=== PATIENT | female | born 1955 | race African-American/Black ===

== ENCOUNTER 2016-11-17 00:05 | Emergency (ER) | payer OTHER ==
[~2016-11-17] VITALS: Ht 152.4 cm; Wt 70.8 kg
[~2016-11-17 00:05] MED LIST: ACETAMINOPHEN-1 EAC1 ORAL; AMITRIPTYLINE25 MG PO; ANTIVERT25 MG ORAL; ATIVAN1 MG ORAL; AZITHROMYCIN250 MG ORAL; BACTRIM DS TAB1 EAC1 ORAL; BACTRIM-DS1 EA PO; CIPRO500 MG PO; COLACE100 MG PO; CYCLOBENZAPRINE10 MG ORAL; DIFLUCAN100 MG ORAL; DIFLUCAN150 MG PO; DOXYCYCLINE MO100 MG ORAL; FLAGYL500 MG ORAL; FLAGYL500 MG PO; GLUCOPHAGE500 MG PO; GLYBURIDE MICR1.5 MG PO; GUAIFENESI100 MG/5 M ORAL; HYDROCORTISONE28 G2 TP; IBUPROFEN600 MG ORAL; IBUPROFEN800 MG ORAL; KEFLEX500 MG ORAL; KENALOG 0.1% CR15 GM APPLIC; LIORESAL10 MG PO; LORAZEPAM1 MG ORAL; MECLIZINE HCL25 MG ORAL; METRONIDAZOLE500 MG ORAL; NAPROSYN500 M1 ORAL; NEURONTIN300 MG ORAL; NEURONTIN400 MG PO; NITROFURANTOIN100 M2 ORAL; NITROFURANTOIN100 MG PO; NORCO 10-325 T1 EACH PO; NORCO 10/3251 EA ORAL; ONDANSETRON ODT4 MG PO; PHENAZOPYRIDIN100 MG ORAL; PHENERGAN25 M1 PO; PROMETHAZINE-C118 M1 ORAL; TYLENOL WITH C1 EACH PO; VALIUM5 MG ORAL; VICODIN 5-5001 EACH PO; VICODIN ES 7.51 EACH PO; ZOFRAN ODT4 MG ORAL
[2016-11-17] MEDS ORDERED: Ketorolac 30mg Inj IV ONE (00:30)
[2016-11-17 00:51] LABS: APPEARANCE,URINE CLEAR; KETONES,URINE NEGATIVE (NEGATIVE); LEUKOCYTE ESTERASE ,URINE NEGATIVE (NEGATIVE); PH,URINE 6 (4.5-8.0); PROTEIN,URINE NEGATIVE (NEGATIVE); UROBILINOGEN,URINE NORMAL MG/DL (0.0-1.0)
[2016-11-17 00:53] LABS: NITRITE,URINE NEGATIVE (NEGATIVE)
[2016-11-17 01:10] LABS: BASOPHILS % (AUTO) 1.3 % (0.0-2.0); EOSINOPHILS % (AUTO) 0.8 % (0.0-3.0); MEAN CORPUSCULAR HEMOGLOBIN 29.4 PG (27.0-31.0); MEAN CORPUSCULAR HGB CONC 33.8 G/DL (32.0-36.0); MEAN CORPUSCULAR VOLUME 87 FL (80-99); MEAN PLATELET VOLUME 8.5 FL (6.5-10.1); MONOCYTES % (AUTO) 3.3 % (1.0-10.0); NEUTROPHILS % (AUTO) 56.6 % (45.0-75.0); PLATELET COUNT 237 K/UL (150-450); RED BLOOD COUNT 5.25 M/UL (4.20-5.40); RED CELL DISTRIBUTION WIDTH 11.9 % (11.6-14.8); WHITE BLOOD COUNT 10.5 K/UL (4.8-10.8)
[2016-11-17 01:34] LABS: ALANINE AMINOTRANSFERASE 9 U/L (3-33); ALBUMIN/GLOBULIN RATIO 1.5 (1.0-2.7); ANION GAP 17 (5-15); ASPARTATE AMINO TRANSFERASE 16 U/L (5-40); CALCIUM 9.9 mg/dL (8.6-10.2); CARBON DIOXIDE 25 mEQ/L (20-30); CHLORIDE 99 mEQ/L (98-107); CREATININE 0.9 mg/dL (0.5-0.9); GLOMERULAR FILTRATION RATE > 60 mL/min (>60); HEMOLYSIS 6; POTASSIUM 3.9 mEQ/L (3.4-4.9); SODIUM 141 mEQ/L (135-145)
[2016-11-17 01:36] LABS: TROPONIN I < 0.30 ng/mL (<=0.30)
[2016-11-17] MEDS ORDERED: Oxycodone/Acetaminophen 5-325 ORAL ONE (02:30)
--- NOTE | 2016-11-17 03:15 | Emergency Room Report ---
History of Present Illness General Chief Complaint: Pain Source: Patient Present Illness HPI The patient presents with exacerbation of her chronic body pain. She rates it a 7/10, diffuse, more in back. No fevers, recent trauma, worsened weakness. She also c/o smelly urine. The patient was seen in the chronic pain clinic. She ran out of her [place]. She is unable to fill a prescription for the next week. The patient suffers from spinal stenosis and DJD. No depression. No incontinence, change in bowels. No chest pain, SOB, sore throat. Allergies: Coded Allergies: LATEX (Verified Allergy, Unknown, 11/17/16) Patient History Past Medical History: see triage record Social History: Reports: smoking Social History Narrative at home Reviewed Nursing Documentation: PMH: Agreed, PSxH: Agreed Nursing Documentation-PMH Hx Cardiac Problems: Yes - diverticulitis Hx Hypertension: Yes - cervical lumbar stenosis, degenerative bone disease Hx Asthma: Yes Hx Diabetes: Yes Hx Gastrointestinal Problems: Yes Hx Neurological Problems: Yes - chronic back pain Review of Systems All Other Systems: negative except mentioned in HPI Physical Exam Vital Signs Date Time Temp Pulse Resp B/P Pulse Ox O2 Delivery O2 Flow Rate FiO2 11/17/16 00:06 97.7 71 16 110/72 100 Room Air Sp02 EP Interpretation: reviewed, normal General Appearance: well appearing, no apparent distress, alert, GCS 15, non- toxic, obese Head: normocephalic Eyes: bilateral eye PERRL, bilateral eye normal inspection ENT: moist mucus membranes Neck: supple Respiratory: chest non-tender, lungs clear, normal breath sounds Cardiovascular #1: regular rate, rhythm Cardiovascular #2: 2+ radial (R) Gastrointestinal: normal inspection, normal bowel sounds, non tender, no mass, non-distended, overweight Musculoskeletal: gait/station normal, normal range of motion, tender - lumbar - paraspinous, ambulates and able to sit without difficulty Neurologic: alert, oriented x3, motor strength/tone normal, DTRs symmetric, sensory intact, cerebellar normal, normal gait, speech normal Psychiatric: mood/affect normal Skin: normal inspection, warm/dry Medical Decision Making Diagnostic Impression: Primary Impression: Exacerbation of chronic back pain ER Course Patient with exacerbation of chronic pain after running out of her meds. C/O smelly urine. DDx: pyelo, UTI, exacerbation of chronic pain. Absence of red flag symptoms and signs. Focus on treatment of pain and checking UA. Also as some chest discomfort, EKG and labs ordered. No evidence of UTI. Other labs and EKG unremarkable. Patient improved with treatment. Ambulatory without difficulty. Discussed need to follow up with her chronic pain MD. Patient stable for outpatient observation and treatment. Laboratory Tests Test 11/17/16 00:20 11/17/16 01:00 Urine Color Pale yellow Urine Appearance Clear Urine pH 6 (4.5-8.0) Urine Specific [place] 1.010 (1.005-1.035) Urine Protein Negative (NEGATIVE) Urine Glucose (UA) Negative (NEGATIVE) Urine Ketones Negative (NEGATIVE) Urine Occult Blood Negative (NEGATIVE) Urine Nitrite Negative (NEGATIVE) Urine Bilirubin Negative (NEGATIVE) Urine Urobilinogen Normal MG/DL (0.0-1.0) Urine Leukocyte Esterase Negative (NEGATIVE) Urine Opiates Screen Negative (NEGATIVE) Urine Barbiturates Screen Negative (NEGATIVE) Phencyclidine (PCP) Screen Negative (NEGATIVE) Urine Amphetamines Screen Negative (NEGATIVE) Urine Benzodiazepines Screen Negative (NEGATIVE) Urine Cocaine Screen Negative (NEGATIVE) Urine Marijuana (THC) Screen Positive (NEGATIVE) H White Blood Count 10.5 K/UL (4.8-10.8) Red Blood Count 5.25 M/UL (4.20-5.40) Hemoglobin 15.5 G/DL (12.0-16.0) Hematocrit 45.7 % (37.0-47.0) Mean Corpuscular Volume 87 FL (80-99) Mean Corpuscular Hemoglobin 29.4 PG (27.0-31.0) Mean Corpuscular Hemoglobin Concent 33.8 G/DL (32.0-36.0) Red Cell Distribution Width 11.9 % (11.6-14.8) Platelet Count 237 K/UL (150-450) Mean Platelet Volume 8.5 FL (6.5-10.1) Neutrophils (%) (Auto) 56.6 % (45.0-75.0) Lymphocytes (%) (Auto) 38.0 % (20.0-45.0) Monocytes (%) (Auto) 3.3 % (1.0-10.0) Eosinophils (%) (Auto) 0.8 % (0.0-3.0) Basophils (%) (Auto) 1.3 % (0.0-2.0) Sodium Level 141 mEQ/L (135-145) Potassium Level 3.9 mEQ/L (3.4-4.9) Chloride Level 99 mEQ/L (98-107) Carbon Dioxide Level 25 mEQ/L (20-30) Anion Gap 17 (5-15) H Blood Urea Nitrogen 10 mg/dL (7-23) Creatinine 0.9 mg/dL (0.5-0.9) Estimate Glomerular Filtration Rate > 60 mL/min (>60) Glucose Level 117 mg/dL (74-106) H Calcium Level 9.9 mg/dL (8.6-10.2) Total Bilirubin 0.3 mg/dL (0.0-1.2) Aspartate Amino Transferase (AST) 16 U/L (5-40) Alanine Aminotransferase (ALT) 9 U/L (3-33) Alkaline Phosphatase 70 U/L (35-104) Total Creatine Kinase 74 U/L (26-140) Troponin I < 0.30 ng/mL (<=0.30) Total Protein 7.0 g/dL (6.6-8.7) Albumin 4.3 g/dL (3.5-5.2) Globulin 2.7 g/dL Albumin/Globulin Ratio 1.5 (1.0-2.7) EKG Diagnostic Results Rate: normal Rhythm: NSR ST Segments: no acute changes Rhythm Strip Diag. Results EP Interpretation: yes Rhythm: NSR, no PVC's, no ectopy Last Vital Signs Date Time Temp Pulse Resp B/P Pulse Ox O2 Delivery O2 Flow Rate FiO2 11/17/16 03:40 97.7 67 14 138/74 100 Room Air Status: improved Disposition: HOME, SELF-CARE Condition: Improved Scripts Acetaminophen (Tylenol) 325 Mg Tablet 650 MG ORAL Q6H Y for Prn Pain/Headache/Temp > 101, #30 TAB 0 Refills Prov: Gualberto Clarke M.D. 11/17/16 Ibuprofen* (MOTRIN*) 600 Mg Tablet 600 MG ORAL Q6H Y for For Pain, #20 TAB Prov: Gualberto Clarke M.D. 11/17/16 Referrals: [facility],REFERRING (PCP) Gualberto Clarke M.D. Nov 17, 2016 03:15
[2016-11-17 03:22] VITALS: BP 138/74
[2016-11-17] MEDS ORDERED: TYLENOL325 MG ORAL (03:25)
[2016-11-17] MEDS ORDERED: IBUPROFEN600 MG ORAL (03:25)
[2016-11-17 03:40] VITALS: BP 138/74
--- NOTE | 2016-11-20 11:36 | Cardiology Report ---
APPROVED REPORT EKG Measurement Heart [id number] Normal sinus rhythm with sinus arrhythmia Normal ECG
== END 2016-11-17 03:41 | disposition home or self-care (01) ==
LOC: EMR 00:20
DX: M54.9 Dorsalgia, unspecified (principal); G89.29 Other chronic pain; J45.909 Unspecified asthma, uncomplicated; E11.9 Type 2 diabetes mellitus without complications; M48.06 Spinal stenosis, lumbar region; M89.8X9 Other specified disorders of bone, unspecified site; F17.200 Nicotine dependence, unspecified, uncomplicated; Z91.040 Latex allergy status
CPT/HCPCS: 36415; 80053; 80300; 81003; 82550; 84484; 85025; 93005; 96360; 96361; 96374; 96375; 99284; J1885; J2405

== ENCOUNTER 2017-02-22 12:33 | Emergency (ER) | payer OTHER ==
[~2017-02-22] VITALS: Ht 154.9 cm; Wt 68.0 kg
[~2017-02-22 12:33] MED LIST changes: +TYLENOL325 MG ORAL
[2017-02-22 12:44] VITALS: BP 124/98
[2017-02-22] MEDS ORDERED: Norco 5mg/325mg tab ORAL ONE (13:15)
[2017-02-22 13:41] LABS: APPEARANCE,URINE SLIGHTLY CLOUDY; KETONES,URINE NEGATIVE (NEGATIVE); LEUKOCYTE ESTERASE ,URINE 2+ (NEGATIVE); NITRITE,URINE POSITIVE (NEGATIVE); PH,URINE 6 (4.5-8.0); PROTEIN,URINE NEGATIVE (NEGATIVE); UROBILINOGEN,URINE NORMAL MG/DL (0.0-1.0)
[2017-02-22] MEDS ORDERED: CEPHALEXIN500 MG ORAL (13:45)
[2017-02-22] MEDS ORDERED: DIFLUCAN150 MG PO (13:55)
[2017-02-22] MEDS ORDERED: Ketorolac 30mg Inj IM ONE (14:00)
[2017-02-22 14:03] LABS: BACTERIA,URINE MANY /HPF; RBC,URINE 0-2 /HPF (0 - 2); SQUAMOUS EPITHELIAL CELL,UR FEW /LPF (NONE/OCC); WBC,URINE 20-30 /HPF (0 - 2)
[2017-02-22 14:50] VITALS: BP 133/81
[2017-02-22] MEDS ORDERED: IBUPROFEN600 MG ORAL (14:50)
[2017-02-22] MEDS ORDERED: MONISTAT 324 GM VG (14:50)
--- NOTE | 2017-02-22 22:00 | Emergency Room Report ---
History of Present Illness General Chief Complaint: Lower Back Pain or Injury Source: Patient, Medical Record Present Illness HPI The patient is a 61-year-old female with a history of chronic back pain presenting for back pain and dysuria. The patient states that she has been using her prescribed [place] as directed for pain of the back has been increasing and is now a 9/10 dull ache and does not radiate from the right lower side. Pain worse with movement. Pain radiates down the back of the right leg. Dysuria and a malodorous urine has been present for the past week. She admits to burning with urination. She denies other vaginal discharge or hematuria. She denies other symptoms including N, V, F, chills, SOb, CP Allergies: Coded Allergies: LATEX (Verified Allergy, Unknown, 11/17/16) Patient History Past Medical History: see triage record Pertinent Family History: none Reviewed Nursing Documentation: PMH: Agreed, PSxH: Agreed Nursing Documentation-PMH Past Medical History: No History, Except For Hx Cardiac Problems: Yes - diverticulitis Hx Hypertension: Yes - cervical lumbar stenosis, degenerative bone disease Hx Asthma: Yes Hx Diabetes: Yes Hx Gastrointestinal Problems: Yes Hx Neurological Problems: Yes - chronic back pain Review of Systems All Other Systems: negative except mentioned in HPI Physical Exam Vital Signs Date Time Temp Pulse Resp B/P Pulse Ox O2 Delivery O2 Flow Rate FiO2 02/22/17 12:44 98.1 71 17 124/98 98 Room Air Sp02 EP Interpretation: reviewed, normal General Appearance: no apparent distress, alert, GCS 15, non-toxic Head: normocephalic, atraumatic Eyes: bilateral eye PERRL, bilateral eye normal inspection Neck: full range of motion, supple/symm/no masses Gastrointestinal: normal bowel sounds, non tender, soft, non-distended, no guarding, no rebound Musculoskeletal: normal inspection, normal range of motion, no calf tenderness , tender - TTP over the R lower nick and hamstring Neurologic: alert, oriented x3, responsive, motor strength/tone normal, sensory intact, speech normal Psychiatric: judgement/insight normal, memory normal, mood/affect normal, no suicidal/homicidal ideation Skin: normal color, no rash, warm/dry, well hydrated Lymphatic: no adenopathy Medical Decision Making PA Attestation Dr. Harrison is my supervising physician. Patient management was discussed with my supervising physician Diagnostic Impression: Primary Impression: Chronic pain Qualified Codes: G89.29 - Other chronic pain Additional Impression: Urinary tract infection Qualified Codes: N39.0 - Urinary tract infection, site not specified ER Course The patient is a 61-year-old female with a history of chronic back pain Ddx considered include but not limited to lumbar strain, degenerative disease, chronic pain, narcotic dependency, UTI, pyelonephritis PE: afebrile. NAD Abdomen is soft and nontender. No CVA tenderness There is tenderness to palpation over the right lumbar paraspinal muscles and buttock. Otherwise exam unremarkable Urinalysis is consistent with urinary tract infection The patient was offered norco in the emergency department and refused. CURES report shows that the patient receive more than 100 [place] within the past 2 weeks. She is given Toradol IM and needs to followup with pain management and primary doctor. She'll be treated for UTI with Keflex. She is also given a prescription for Diflucan that she states that she frequently gets yeast infections after antibiotics. ER precautions given Laboratory Tests Test 02/22/17 12:56 Urine Color Pale yellow Urine Appearance Slightly cloudy Urine pH 6 (4.5-8.0) Urine Specific Lane 1.015 (1.005-1.035) Urine Protein Negative (NEGATIVE) Urine Glucose (UA) Negative (NEGATIVE) Urine Ketones Negative (NEGATIVE) Urine Occult Blood Negative (NEGATIVE) Urine Nitrite Positive (NEGATIVE) H Urine Bilirubin Negative (NEGATIVE) Urine Urobilinogen Normal MG/DL (0.0-1.0) Urine Leukocyte Esterase 2+ (NEGATIVE) H Urine RBC 0-2 /HPF (0 - 2) Urine WBC 20-30 /HPF (0 - 2) H Urine Squamous Epithelial Cells Few /LPF (NONE/OCC) Urine Bacteria Many /HPF (NONE) H Lab Results Impression consistent with UTI Last Vital Signs Date Time Temp Pulse Resp B/P Pulse Ox O2 Delivery O2 Flow Rate FiO2 02/22/17 14:50 72 16 133/81 97 Room Air 02/22/17 12:44 98.1 Status: improved Disposition: HOME, SELF-CARE Condition: Improved Scripts Miconazole Nitrate (MONISTAT 3) 24 Gm Cmb.pf.crm 1 APPLIC VG QHS for 7 Days, #24 GM Prov: TERZIANROXANA P.A. 02/22/17 Ibuprofen* (MOTRIN*) 600 Mg Tablet 600 MG ORAL Q8H Y for For Pain, #30 TAB 0 Refills Prov: ROXANA THORNEAAshely 02/22/17 Fluconazole (DIFLUCAN) 150 Mg Tablet 150 MG PO DAILY, #1 TAB Prov: CHANDUANROXANA P.A. 02/22/17 Cephalexin* (KEFLEX*) 500 Mg Capsule 500 MG ORAL EVERY 6 HOURS, #28 CAP Prov: CHANDUANROXANA P.A. 02/22/17 Patient Instructions: Dysuria, Back Pain, Adult Additional Instructions: I discussed my findings with the patient. All questions and concerns have been answered. Treatment and medication compliance have been addressed. I advised the patient that they need to follow up with PMD in 3-5 days. Return to ED if symptoms worsen, new symptoms arise, or if needed for any reason. Patient verbalized understanding of discharge instructions. Please follow up with pain management. ROXANA THORNE Feb 22, 2017 22:00
== END 2017-02-22 14:50 | disposition home or self-care (01) ==
LOC: EMR 13:10
DX: G89.29 Other chronic pain (principal); N39.0 Urinary tract infection, site not specified; I10 Essential (primary) hypertension; E11.9 Type 2 diabetes mellitus without complications; M48.02 Spinal stenosis, cervical region; M48.06 Spinal stenosis, lumbar region; Z91.040 Latex allergy status
CPT/HCPCS: 81003; 87086; 87181; 96372; 99284; J1885

== ENCOUNTER 2017-03-02 23:41 | Emergency (ER) | payer OTHER ==
[~2017-03-02] VITALS: Ht 154.9 cm; Wt 72.1 kg
[~2017-03-02 23:41] MED LIST changes: +CEPHALEXIN500 MG ORAL; +MONISTAT 324 GM VG
[2017-03-03] MEDS ORDERED: HYDROmorphone 1mg/ml Carpuject IM ONE (01:15)
[2017-03-03 01:30] LABS: APPEARANCE,URINE CLEAR; KETONES,URINE NEGATIVE (NEGATIVE); LEUKOCYTE ESTERASE ,URINE NEGATIVE (NEGATIVE); NITRITE,URINE POSITIVE (NEGATIVE); PH,URINE 6 (4.5-8.0); PROTEIN,URINE NEGATIVE (NEGATIVE); UROBILINOGEN,URINE NORMAL MG/DL (0.0-1.0)
[2017-03-03 01:43] LABS: BACTERIA,URINE MANY /HPF; RBC,URINE 0-2 /HPF (0 - 2); SQUAMOUS EPITHELIAL CELL,UR FEW /LPF (NONE/OCC)
[2017-03-03] MEDS ORDERED: Lidocaine 1% MPF 10mg/ml 5ml ONE (01:59)
[2017-03-03] MEDS ORDERED: HYDROCORTISONE30 G2 TP (02:05)
[2017-03-03] MEDS ORDERED: LEVAQUIN500 MG ORAL (02:05)
[2017-03-03] MEDS ORDERED: IBUPROFEN600 MG ORAL (02:05)
--- NOTE | 2017-03-03 02:05 | Emergency Room Report ---
History of Present Illness General Chief Complaint: Pain Source: Patient Present Illness HPI Is a 61-year-old female with history of chronic pain of her neck and back. She' s taking pain medication and seen a pain specialist already. She presents with chief complaint of exacerbation of her neck and back pain. Also with complaint of urinary complaint of dysuria frequency. She was here 8 days ago diagnosed with UTI. She was given Keflex. Urine culture grew out Escherichia coli which is sensitive to Keflex. She said she never got better. No fever or chills. No nausea no vomiting. Still has dysuria and frequency. Allergies: Coded Allergies: LATEX (Verified Allergy, Unknown, 11/17/16) Patient History Past Medical History: see triage record, old chart reviewed Past Surgical History: other Pertinent Family History: none Social History: Denies: smoking Now: No Immunizations: other Reviewed Nursing Documentation: PMH: Agreed, PSxH: Agreed Nursing Documentation-PM Past Medical History: No History, Except For Hx Cardiac Problems: Yes - diverticulitis Hx Hypertension: Yes - cervical lumbar stenosis, degenerative bone disease Hx Asthma: Yes Hx Diabetes: Yes Hx Gastrointestinal Problems: Yes Hx Neurological Problems: Yes - chronic back pain Review of Systems Eye: Denies: blurred vision, eye pain ENT: Denies: ear pain, nose congestion, throat swelling Respiratory: Denies: cough, shortness of breath Cardiovascular: Denies: chest pain, palpitations Gastrointestinal: Denies: abdominal pain, diarrhea, nausea, vomiting Genitourinary: Reports: urgency Musculoskeletal: Reports: back pain, joint pain Skin: Denies: rash Neurological: Denies: headache, numbness Endocrine: Denies: increased thirst, increased urine Hematologic/Lymphatic: Denies: easy bruising All Other Systems: negative except mentioned in HPI Physical Exam Vital Signs Date Time Temp Pulse Resp B/P Pulse Ox O2 Delivery O2 Flow Rate FiO2 03/02/17 23:52 98.2 94 16 136/86 99 Room Air vitals normal Sp02 EP Interpretation: reviewed, normal General Appearance: well appearing, no apparent distress, alert Head: normocephalic, atraumatic Eyes: bilateral eye EOMI, bilateral eye PERRL ENT: hearing grossly normal, normal pharynx Neck: full range of motion, supple, no meningismus Respiratory: chest non-tender, lungs clear, normal breath sounds Cardiovascular #1: regular rate, rhythm, no murmur Gastrointestinal: normal bowel sounds, non tender, no mass, no organomegaly, no bruit, non-distended Musculoskeletal: back normal, gait/station normal, normal range of motion, other - Diffuse pain but patient walking around without difficulty the Neurologic: alert, oriented x3 Psychiatric: mood/affect normal Skin: warm/dry Medical Decision Making Diagnostic Impression: Primary Impression: Chronic pain Qualified Codes: G89.4 - Chronic pain syndrome Additional Impressions: Urinary tract infection Qualified Codes: N30.00 - Acute cystitis without hematuria Opiate dependence Qualified Codes: F11.20 - Opioid dependence, uncomplicated Rash and nonspecific skin eruption ER Course Patient presents with chronic pain and UTI symptoms. We'll switch antibiotics past. No onset of arthritis. No evidence of sepsis. No evidence of cauda equina syndrome, spinal epidural abscess or neoplastic process. Last Vital Signs Date Time Temp Pulse Resp B/P Pulse Ox O2 Delivery O2 Flow Rate FiO2 03/03/17 01:57 98.2 03/02/17 23:52 94 16 136/86 99 Room Air Status: improved Disposition: HOME, SELF-CARE Condition: Stable Scripts Hydrocortisone (Hydrocortisone Cream 2.5%) Y Cream.appl 1 APPLIC TP BID, #15 GM Prov: STANFORD COOPER M.D. 03/03/17 Levofloxacin* (LEVAQUIN*) 500 Mg Tablet 500 MG ORAL DAILY, #7 TAB Prov: STANFORD COOPER M.D. 03/03/17 Ibuprofen* (MOTRIN*) 600 Mg Tablet 600 MG ORAL THREE TIMES A DAY, #30 TAB 0 Refills Prov: STANFORD COOPER M.D. 03/03/17 Referrals: [facility],REFERRING (PCP) Additional Instructions: Followup with your pain management DrAshely for refill your medication. Followup with your Dr. in 7 days. Return if symptom worsen. STANFORD COOPER M.D. Mar 03, 2017 02:05
[2017-03-03 02:07] VITALS: BP 136/86
[2017-03-03 02:09] VITALS: BP 136/86
== END 2017-03-03 02:12 | disposition home or self-care (01) ==
LOC: EMR 23:59
DX: G89.4 Chronic pain syndrome (principal); N30.00 Acute cystitis without hematuria; F11.20 Opioid dependence, uncomplicated; R21 Rash and other nonspecific skin eruption; K57.90 Diverticulosis of intestine, part unspecified, without perforation or abscess without bleeding; I10 Essential (primary) hypertension; M48.02 Spinal stenosis, cervical region; M48.06 Spinal stenosis, lumbar region; E11.9 Type 2 diabetes mellitus without complications; J45.909 Unspecified asthma, uncomplicated; Z91.040 Latex allergy status
CPT/HCPCS: 81003; 87086; 87181; 96372; 99284; J0696; J1170

== ENCOUNTER 2017-06-17 08:43 | Emergency (ER) | payer OTHER ==
[~2017-06-17] VITALS: Ht 149.9 cm; Wt 69.9 kg
[~2017-06-17 08:43] MED LIST changes: +HYDROCORTISONE30 G2 TP; +LEVAQUIN500 MG ORAL
[2017-06-17 09:17] VITALS: BP 104/63
--- NOTE | 2017-06-17 09:20 | Emergency Room Report ---
History of Present Illness General Chief Complaint: Female Urogenital Problems Source: Patient Present Illness HPI 61 yo F p/w dysuria Pt states symptoms began 6 days ago. +dysuria, frequency, urgency. No hematuria. No fever chills abdominal or flank pain. Monogamous with 1 partner, No hx of STDs. Also states that she has white vaginal discharge, with itching Allergies: Coded Allergies: LATEX (Verified Allergy, Unknown, 11/17/16) Patient History Past Medical History: see triage record Past Surgical History: none Pertinent Family History: none Reviewed Nursing Documentation: PMH: Agreed, PSxH: Agreed Nursing Documentation-PMH Hx Hypertension: Yes - cervical lumbar stenosis, degenerative bone disease Hx Asthma: Yes Hx Diabetes: Yes Hx Gastrointestinal Problems: Yes - Diverticulosis Hx Neurological Problems: Yes - chronic back pain Review of Systems All Other Systems: negative except mentioned in HPI Physical Exam Vital Signs Date Time Temp Pulse Resp B/P (MAP) Pulse Ox O2 Delivery O2 Flow Rate FiO2 06/17/17 08:51 98.8 88 16 104/63 96 Room Air Sp02 EP Interpretation: reviewed, normal General Appearance: normal inspection, well appearing, no apparent distress, alert, GCS 15, non-toxic Head: normocephalic, atraumatic Eyes: bilateral eye normal inspection, bilateral eye PERRL, bilateral eye EOMI ENT: normal ENT inspection, normal pharynx, normal voice, moist mucus membranes Neck: normal inspection, full range of motion, supple Respiratory: normal inspection, lungs clear, normal breath sounds, no respiratory distress, no retraction, no wheezing, speaking full sentences, chest symmetrical Cardiovascular #1: normal inspection, regular rate, rhythm, no edema, normal capillary refill Cardiovascular #2: 2+ radial (R), 2+ radial (L) Gastrointestinal: normal inspection, non tender, soft, non-distended, no guarding Musculoskeletal: normal inspection, back normal, normal range of motion, non- tender Neurologic: normal inspection, alert, oriented x3, responsive, motor strength/ tone normal, sensory intact, normal gait, speech normal Psychiatric: normal inspection, judgement/insight normal, memory normal Skin: normal inspection, normal color, no rash, warm/dry, well hydrated, normal turgor Medical Decision Making Diagnostic Impression: Primary Impression: UTI (urinary tract infection) Additional Impression: Yeast infection ER Course 61 yo F with dysuria DDX: UTI / cystitis vs. pyelo vs yeast infection Plan: fluconazole for yeast infection UA ER course: Pt remains stable/nontoxic appearing in ED. UA positive Disposition: Patient will be discharged home with prescription of antibiotics. Strict return precautions to discussed with patient such as high fever, chills, abdominal pain , nausea or vomiting. Patient verbalized understanding. Patient instructed to follow up with primary care doctor within 3 days. Patient agrees with plan. Please note that this Emergency Department Report was dictated using [employer] technology software, occasionally this can lead to erroneous entry secondary to interpretation by the dictation equipment Labs Test 06/17/17 09:10 Urine Color Pale yellow Urine Appearance Clear Urine pH 5 (4.5-8.0) Urine Specific [place] 1.010 (1.005-1.035) Urine Protein Negative (NEGATIVE) Urine Glucose (UA) Negative (NEGATIVE) Urine Ketones Negative (NEGATIVE) Urine Occult Blood 1+ (NEGATIVE) Urine Nitrite Positive (NEGATIVE) Urine Bilirubin Negative (NEGATIVE) Urine Urobilinogen Normal MG/DL (0.0-1.0) Urine Leukocyte Esterase 1+ (NEGATIVE) Urine RBC 2-4 /HPF (0 - 2) Urine WBC 15-20 /HPF (0 - 2) Urine Squamous Epithelial Cells Few /LPF (NONE/OCC) Urine Bacteria Moderate /HPF (NONE) Last Vital Signs Date Time Temp Pulse Resp B/P (MAP) Pulse Ox O2 Delivery O2 Flow Rate FiO2 06/17/17 08:51 98.8 88 16 104/63 96 Room Air Disposition: HOME, SELF-CARE Condition: Improved Scripts Ibuprofen* (MOTRIN*) 600 Mg Tablet 800 MG ORAL Q6H Y for For Pain, #30 TAB 0 Refills Prov: Madi Johnston M.D. 06/17/17 Cephalexin* (KEFLEX*) 500 Mg Capsule 500 MG ORAL Q6H, #28 CAP 0 Refills Prov: Mdai Johnston M.D. 06/17/17 Madi Johnston M.D. Jun 17, 2017 09:20
[2017-06-17 09:30] LABS: APPEARANCE,URINE CLEAR; KETONES,URINE NEGATIVE (NEGATIVE); LEUKOCYTE ESTERASE ,URINE 1+ (NEGATIVE); NITRITE,URINE POSITIVE (NEGATIVE); PH,URINE 5 (4.5-8.0); PROTEIN,URINE NEGATIVE (NEGATIVE); UROBILINOGEN,URINE NORMAL MG/DL (0.0-1.0)
[2017-06-17] MEDS ORDERED: KEFLEX500 MG ORAL (09:40)
[2017-06-17] MEDS ORDERED: Fluconazole 100mg tab ORAL ONE (09:45)
[2017-06-17 09:50] LABS: BACTERIA,URINE MODERATE /HPF; SQUAMOUS EPITHELIAL CELL,UR FEW /LPF (NONE/OCC); WBC,URINE 15-20 /HPF (0 - 2)
[2017-06-17 10:03] VITALS: BP 104/63
[2017-06-17] MEDS ORDERED: IBUPROFEN600 MG ORAL (10:11)
== END 2017-06-17 10:12 | disposition home or self-care (01) ==
LOC: EMR 09:20
DX: N39.0 Urinary tract infection, site not specified (principal); B37.9 Candidiasis, unspecified; Z91.040 Latex allergy status; E11.9 Type 2 diabetes mellitus without complications; K57.90 Diverticulosis of intestine, part unspecified, without perforation or abscess without bleeding; I10 Essential (primary) hypertension; M48.02 Spinal stenosis, cervical region; M48.061 Spinal stenosis, lumbar region without neurogenic claudication
CPT/HCPCS: 81003; 87086; 87181; 99283

== ENCOUNTER 2017-06-24 12:31 | Emergency (ER) | payer OTHER ==
[~2017-06-24] VITALS: Ht 152.4 cm; Wt 77.1 kg
[2017-06-24 12:50] VITALS: BP 146/74
--- NOTE | 2017-06-24 13:01 | Emergency Room Report ---
History of Present Illness General Chief Complaint: Female Urogenital Problems Source: Patient Present Illness [facility] The patient is a 61-year-old female presenting for dysuria, increased urinary frequency, and mid lower abdominal pain. She states her symptoms began 2 weeks prior. She was seen in this emergency department one week ago and treated for yeast infection. She states that symptoms continued and have not improved at all. Pain is described as a 9/10 burning sensation and occurs with urination. She denies any nausea, vomiting, fever, chills, back pain, diarrhea, constipation, chest pain, shortness of breath Allergies: Coded Allergies: LATEX (Verified Allergy, Unknown, 11/17/16) Patient History Past Medical History: see triage record Pertinent Family History: none Last Menstrual Period: Post menapause Now: No Reviewed Nursing Documentation: PMH: Agreed, PSxH: Agreed Nursing Documentation-PMH Past Medical History: No History, Except For Hx Hypertension: Yes - cervical lumbar stenosis, degenerative bone disease Hx Asthma: Yes Hx Diabetes: Yes Hx Gastrointestinal Problems: Yes - diverticulitis Hx Neurological Problems: Yes - chronic back pain Review of Systems All Other Systems: negative except mentioned in HPI Physical Exam Vital Signs Date Time Temp Pulse Resp B/P (MAP) Pulse Ox O2 Delivery O2 Flow Rate FiO2 06/24/17 12:41 99.0 92 18 146/74 97 Sp02 EP Interpretation: reviewed, normal General Appearance: no apparent distress, alert, GCS 15, non-toxic Head: normocephalic, atraumatic Eyes: bilateral eye normal inspection, bilateral eye PERRL ENT: hearing grossly normal, normal pharynx, no angioedema, normal voice Neck: full range of motion, supple/symm/no masses Gastrointestinal: normal inspection, normal bowel sounds, soft, no mass, tenderness - suprapubic Genitourinary: normal inspection, no CVA tenderness Musculoskeletal: back normal, gait/station normal, normal range of motion, non- tender, calf tenderness Neurologic: alert, oriented x3, responsive, motor strength/tone normal, sensory intact, speech normal Psychiatric: judgement/insight normal, memory normal, mood/affect normal, no suicidal/homicidal ideation Skin: normal color, no rash, warm/dry, well hydrated Medical Decision Making PA Attestation Dr. Johnston is my supervising physician. Patient management was discussed with my supervising physician Diagnostic Impression: Primary Impression: UTI (urinary tract infection) Qualified Codes: N30.00 - Acute cystitis without hematuria ER Course The patient is a 61-year-old female presenting for dysuria, increased urinary frequency, and mid lower abdominal pain Differential diagnosis considered but not limited to: UTI, BV, yeast infection, pyelonephritis, among others PE: Vitals WNL. NAD. Abdomen: Normal appearance. Non distended. No ecchymosis. Normal BS. TTP over suprapubic region only. No McBurney point tenderness. No guarding. No CVA tenderness Urinalysis shows no signs of infection. Due to the patient's microbiology report showing Escherichia coli one week prior with no treatment, she'll be discharged home with prescription for Macrobid. She also states she gets vaginal yeast infections after using Abx and is given prescription for Diflucan. The patient discharged home with a prescription for Macrobid and is given ER precautions. Laboratory Tests Test 06/24/17 13:02 Urine Color Pale yellow Urine Appearance Clear Urine pH 5 (4.5-8.0) Urine Specific [place] 1.015 (1.005-1.035) Urine Protein Negative (NEGATIVE) Urine Glucose (UA) Negative (NEGATIVE) Urine Ketones Negative (NEGATIVE) Urine Occult Blood Negative (NEGATIVE) Urine Nitrite Negative (NEGATIVE) Urine Bilirubin Negative (NEGATIVE) Urine Urobilinogen Normal MG/DL (0.0-1.0) Urine Leukocyte Esterase Negative (NEGATIVE) Lab Results Impression No signs of infection Last Vital Signs Date Time Temp Pulse Resp B/P (MAP) Pulse Ox O2 Delivery O2 Flow Rate FiO2 06/24/17 12:41 99.0 92 18 146/74 97 Status: improved Disposition: HOME, SELF-CARE Condition: Improved Scripts Acetaminophen* (TYLENOL EXTRA STRENGTH*) 500 Mg Tablet 500 MG ORAL Q8H Y for Prn Headache/Temp > 101, #30 TAB 0 Refills Prov: TERZIAN,ROXANA P.A. 06/24/17 Fluconazole (DIFLUCAN) 150 Mg Tablet 150 MG PO DAILY, #1 TAB Prov: TERZIAN,ROXANA P.A. 06/24/17 Phenazopyridine Hcl* (PYRIDIUM*) 100 Mg Tablet 100 MG ORAL THREE TIMES A DAY, #6 TAB Prov: TERZIAN,ROXANA P.A. 10/23/17 Nitrofurantoin Monohyd/M-Cryst* (MACROBID 100 MG*) 100 Mg Capsule 100 MG ORAL EVERY 12 HOURS, #14 CAP Prov: ROXANA THORNE 06/24/17 ROXANA THORNE Jun 24, 2017 13:01
[2017-06-24 13:29] LABS: APPEARANCE,URINE CLEAR; KETONES,URINE NEGATIVE (NEGATIVE); LEUKOCYTE ESTERASE ,URINE NEGATIVE (NEGATIVE); NITRITE,URINE NEGATIVE (NEGATIVE); PH,URINE 5 (4.5-8.0); PROTEIN,URINE NEGATIVE (NEGATIVE); UROBILINOGEN,URINE NORMAL MG/DL (0.0-1.0)
[2017-06-24] MEDS ORDERED: NITROFURANTOIN100 M2 ORAL (13:43)
[2017-06-24] MEDS ORDERED: DIFLUCAN150 MG PO (13:43)
[2017-06-24] MEDS ORDERED: PHENAZOPYRIDIN100 MG ORAL (13:43)
[2017-06-24 13:50] VITALS: BP 146/74
[2017-06-24] MEDS ORDERED: TYLENOL EXTRA500 MG ORAL (13:54)
== END 2017-06-24 15:00 | disposition home or self-care (01) ==
LOC: EMR 14:00
DX: N39.0 Urinary tract infection, site not specified (principal); E11.9 Type 2 diabetes mellitus without complications; J45.909 Unspecified asthma, uncomplicated; I10 Essential (primary) hypertension; M48.02 Spinal stenosis, cervical region; M48.061 Spinal stenosis, lumbar region without neurogenic claudication; G89.29 Other chronic pain; Z91.040 Latex allergy status
CPT/HCPCS: 81003; 99284

== ENCOUNTER 2017-07-07 01:36 | Emergency (ER) | payer OTHER ==
[~2017-07-07] VITALS: Ht 152.4 cm; Wt 70.3 kg
[~2017-07-07 01:36] MED LIST changes: +TYLENOL EXTRA500 MG ORAL
[2017-07-07] MEDS ORDERED: NKM (01:56)
[2017-07-07 02:04] VITALS: BP 118/70
[2017-07-07] MEDS ORDERED: ZITHROMAX TRI-500 MG ORAL (02:24)
--- NOTE | 2017-07-07 02:24 | Emergency Room Report ---
History of Present Illness General Chief Complaint: Upper Respiratory Illness Source: Patient Present Illness HPI 61-year-old female history of chronic pain, presenting with chronic back pain and cough. Patient states that she has cervical stenosis, states that she's had increasing pain. No arm or leg weakness or numbness. No recent trauma. Also complaining of 2 days of cough with thick green sputum. No fever no chills no shortness of breath no recent travel no sick contacts Patient asking for a lot of pain meds, cures report states that she gets 100 pills of [place] from multiple doctors every month Allergies: Coded Allergies: LATEX (Verified Allergy, Unknown, 11/17/16) Patient History Past Medical History: see triage record Past Surgical History: none Pertinent Family History: none Last Menstrual Period: n/a Reviewed Nursing Documentation: PMH: Agreed, PSxH: Agreed Nursing Documentation-PMH Past Medical History: No History, Except For Hx Hypertension: Yes - cervical lumbar stenosis, degenerative bone disease Hx Asthma: Yes Hx COPD: No - PNA Hx Diabetes: Yes Hx Gastrointestinal Problems: Yes - diverticulitis Hx Neurological Problems: Yes - chronic back pain Review of Systems All Other Systems: negative except mentioned in HPI Physical Exam Vital Signs Date Time Temp Pulse Resp B/P (MAP) Pulse Ox O2 Delivery O2 Flow Rate FiO2 07/07/17 01:53 98.6 80 16 132/72 100 Room Air Sp02 EP Interpretation: reviewed, normal General Appearance: normal inspection, well appearing, no apparent distress, alert, GCS 15, non-toxic Head: normocephalic, atraumatic Eyes: bilateral eye normal inspection, bilateral eye PERRL, bilateral eye EOMI ENT: normal ENT inspection, normal pharynx, normal voice, moist mucus membranes Neck: supple, other - paraspinal cervical tendenress no midline tendenress, FROM Respiratory: no respiratory distress, no retraction, no wheezing, speaking full sentences, other - coarse breath sounds L versus R, chest symmetrical Cardiovascular #1: normal inspection, regular rate, rhythm, no edema, normal capillary refill Cardiovascular #2: 2+ radial (R), 2+ radial (L) Gastrointestinal: normal inspection, non tender, soft, non-distended, no guarding Musculoskeletal: normal inspection, back normal, normal range of motion, non- tender Neurologic: normal inspection, alert, oriented x3, responsive, motor strength/ tone normal, sensory intact, normal gait, speech normal Psychiatric: normal inspection, judgement/insight normal, memory normal Skin: normal inspection, normal color, no rash, warm/dry, well hydrated, normal turgor Medical Decision Making Diagnostic Impression: Primary Impression: Atypical pneumonia Additional Impression: Chronic pain ER Course 61-year-old female with chronic neck pain also complaining of cough for 2 days DDX: Rule out pneumonia versus viral URI Chronic pain in back and neck Serious diagnoses such as cord compression, epidural abscess is unlikely in this patient given the clinical scenario and abscess of neurological symptoms or findings. Patient appears nontoxic. Plan: Chest x-ray ER course: Patient has remained stable during ED stay. Will give Toradol IM for pain She is not in acute distress, is conversing with her family member at bedside, has full range of motion She is requesting pain medication -- "the one that starts with a D". I told patient that I am not going to be giving this pain medication at this time, she is not in acute distress and she does not appear to be in pain. Hurts your report reveals multiple opiate medications prescribed every month Disposition: Patient is to be discharged to home. Prescriptions given are azithromycin Patient is instructed to follow up with their primary care doctor within 5 days. Patient told to followup with pain specialist Strict return precautions discussed with patient such as fever, chills, worsening/severe pain, nausea, vomiting, which may indicate severe illness. Patient verbalizes understanding and agrees with plan. Please note that this Emergency Department Report was dictated using [employer] solar[employer] administrator technology software, occasionally this can lead to erroneous entry secondary to interpretation by the dictation equipment Chest X-ray CXR: Ordered: Yes 1 view Indication: Chest pain EP interpretation: Yes Interpretation: Possible interstitial infiltrates, cannot rule out infiltrate left lower lobe Impression: Possible atypical pneumonia Electronically signed by Madi Johnston MD Last Vital Signs Date Time Temp Pulse Resp B/P (MAP) Pulse Ox O2 Delivery O2 Flow Rate FiO2 07/07/17 02:04 78 16 Room Air 07/07/17 02:04 98.4 118/70 100 Disposition: HOME, SELF-CARE Condition: Stable Scripts Azithromycin (ZITHROMAX TRI-[place]IL[place]) 500 Mg Tablet 500 MG ORAL DAILY, #1 PACK 0 Refills Prov: Madi Johnston M.D. 07/07/17 Referrals: [facility],REFERRING (PCP) Patient Instructions: Chronic Pain, Community-Acquired Pneumonia, Adult Madi Johnston M.D. Jul 07, 2017 02:24
[2017-07-07] MEDS ORDERED: Ketorolac 60mg Inj IM ONE (02:30)
[2017-07-07 02:43] VITALS: BP 118/70
[2017-07-07] MEDS ORDERED: ALBUTEROL SULF8.5 GM INH (08:29)
[2017-07-07] MEDS ORDERED: ADULT WAL-100 MG/5 M ORAL (08:53)
--- NOTE | 2017-07-07 11:10 | Diagnostic Imaging Report ---
Indication: Cough Technique: CHEST 1 VIEW Comparison:03/14/2014 Findings: The patient has taken a suboptimal inspiration. The heart is normal in size. Lungs are clear. No pleural fluid. Spurring is noted in the thoracic spine. Impression: Degenerative change of the thoracic spine. Otherwise negative.
[2017-07-07] MEDS ORDERED: ZITHROMAX250 MG ORAL (11:41)
== END 2017-07-07 02:43 | disposition home or self-care (01) ==
LOC: EMR 02:11
DX: J18.9 Pneumonia, unspecified organism (principal); G89.29 Other chronic pain; J45.909 Unspecified asthma, uncomplicated; E11.9 Type 2 diabetes mellitus without complications; K57.90 Diverticulosis of intestine, part unspecified, without perforation or abscess without bleeding; M48.02 Spinal stenosis, cervical region; M48.061 Spinal stenosis, lumbar region without neurogenic claudication; Z91.040 Latex allergy status
CPT/HCPCS: 71010; 96372; 99283

== ENCOUNTER 2017-07-07 07:38 | Emergency (ER) | payer OTHER ==
[~2017-07-07] VITALS: Ht 157.5 cm; Wt 71.7 kg
[~2017-07-07 07:38] MED LIST changes: +NKM; +ZITHROMAX TRI-500 MG ORAL
[2017-07-07 08:00] VITALS: BP 117/76
[2017-07-07] MEDS ORDERED: Albuterol/Ipratropium 3ml neb HHN ONE (08:15)
[2017-07-07] MEDS ORDERED: ALBUTEROL SULF8.5 GM INH (08:29)
[2017-07-07] MEDS ORDERED: ADULT WAL-100 MG/5 M ORAL (08:53)
[2017-07-07 08:55] VITALS: BP 108/73
[2017-07-07] MEDS ORDERED: ZITHROMAX250 MG ORAL (11:41)
--- NOTE | 2017-07-08 20:18 | Cardiology Report ---
APPROVED REPORT EKG Measurement Heart [id number] Normal sinus rhythm Low voltage QRS Nonspecific T wave abnormality Abnormal ECG
--- NOTE | 2017-07-12 22:58 | Emergency Room Report ---
History of Present Illness General Chief Complaint: Flu Like Symptoms Source: Patient, Medical Record Present Illness HPI Patient is a 61-year-old female brought in by self after increased cough and difficulty breathing. Patient reported having nonproductive cough. She had prior history of chronic degenerative changes to her spine. The patient recently been seen and discharged after x-ray imaging which showed questionable pneumonia. Patient was noted to have no fever. She had reportedly had increased pain to her neck and low back. She denies any leg pain or swelling. Allergies: Coded Allergies: LATEX (Verified Allergy, Unknown, 11/17/16) Patient History Past Medical History: see triage record Last Menstrual Period: menopause Reviewed Nursing Documentation: PMH: Agreed, PSxH: Agreed Nursing Documentation-PMH Past Medical History: No History, Except For Hx Hypertension: Yes - cervical lumbar stenosis, degenerative bone disease Hx Asthma: Yes Hx COPD: No - PNA Hx Diabetes: Yes Hx Gastrointestinal Problems: Yes - diverticulitis Hx Neurological Problems: Yes - chronic back pain Review of Systems All Other Systems: negative except mentioned in HPI Physical Exam Vital Signs Date Time Temp Pulse Resp B/P (MAP) Pulse Ox O2 Delivery O2 Flow Rate FiO2 07/07/17 07:43 98.4 84 18 124/79 99 Room Air 07/07/17 08:35 21 07/07/17 08:45 21.0 General Appearance: well appearing, no apparent distress, alert, GCS 15, non- toxic Head: normocephalic, atraumatic ENT: hearing grossly normal, normal voice Neck: full range of motion, supple Respiratory: no respiratory distress, speaking full sentences Musculoskeletal: no calf tenderness Neurologic: normal gait Psychiatric: mood/affect normal Skin: no rash Medical Decision Making Diagnostic Impression: Primary Impression: Opiate dependence Additional Impression: Bronchitis ER Course Patient presented for cough. Differential diagnosis included but was not limited to bronchitis, pneumonia, pulmonary embolism, pericarditis, asthma, foreign body. Patient's benign exam and does not appear to require any further imaging or laboratory testing at this time. The patient was noted to have recently had x- rays of her chest. The patient does not appear to have pneumonia on chest x- ray by my read. Patient was noted to have symptoms consistent with a viral bronchitis. She was given prescription for inhaler as well as cough medication. The patient is advised to follow up with primary care doctor in 1- 2 days. Patient is advised to return if any worsening condition or if any changes in status that are concerning. Last Vital Signs Date Time Temp Pulse Resp B/P (MAP) Pulse Ox O2 Delivery O2 Flow Rate FiO2 07/07/17 08:55 67 13 108/73 98 Room Air 07/07/17 08:45 21.0 21 07/07/17 08:00 97.9 Status: improved Disposition: HOME, SELF-CARE Condition: Stable Scripts Guaifenesin* (ADULT WAL-TUSSIN*) 100 Mg/5 Ml Liquid 10 ML ORAL Q4H, #120 ML Prov: Maicol Hebert 07/07/17 Albuterol Sulfate* (ALBUTEROL SULFATE MDI*) 8.5 Gm Hfa.aer.ad 2 PUFF INH Q4H Y for cough/wheezing, #1 EA 0 Refills Prov: Maicol Hebert 07/07/17 Patient Instructions: Acute Bronchitis Maicol Hebert Jul 12, 2017 22:58
== END 2017-07-07 08:55 | disposition home or self-care (01) ==
LOC: EMR 07:55
DX: F11.20 Opioid dependence, uncomplicated (principal); J20.9 Acute bronchitis, unspecified; Z91.040 Latex allergy status; I10 Essential (primary) hypertension; M48.02 Spinal stenosis, cervical region; M48.061 Spinal stenosis, lumbar region without neurogenic claudication; E11.9 Type 2 diabetes mellitus without complications; K57.90 Diverticulosis of intestine, part unspecified, without perforation or abscess without bleeding
CPT/HCPCS: 93005; 94640; 94664; 99284; J7620

== ENCOUNTER 2017-09-15 02:17 | Emergency (ER) | payer OTHER ==
[~2017-09-15] VITALS: Ht 154.9 cm; Wt 71.7 kg
[~2017-09-15 02:17] MED LIST changes: +ADULT WAL-100 MG/5 M ORAL; +ALBUTEROL SULF8.5 GM INH; +ZITHROMAX250 MG ORAL
--- NOTE | 2017-09-15 02:44 | Emergency Room Report ---
History of Present Illness General Chief Complaint: Chest Pain Source: Patient Present Illness HPI This is a 62-year-old female with history of chronic pain. She is taking [place] for her. She said she hasn't take any pain medication for 5 days. She presents with 2 complaints her first complaint urine incontinence. Been ongoing for last 3 days. No fever or chills. Has urinary urgency but unable to hold her bladder. No fever or chills but no nausea no vomiting. No abdominal pain. Second complaint is chest pressure. His been ongoing for the last 5 days straight. No radiation. No exertional component. Similar symptom in the past. She said she did not take her pain medication because of the pressure. No other complaint. Allergies: Coded Allergies: LATEX (Verified Allergy, Unknown, 11/17/16) Patient History Past Medical History: see triage record, old chart reviewed Past Surgical History: other Pertinent Family History: none Social History: Denies: smoking Now: No Immunizations: other Reviewed Nursing Documentation: PMH: Agreed, PSxH: Agreed Nursing Documentation-PMH Hx Hypertension: Yes - Degenerative bone disease Hx Asthma: Yes Hx COPD: No - PNA Hx Diabetes: Yes Hx Gastrointestinal Problems: Yes - Diverticulitis Hx Neurological Problems: Yes - Chronic back pain Review of Systems Eye: Denies: eye pain, blurred vision ENT: Denies: ear pain, nose congestion, throat swelling Respiratory: Denies: cough, shortness of breath Cardiovascular: Reports: chest pain, Denies: palpitations Gastrointestinal: Denies: abdominal pain, diarrhea, nausea, vomiting Genitourinary: Reports: incontinence Musculoskeletal: Denies: back pain, joint pain Skin: Denies: rash Neurological: Denies: headache, numbness Endocrine: Denies: increased thirst, increased urine Hematologic/Lymphatic: Denies: easy bruising All Other Systems: negative except mentioned in HPI Physical Exam Vital Signs Date Time Temp Pulse Resp B/P (MAP) Pulse Ox O2 Delivery O2 Flow Rate FiO2 09/15/17 02:21 98.2 81 16 114/77 99 Room Air vitals normal Sp02 EP Interpretation: reviewed, normal General Appearance: well appearing, no apparent distress, alert Head: normocephalic, atraumatic Eyes: bilateral eye PERRL, bilateral eye EOMI ENT: hearing grossly normal, normal pharynx Neck: full range of motion, supple, no meningismus Respiratory: chest non-tender, lungs clear, normal breath sounds Cardiovascular #1: regular rate, rhythm, no murmur Gastrointestinal: normal bowel sounds, non tender, no mass, no organomegaly, no bruit, non-distended Musculoskeletal: back normal, gait/station normal, normal range of motion Psychiatric: mood/affect normal Skin: warm/dry Medical Decision Making Diagnostic Impression: Primary Impression: Chest pain Qualified Codes: R07.9 - Chest pain, unspecified Additional Impression: Incontinence of urine in female ER Course Patient presents with incontinence of urine. This may be a stress incontinence. No evidence of UTI. No evidence of infection. Also complaining of chest pain his been constant for 5 days. Troponin negative. EKG unremarkable. We'll discharge home. On the [facility] system, she gets monthly prescription for 100 tablets of [place] #10 mg. Lab Results Impression normal EKG Diagnostic Results Rate: normal Rhythm: NSR ST Segments: no acute changes ASA given to the pt in ED: Yes Rhythm Strip Diag. Results Rhythm Strip Time: 04:09 EP Interpretation: yes Rate: 68 Chest X-Ray Diagnostic Results Chest X-Ray Diagnostic Results : Chest X-Ray Ordered: Yes # of Views/Limited/Complete: 1 View Indication: Chest Pain EP Interpretation: Yes Interpretation: no consolidation, no effusion, no pneumothorax, no acute cardiopulmonary disease Impression: No acute disease Electronically Signed by: Jean Garcia MD Last Vital Signs Date Time Temp Pulse Resp B/P (MAP) Pulse Ox O2 Delivery O2 Flow Rate FiO2 09/15/17 02:21 98.2 81 16 114/77 99 Room Air Status: improved Disposition: HOME, SELF-CARE Condition: Stable Patient Instructions: Nonspecific Chest Pain Additional Instructions: followup with your DrAshely in 7 days. Return if symptom worsen. JEAN GARCIA M.D. Sep 15, 2017 02:44
[2017-09-15] MEDS ORDERED: Aspirin Baby 81mg ORAL ONE (02:45)
[2017-09-15 03:20] LABS: BILIRUBIN, URINE NEGATIVE (NEGATIVE); COLOR,URINE PALE YELLOW; GLUCOSE, URINE (UA) NEGATIVE (NEGATIVE); KETONES,URINE NEGATIVE (NEGATIVE); LEUKOCYTE ESTERASE ,URINE NEGATIVE (NEGATIVE); NITRITE,URINE NEGATIVE (NEGATIVE); PH,URINE 5 (4.5-8.0); PROTEIN,URINE NEGATIVE (NEGATIVE); UROBILINOGEN,URINE NORMAL MG/DL (0.0-1.0)
[2017-09-15 03:23] LABS: APPEARANCE,URINE CLEAR
[2017-09-15 04:12] VITALS: BP 103/75
[2017-09-15 04:26] VITALS: BP 103/75
--- NOTE | 2017-09-15 11:24 | Diagnostic Imaging Report ---
Indication: Chest pain Technique: XRAY Chest 1v Comparison: 07/07/2017 Findings: Heart size and mediastinal contours are within normal limits given technique. There is no focal consolidation, pneumothorax or pleural effusion. Degenerative changes noted in the spine. Osseous structures demonstrate no acute abnormality. Impression: No radiographic evidence of acute cardiopulmonary disease.
--- NOTE | 2017-09-16 12:26 | Cardiology Report ---
APPROVED REPORT EKG Measurement Heart [id number] Sinus rhythm with occasional premature ventricular complexes Otherwise normal ECG
== END 2017-09-15 04:26 | disposition home or self-care (01) ==
LOC: EMR 02:43
DX: R07.9 Chest pain, unspecified (principal); R32 Unspecified urinary incontinence; G89.29 Other chronic pain; M54.9 Dorsalgia, unspecified; E11.9 Type 2 diabetes mellitus without complications; J44.9 Chronic obstructive pulmonary disease, unspecified; Z91.040 Latex allergy status; Z87.19 Personal history of other diseases of the digestive system
CPT/HCPCS: 71045; 80307; 81003; 84484; 93005; 99284

== ENCOUNTER 2017-09-27 13:27 | Emergency (ER) | payer OTHER ==
[~2017-09-27] VITALS: Ht 154.9 cm; Wt 71.7 kg
[2017-09-27 14:00] VITALS: BP 120/76
--- NOTE | 2017-09-27 14:31 | Emergency Room Report ---
History of Present Illness General Chief Complaint: General Complaint Source: Patient, Medical Record Present Illness HPI 62 yo female patient presents to ER requesting abx prescription. Patient reports she was recently seen by dentist and provided with antibiotic that she was not able to fill at the pharmacy. Patient reports abx was for gum infection. Patient also complains of cough for the "past few days". Patient denies fever, sore throat, difficulty swallowing, Patient denies chest pain, SOB, nausea, vomiting, diarrhea. Patient requesting cough syrup. Allergies: Coded Allergies: LATEX (Verified Allergy, Unknown, 11/17/16) Patient History Past Medical History: see triage record Last Menstrual Period: 1996 Reviewed Nursing Documentation: PMH: Agreed, PSxH: Agreed Nursing Documentation-PMH Past Medical History: No History, Except For Hx Hypertension: Yes - Degenerative bone disease Hx Asthma: Yes Hx COPD: No - PNA Hx Diabetes: Yes Hx Gastrointestinal Problems: Yes - Diverticulitis Hx Neurological Problems: Yes - Chronic back pain Review of Systems All Other Systems: negative except mentioned in HPI Physical Exam Vital Signs Date Time Temp Pulse Resp B/P (MAP) Pulse Ox O2 Delivery O2 Flow Rate FiO2 09/27/17 13:42 98.4 74 18 120/76 98 Room Air Sp02 EP Interpretation: reviewed, normal General Appearance: no apparent distress, alert, GCS 15, non-toxic Head: normocephalic, atraumatic Eyes: bilateral eye normal inspection, bilateral eye PERRL ENT: normal pharynx, normal voice, TMs + canals normal, uvula midline, moist mucus membranes, other - right lower gum: tooth decay, inflammmation of gums, no abscess, no pus draining, no blood Neck: full range of motion Respiratory: chest non-tender, lungs clear, normal breath sounds, speaking full sentences Cardiovascular #1: regular rate, rhythm, no edema Neurologic: alert, oriented x3, responsive, motor strength/tone normal, sensory intact, speech normal Psychiatric: judgement/insight normal, mood/affect normal Skin: normal color, no rash, warm/dry, well hydrated Medical Decision Making PA Attestation Dr. Hebert is my supervising Physician whom patient management has been discussed with. Diagnostic Impression: Primary Impression: Cough Additional Impressions: Tooth decay Gum inflammation ER Course Pt presents to ED c/o cough and requesting prescription for antibiotics. DDX considered but are not limited to influenza, viral URI, strep throat, rhinitis, sinusitis, gingivitis. VITAL SIGNS are within normal range for patient, patient is afebrile ORDERS: none required at this time, diagnosis is clinical ED COURSE Informed patient that not able to fill antibiotic prescription at this time. Informed patient she will need to follow-up with dentist and primary care provider for antibiotic prescription. Discussed options with patient and Dr. Hebert, agreed to provide patient with shot of penicillin G currently in ER. Informed patient that this will not take the place of the antibiotic prescription and she will still need to followup with dentist and PCP. Patient expressed understanding and agreed to treatment. Patient requesting Promethazine with codeine syrup for cough; states that "no other cough syrup" has been able to alleviate her symptoms. Patient did not want prescription for promethazine hcl cough syrup. Discussed with patient use of codeine medication. Provided rx for promethazine with codeine following agreement with patient that she understands proper use and potential side effects of medication use and agrees to followup with primary care provider for further treatment. [facility] report shows no recent promethazine with codeine prescriptions were filled. Rx given for Motrin/Ibuprofen for fever/pain. Patient to take medications as instructed At this time pt is stable for d/c to home. Will provide with patient care instructions and any necessary prescriptions. Care plan and follow-up instructions provided. Patient instructed to follow-up with primary care provider in 3 - 5 days. Patient questions asked and answered. ER precautions given. Patient instructed to return to ER immediately for any new or worsening of symptoms including but not limited to increasing SOB, persistent fever. Last Vital Signs Date Time Temp Pulse Resp B/P (MAP) Pulse Ox O2 Delivery O2 Flow Rate FiO2 09/27/17 14:00 98.4 18 120/76 98 Room Air 09/27/17 13:42 74 Disposition: HOME, SELF-CARE Condition: Stable Scripts Codeine/Promethazine Hcl* (PROMETHAZINE-CODEINE SYRUP*) 118 Ml Syrup 5 ML ORAL Q6H Y for For Cough for 7 Days, ML 0 Refills Prov: Henrry Hdz P.A. 09/27/17 Ibuprofen* (MOTRIN*) 600 Mg Tablet 600 MG ORAL Q8H Y for For Pain, #30 TAB 0 Refills Prov: Henrry Hdz Anish 09/27/17 Referrals: [facility],REFERRING (PCP) Additional Instructions: Followup with primary care provider in 3 -5 days. Followup with dentist in 3-5 days. Take medications as directed. Patient questions asked and answered. ER precautions given, patient instructed to return to ER immediately for any new or worsening of symptoms. Henrry Hdz Sep 27, 2017 14:31
[2017-09-27] MEDS ORDERED: AMOXICILLIN500 MG ORAL (14:39)
[2017-09-27] MEDS ORDERED: PROMETHAZI6.25 MG/1 ORAL (14:39)
[2017-09-27] MEDS ORDERED: IBUPROFEN600 MG ORAL (14:39)
[2017-09-27] MEDS ORDERED: Bicillin LA 1.2 Million Units Syr IM ONE (14:45)
[2017-09-27] MEDS ORDERED: PROMETHAZINE-C118 M1 ORAL (15:13)
[2017-09-27 15:31] VITALS: BP 120/76
== END 2017-09-27 15:31 | disposition home or self-care (01) ==
LOC: EMR 14:03
DX: R05 Cough (principal); K02.9 Dental caries, unspecified; K06.9 Disorder of gingiva and edentulous alveolar ridge, unspecified; E11.9 Type 2 diabetes mellitus without complications; I10 Essential (primary) hypertension; Z91.040 Latex allergy status; J45.909 Unspecified asthma, uncomplicated; Z87.19 Personal history of other diseases of the digestive system
CPT/HCPCS: 96372; 99284

== ENCOUNTER 2017-10-30 01:05 | Emergency (ER) | payer OTHER ==
[~2017-10-30] VITALS: Ht 152.4 cm; Wt 72.6 kg
[~2017-10-30 01:05] MED LIST changes: +AMOXICILLIN500 MG ORAL; +PROMETHAZI6.25 MG/1 ORAL
[2017-10-30] MEDS ORDERED: NORCO 10-325 T1 EACH ORAL (01:19)
[2017-10-30] MEDS ORDERED: GABAPENTIN800 MG ORAL (01:19)
[2017-10-30] MEDS ORDERED: BISACODYL5 MG ORAL (01:19)
--- NOTE | 2017-10-30 01:52 | Emergency Room Report ---
History of Present Illness General Chief Complaint: Female Urogenital Problems Source: Patient, Medical Record Present Illness HPI Is a 62-year-old female with history of chronic pain. She also has history had tract infection. She presents with chief complaint of dysuria and frequency. No nausea no vomiting. Been ongoing for about a week. Also with stress incontinence of his urine. No fever or chills. Similar symptoms in the past. Allergies: Coded Allergies: LATEX (Verified Allergy, Unknown, 11/17/16) Patient History Past Medical History: see triage record, old chart reviewed Past Surgical History: other Pertinent Family History: none Social History: Denies: smoking Now: No Immunizations: other Reviewed Nursing Documentation: PMH: Agreed, PSxH: Agreed Nursing Documentation-PMH Hx Asthma: Yes Hx COPD: No - PNA Hx Diabetes: Yes Hx Gastrointestinal Problems: Yes - Diverticulitis Hx Neurological Problems: Yes - Chronic back pain Review of Systems Eye: Denies: eye pain, blurred vision ENT: Denies: ear pain, nose congestion, throat swelling Respiratory: Denies: cough, shortness of breath Cardiovascular: Denies: chest pain, palpitations Gastrointestinal: Denies: abdominal pain, diarrhea, nausea, vomiting Genitourinary: Reports: dysuria, urgency Musculoskeletal: Denies: back pain, joint pain Skin: Denies: rash Neurological: Denies: headache, numbness Endocrine: Denies: increased thirst, increased urine Hematologic/Lymphatic: Denies: easy bruising All Other Systems: negative except mentioned in HPI Physical Exam Vital Signs Date Time Temp Pulse Resp B/P (MAP) Pulse Ox O2 Delivery O2 Flow Rate FiO2 10/30/17 01:12 98.3 89 14 112/78 96 Room Air 98.2 vitals normal Sp02 EP Interpretation: reviewed, normal General Appearance: well appearing, no apparent distress, alert Head: normocephalic, atraumatic Eyes: bilateral eye PERRL, bilateral eye EOMI ENT: hearing grossly normal, normal pharynx Neck: full range of motion, supple, no meningismus Respiratory: chest non-tender, lungs clear, normal breath sounds Cardiovascular #1: regular rate, rhythm, no murmur Gastrointestinal: normal bowel sounds, non tender, no mass, no organomegaly, no bruit, non-distended Musculoskeletal: back normal, gait/station normal, normal range of motion Psychiatric: mood/affect normal Skin: warm/dry Medical Decision Making Diagnostic Impression: Primary Impression: UTI symptoms Additional Impression: Diabetes mellitus Qualified Codes: E11.9 - Type 2 diabetes mellitus without complications ER Course Patient with chronic vaginal and UTI symptom. She has previous UTI. We'll discharge on antibiotics. She asked for Diflucan also. Last Vital Signs Date Time Temp Pulse Resp B/P (MAP) Pulse Ox O2 Delivery O2 Flow Rate FiO2 10/30/17 01:12 98.3 89 14 112/78 96 Room Air 98.2 Status: improved Disposition: HOME, SELF-CARE Condition: Stable Scripts Glyburide (GLYBURIDE) 5 Mg Tablet 5 MG PO DAILY, #30 TAB Prov: STANFORD COOPER M.D. 10/30/17 Fluconazole* (DIFLUCAN*) 100 Mg Tablet 100 MG ORAL DAILY, #1 TAB Prov: STANFORD COOPER M.D. 10/30/17 Nitrofurantoin Monohyd/M-Cryst (Nitrofurantoin Fentress-Mcr 100 mg) 100 Mg Capsule 100 MG ORAL Q12H, #14 CAP Prov: STANFORD COOPER M.D. 10/30/17 Patient Instructions: Urinary Tract Infection Additional Instructions: Followup with your Dr. in 7 days. Take your diabetes medication. Return if symptom worsen. STANFORD COOPER M.D. Oct 30, 2017 01:52
[2017-10-30 02:19] LABS: APPEARANCE,URINE CLEAR; BILIRUBIN, URINE NEGATIVE (NEGATIVE); COLOR,URINE PALE YELLOW; GLUCOSE, URINE (UA) NEGATIVE (NEGATIVE); KETONES,URINE NEGATIVE (NEGATIVE); LEUKOCYTE ESTERASE ,URINE 1+ (NEGATIVE); PH,URINE 6 (4.5-8.0); PROTEIN,URINE NEGATIVE (NEGATIVE); UROBILINOGEN,URINE NORMAL MG/DL (0.0-1.0)
[2017-10-30 02:20] LABS: NITRITE,URINE NEGATIVE (NEGATIVE)
[2017-10-30 02:30] VITALS: BP 131/70
[2017-10-30] MEDS ORDERED: DIFLUCAN100 MG ORAL (02:30)
[2017-10-30] MEDS ORDERED: GLYBURIDE5 MG PO (02:30)
[2017-10-30] MEDS ORDERED: MACROBID100 MG ORAL (02:30)
[2017-10-30 02:47] VITALS: BP 112/78
== END 2017-10-30 02:45 | disposition home or self-care (01) ==
LOC: EMR 02:27
DX: N39.0 Urinary tract infection, site not specified (principal); E11.9 Type 2 diabetes mellitus without complications; Z91.040 Latex allergy status; J45.909 Unspecified asthma, uncomplicated
CPT/HCPCS: 81003; 99284

== ENCOUNTER 2017-12-10 13:55 | Emergency (ER) | payer OTHER ==
[~2017-12-10] VITALS: Ht 152.4 cm; Wt 73.0 kg
[~2017-12-10 13:55] MED LIST changes: +BISACODYL5 MG ORAL; +GABAPENTIN800 MG ORAL; +GLYBURIDE5 MG PO; +MACROBID100 MG ORAL; +NORCO 10-325 T1 EACH ORAL
[2017-12-10 14:04] VITALS: BP 120/65
--- NOTE | 2017-12-10 14:26 | Emergency Room Report ---
History of Present Illness General Chief Complaint: Headache Source: Patient, Medical Record Present Illness HPI 62-year-old female complains of dental pain involving her mandibular row along the gumline in multiple locations. She reports this has been going off and on for many months, but worse now for the last 5 days. She reports usually gets pain and then takes a course of antibiotics for dental infection and gets improvement. She has an appointment with an oral surgeon on December 26 which is 16 days from now, to have multiple teeth removed. Fevers, neck pain, blurred vision, nausea, vomiting, or any other complaints. Allergies: Coded Allergies: LATEX (Verified Allergy, Unknown, 11/17/16) Patient History Past Medical History: see triage record Last Menstrual Period: 1998 Reviewed Nursing Documentation: PMH: Agreed; PSxH: Agreed Nursing Documentation-PMH Past Medical History: No History, Except For Hx Asthma: Yes Hx COPD: No - PNA Hx Diabetes: Yes Hx Gastrointestinal Problems: Yes - Diverticulitis Hx Neurological Problems: Yes - Chronic back pain Review of Systems All Other Systems: negative except mentioned in HPI Physical Exam Vital Signs Date Time Temp Pulse Resp B/P (MAP) Pulse Ox O2 Delivery O2 Flow Rate FiO2 12/10/17 14:04 18 120/65 98 Room Air 12/10/17 14:04 87 Sp02 EP Interpretation: reviewed, normal General Appearance: no apparent distress, alert, non-toxic Head: normocephalic Eyes: bilateral eye normal inspection, bilateral eye PERRL, bilateral eye EOMI ENT: normal ENT inspection, hearing grossly normal, normal pharynx, no angioedema, normal voice, moist mucus membranes, other - Multiple areas of poor dentition, No gingival erythema or fluctuance, but tenderness along multiple dental caries in the mandibular teeth Neck: normal inspection, full range of motion, supple, supple/symm/no masses Respiratory: chest non-tender, lungs clear, normal breath sounds, chest symmetrical, palpation of chest normal Cardiovascular #1: normal peripheral pulses, regular rate, rhythm Cardiovascular #2: 2+ radial (R), 2+ radial (L) Gastrointestinal: normal inspection, non tender, soft, no mass, no guarding, no rebound Rectal: deferred Genitourinary: normal inspection, no CVA tenderness Musculoskeletal: back normal, gait/station normal, normal range of motion, non- tender, no calf tenderness Neurologic: alert, responsive, comp field case manager III-XII nml as tested, motor strength/tone normal, sensory intact, speech normal Psychiatric: judgement/insight normal, memory normal, mood/affect normal, no suicidal/homicidal ideation Skin: normal color, no rash, warm/dry, normal turgor Lymphatic: no adenopathy Medical Decision Making Reaction to Intervention: Improved Diagnostic Impression: Primary Impression: Dentalgia ER Course Patient with pulpitis versus early odontogenic abscess, no clinically drainable collection. Will treat for early abscess with antibiotics, ibuprofen, follow-up with oral surgeon. Last Vital Signs Date Time Temp Pulse Resp B/P (MAP) Pulse Ox O2 Delivery O2 Flow Rate FiO2 12/10/17 14:04 99.1 87 18 120/65 98 Room Air 99.1 Disposition: HOME, SELF-CARE Condition: Stable BALJEET CARRASCO M.D Dec 10, 2017 14:26
[2017-12-10] MEDS ORDERED: PENICILLIN V P500 MG PO (14:29)
[2017-12-10] MEDS ORDERED: IBUPROFEN600 MG ORAL (14:29)
[2017-12-10] MEDS ORDERED: ZOFRAN ODT4 MG ORAL (14:30)
[2017-12-10] MEDS ORDERED: Ketorolac 30mg Inj IM ONE (14:30)
[2017-12-10 15:05] VITALS: BP 120/65
== END 2017-12-10 15:07 | disposition home or self-care (01) ==
LOC: EMR 14:25
DX: K08.89 Other specified disorders of teeth and supporting structures (principal); R68.84 Jaw pain; Z91.040 Latex allergy status; E11.9 Type 2 diabetes mellitus without complications; K57.90 Diverticulosis of intestine, part unspecified, without perforation or abscess without bleeding
CPT/HCPCS: 96372; 99283; J1885

== ENCOUNTER 2018-01-13 14:49 | Emergency (ER) | payer OTHER ==
[~2018-01-13] VITALS: Ht 154.9 cm; Wt 72.1 kg
[~2018-01-13 14:49] MED LIST changes: +PENICILLIN V P500 MG PO
[2018-01-13 15:12] VITALS: BP 114/76
[2018-01-13 15:43] LABS: APPEARANCE,URINE CLEAR; BILIRUBIN, URINE NEGATIVE (NEGATIVE); COLOR,URINE PALE YELLOW; GLUCOSE, URINE (UA) NEGATIVE (NEGATIVE); KETONES,URINE NEGATIVE (NEGATIVE); LEUKOCYTE ESTERASE ,URINE 3+ (NEGATIVE); NITRITE,URINE NEGATIVE (NEGATIVE); PH,URINE 6 (4.5-8.0); PROTEIN,URINE 2+ (NEGATIVE); UROBILINOGEN,URINE NORMAL MG/DL (0.0-1.0)
[2018-01-13] MEDS ORDERED: Phenazopyridine 200mg tab ORAL ONE (16:00)
--- NOTE | 2018-01-13 16:02 | Emergency Room Report ---
History of Present Illness General Chief Complaint: Female Urogenital Problems Source: Patient Present Illness HPI 62-year-old female presents to the emergency department complaining of "UTI "patient reports 4 days ago she noticed strong odor and now she is having intermittent itching and burning during urination. Patient denies urinary frequency, urgency or hematuria. Patient reports recent unprotected intercourse however she denies possibility of STD. Patient denies external vaginal lesions, swollen tender lymph nodes or joint pain. She denies abdominal pain or tenderness. Denies nausea, vomiting, fevers or chills. Allergies: Coded Allergies: LATEX (Verified Allergy, Unknown, 11/17/16) Patient History Past Medical History: see triage record Past Surgical History: none Pertinent Family History: none Now: No Reviewed Nursing Documentation: PMH: Agreed; PSxH: Agreed Nursing Documentation-PMH Past Medical History: No History, Except For Hx Asthma: Yes Hx COPD: No - PNA Hx Diabetes: Yes Hx Gastrointestinal Problems: Yes - Diverticulitis Hx Neurological Problems: Yes - Chronic back pain Review of Systems All Other Systems: negative except mentioned in HPI Physical Exam Vital Signs Date Time Temp Pulse Resp B/P (MAP) Pulse Ox O2 Delivery O2 Flow Rate FiO2 01/13/18 15:02 98.2 68 18 110/76 96 Room Air 98.2 Medical Decision Making PA Attestation Dr. Hebert is my supervising Physician whom patient management has been discussed with. Diagnostic Impression: Primary Impression: Vaginitis Qualified Codes: N76.0 - Acute vaginitis ER Course 62-year-old female presents to the emergency department complaining of "UTI "patient reports 4 days ago she noticed strong odor and now she is having intermittent itching and burning during urination. Patient denies urinary frequency, urgency or hematuria. Patient reports recent unprotected intercourse however she denies possibility of STD. Patient denies external vaginal lesions, swollen tender lymph nodes or joint pain. She denies abdominal pain or tenderness. Denies nausea, vomiting, fevers or chills. Ddx considered but are not limited to UTi , Pyelo, STI, Stone, Cystitis, vaginal laceration, vaginitis. Vital signs: are WNL, pt. is afebrile H& PE are most consistent with: Vaginitis ORDERS: - UA labs are attached - Unremarkable ED INTERVENTIONS: -pyridium PO DISCHARGE: At this time pt. is stable for d/c to home. Will provide printed patient care instructions, and any necessary prescriptions. Care plan and follow up instructions have been discussed with the patient prior to discharge. discussed with the patient prior to discharge. Labs Test 01/13/18 15:19 Urine Color Pale yellow Urine Appearance Clear Urine pH 6 (4.5-8.0) Urine Specific [place] 1.010 (1.005-1.035) Urine Protein 2+ (NEGATIVE) Urine Glucose (UA) Negative (NEGATIVE) Urine Ketones Negative (NEGATIVE) Urine Occult Blood 5+ (NEGATIVE) Urine Nitrite Negative (NEGATIVE) Urine Bilirubin Negative (NEGATIVE) Urine Urobilinogen Normal MG/DL (0.0-1.0) Urine Leukocyte Esterase 3+ (NEGATIVE) Urine RBC 5-10 /HPF (0 - 2) Urine WBC 2-4 /HPF (0 - 2) Urine Squamous Epithelial Cells Few /LPF (NONE/OCC) Urine Amorphous Sediment Few /LPF (NONE) Urine Bacteria Few /HPF (NONE) Last Vital Signs Date Time Temp Pulse Resp B/P (MAP) Pulse Ox O2 Delivery O2 Flow Rate FiO2 01/13/18 15:12 98.2 78 18 114/76 99 Room Air 98.2 Disposition: HOME, SELF-CARE Condition: Stable Scripts Miconazole Nitrate (Monistat 3) 15 Gm Crm.pf.wade 5 GM VG QHS, #15 GM Prov: Jolly Belle.A. 01/13/18 Phenazopyridine Hcl* (PYRIDIUM*) 200 Mg Tablet 200 MG ORAL THREE TIMES A DAY, #9 TAB 0 Refills Prov: Jolly Belle.A. 01/13/18 Fluconazole (FLUCONAZOLE) 100 Mg Tablet 100 MG ORAL DAILY, #3 TAB 0 Refills Prov: Jolly Belle P.A. 01/13/18 Metronidazole* (FLAGYL*) 500 Mg Tablet 500 MG ORAL BID, #14 TAB 0 Refills Prov: Jolly Belle.A. 01/13/18 Patient Instructions: Vaginitis Additional Instructions: Take medications as directed. Follow up with a Primary Care Provider in 3-5 days, even if your symptoms have resolved. --Please review list of primary care clinics, if you do not already have a primary care provider Return sooner to ED if new symptoms occur, or current symptoms become worse. - Please note that this Emergency Department Report was dictated using Dragon consumer product advisor technology software, occasionally this can lead to erroneous entry secondary to interpretation by the dictation equipment. Jolly Belle January 13, 2018 16:02
[2018-01-13] MEDS ORDERED: PHENAZOPYRIDIN200 MG ORAL (16:05)
[2018-01-13] MEDS ORDERED: FLUCONAZOLE100 MG ORAL (16:05)
[2018-01-13] MEDS ORDERED: METRONIDAZOLE500 MG ORAL (16:05)
[2018-01-13 16:15] VITALS: BP 118/83
[2018-01-13] MEDS ORDERED: MONISTAT 35 GM VG (16:22)
== END 2018-01-13 16:15 | disposition home or self-care (01) ==
LOC: EMR 16:15
DX: N76.0 Acute vaginitis (principal); J45.909 Unspecified asthma, uncomplicated; E11.9 Type 2 diabetes mellitus without complications; K57.90 Diverticulosis of intestine, part unspecified, without perforation or abscess without bleeding; G89.29 Other chronic pain; M54.9 Dorsalgia, unspecified; Z91.040 Latex allergy status
CPT/HCPCS: 81003; 99284

== ENCOUNTER 2018-10-23 19:44 | Inpatient (IN) | payer OTHER ==
[~2018-10-23] VITALS: Ht 160 cm; Wt 77.1 kg
[~2018-10-23 19:44] MED LIST changes: +FLUCONAZOLE100 MG ORAL; +MONISTAT 35 GM VG; +PHENAZOPYRIDIN200 MG ORAL
--- NOTE | 2018-10-23 20:20 | NUR ---
ED Nurse Note: pt walked in c/o urinary frequency and back pain for couple of days, pt denies n/v/d. pt states she had hx kidney/bladder infection. urine sample obtained and sent to lab. pt AA&ox4 gcs=15, skin warm and dry, resp even and unlabored on RA, -n/v/d, ambulates w/ steady gait, will cont monitor. vss.
[2018-10-23 20:45] VITALS: BP 128/80
[2018-10-23 20:49] LABS: APPEARANCE,URINE CLEAR; BILIRUBIN, URINE NEGATIVE (NEGATIVE); COLOR,URINE PALE YELLOW; GLUCOSE, URINE (UA) NEGATIVE (NEGATIVE); KETONES,URINE NEGATIVE (NEGATIVE); LEUKOCYTE ESTERASE ,URINE 2+ (NEGATIVE); NITRITE,URINE POSITIVE (NEGATIVE); PH,URINE 5 (4.5-8.0); PROTEIN,URINE NEGATIVE (NEGATIVE); UROBILINOGEN,URINE NORMAL MG/DL (0.0-1.0)
[2018-10-23 21:05] LABS: EOSINOPHILS % (AUTO) 1.4 % (0.0-3.0); HEMATOCRIT 42.4 % (37.0-47.0); HEMOGLOBIN 14.2 G/DL (12.0-16.0); LYMPHOCYTES % (AUTO) 34.4 % (20.0-45.0); MEAN CORPUSCULAR VOLUME 86 FL (80-99); MONOCYTES % (AUTO) 6.1 % (1.0-10.0); NEUTROPHILS % (AUTO) 57.2 % (45.0-75.0); PLATELET COUNT 230 K/UL (150-450); RED BLOOD COUNT 4.92 M/UL (4.20-5.40); WHITE BLOOD COUNT 12.2 K/UL (4.8-10.8)
[2018-10-23 21:15] LABS: ANION GAP 6 mmol/L (5-15); BLOOD UREA NITROGEN 14 mg/dL (7-18); CALCIUM 8.9 MG/DL (8.5-10.1); CARBON DIOXIDE 30 MMOL/L (21-32); CHLORIDE 106 MMOL/L (98-107); CREATININE 1.1 MG/DL (0.55-1.30); SODIUM 142 MMOL/L (136-145)
[2018-10-23 21:20] LABS: ALANINE AMINOTRANSFERASE 14 U/L (12-78); ALBUMIN 3.4 G/DL (3.4-5.0); ALKALINE PHOSPHATASE 80 U/L (46-116); ASPARTATE AMINO TRANSFERASE 12 U/L (15-37); BILIRUBIN,TOTAL 0.3 MG/DL (0.2-1.0)
--- NOTE | 2018-10-23 21:28 | Emergency Room Report ---
History of Present Illness General Chief Complaint: Female Urogenital Problems Source: Patient Present Illness HPI The patient complains of pain in her lower abdomen and a burning sensation when she urinates for the past week. She states she has a history of urinary tract infection. She states that she took an qjkz-wva-cgasszf test and it was positive for urinary tract infection. She denies nausea or vomiting. She has fever or chills. She denies chest pain or shortness of breath. She has no other complaints. Allergies: Coded Allergies: LATEX (Verified Allergy, Unknown, 11/17/16) Patient History Past Medical History: see triage record Social History: Denies: smoking, alcohol use, drug use Now: No Reviewed Nursing Documentation: PMH: Agreed; PSxH: Agreed Nursing Documentation-PMH Hx Asthma: Yes Hx COPD: No - PNA Hx Diabetes: Yes Hx Gastrointestinal Problems: Yes - Diverticulitis Hx Neurological Problems: Yes - Chronic back pain Review of Systems All Other Systems: negative except mentioned in HPI Physical Exam Vital Signs Date Time Temp Pulse Resp B/P (MAP) Pulse Ox O2 Delivery O2 Flow Rate FiO2 10/23/18 20:15 98.2 91 18 135/103 96 Room Air Sp02 EP Interpretation: reviewed, normal General Appearance: no apparent distress, alert, GCS 15, non-toxic Head: normocephalic, atraumatic Eyes: bilateral eye normal inspection, bilateral eye PERRL ENT: hearing grossly normal, normal pharynx, no angioedema, normal voice Neck: full range of motion, supple/symm/no masses Respiratory: chest non-tender, lungs clear, normal breath sounds, no respiratory distress, no retraction, no accessory muscle use, speaking full sentences Cardiovascular #1: regular rate, rhythm, no edema Cardiovascular #2: 2+ carotid (R), 2+ carotid (L), 2+ radial (R), 2+ radial (L) , 2+ femoral (R), 2+ femoral (L), 2+ dorsalis pedis (R), 2+ dorsalis pedis (L) Gastrointestinal: normal bowel sounds, soft, non-distended, no guarding, no rebound, tenderness - TTP in the suprapubic region Rectal: deferred Musculoskeletal: back normal, gait/station normal, normal range of motion, non- tender Neurologic: alert, oriented x3, responsive, motor strength/tone normal, sensory intact, speech normal Psychiatric: judgement/insight normal, memory normal, mood/affect normal, no suicidal/homicidal ideation Skin: normal color, no rash, warm/dry, well hydrated Medical Decision Making Diagnostic Impression: Primary Impression: UTI (urinary tract infection) ER Course Patient has a clinical presentation consistent with simple UTI. There are no systemic symptoms to include fever, chills, sweating, nausea or vomiting that would make me concerned for pyelonephritis. Overall this patient's evaluation is benign. Patient is stable for outpatient oral antibiotic therapy. The patient was given return precautions and followup instructions. Laboratory Tests Test 10/23/18 20:30 10/23/18 20:50 Urine Color Pale yellow Urine Appearance Clear Urine pH 5 (4.5-8.0) Urine Specific [place] 1.020 (1.005-1.035) Urine Protein Negative (NEGATIVE) Urine Glucose (UA) Negative (NEGATIVE) Urine Ketones Negative (NEGATIVE) Urine Blood Negative (NEGATIVE) Urine Nitrite Positive (NEGATIVE) H Urine Bilirubin Negative (NEGATIVE) Urine Urobilinogen Normal MG/DL (0.0-1.0) Urine Leukocyte Esterase 2+ (NEGATIVE) H Urine RBC 0-2 /HPF (0 - 2) Urine WBC 10-15 /HPF (0 - 2) H Urine Squamous Epithelial Cells Occasional /LPF Urine Bacteria Many /HPF (NONE) H White Blood Count 12.2 K/UL (4.8-10.8) H Red Blood Count 4.92 M/UL (4.20-5.40) Hemoglobin 14.2 G/DL (12.0-16.0) Hematocrit 42.4 % (37.0-47.0) Mean Corpuscular Volume 86 FL (80-99) Mean Corpuscular Hemoglobin 28.9 PG (27.0-31.0) Mean Corpuscular Hemoglobin Concent 33.5 G/DL (32.0-36.0) Red Cell Distribution Width 12.0 % (11.6-14.8) Platelet Count 230 K/UL (150-450) Mean Platelet Volume 8.4 FL (6.5-10.1) Neutrophils (%) (Auto) 57.2 % (45.0-75.0) Lymphocytes (%) (Auto) 34.4 % (20.0-45.0) Monocytes (%) (Auto) 6.1 % (1.0-10.0) Eosinophils (%) (Auto) 1.4 % (0.0-3.0) Basophils (%) (Auto) 1.0 % (0.0-2.0) Sodium Level 142 MMOL/L (136-145) Potassium Level 4.0 MMOL/L (3.5-5.1) Chloride Level 106 MMOL/L (98-107) Carbon Dioxide Level 30 MMOL/L (21-32) Anion Gap 6 mmol/L (5-15) Blood Urea Nitrogen 14 mg/dL (7-18) Creatinine 1.1 MG/DL (0.55-1.30) Estimate Glomerular Filtration Rate > 60 mL/min (>60) Glucose Level 98 MG/DL (74-106) Calcium Level 8.9 MG/DL (8.5-10.1) Total Bilirubin 0.3 MG/DL (0.2-1.0) Aspartate Amino Transferase (AST) 12 U/L (15-37) L Alanine Aminotransferase (ALT) 14 U/L (12-78) Alkaline Phosphatase 80 U/L (46-116) Total Protein 6.9 G/DL (6.4-8.2) Albumin 3.4 G/DL (3.4-5.0) Globulin 3.5 g/dL Albumin/Globulin Ratio 1.0 (1.0-2.7) Last Vital Signs Date Time Temp Pulse Resp B/P (MAP) Pulse Ox O2 Delivery O2 Flow Rate FiO2 10/23/18 20:15 98.2 91 18 135/103 96 Room Air Status: improved Disposition: HOME, SELF-CARE Condition: Improved Referrals: [facility],REFERRING (PCP) Patient Instructions: Urinary Tract Infection Rosa Harrison DO Oct 23, 2018 21:28
[2018-10-23] MEDS ORDERED: cefTRIAXone 1 GM in NS 55 ML IVPB ONE (21:45)
[2018-10-23] MEDS ORDERED: Morphine Sulfate 4mg/ml Inj (IV USE ONLY) IVP ONE (21:45)
[2018-10-23] MEDS ORDERED: NITROFURANTOIN100 M2 ORAL (22:45)
[2018-10-23] MEDS ORDERED: FLUCONAZOLE100 MG ORAL (22:45)
[2018-10-23] MEDS ORDERED: Ketorolac 30mg Inj IV ONE (23:00)
[2018-10-23] MEDS ORDERED: Isovue-300 100ml vial INJ PRN (23:00)
[2018-10-24] VITALS (7 sets, daily range): BP systolic 107–137; BP diastolic 73–84
--- NOTE | 2018-10-24 00:28 | NUR ---
ED Nurse Note: report given to LASHONDA Flores and endorsed care pt vss, resp even and unlabored on RA.
--- NOTE | 2018-10-24 01:29 | NUR ---
ED Nurse Note: report given to RN Barbi, pt transferred to [place], all belongings sent with pt, vss, resp even and unlabored on RA.
--- NOTE | 2018-10-24 02:08 | NUR ---
NURSE NOTES: Recieved patient in bed, from ER, at bedside, VSS, afebrile, belongings list verified and has been accounted for. Patient is awake, alert and oriented, called MD for admitting orders.Oriented to the room, call light is within reach, bed is in low position locked and alarm is on, will continue to monitor for safety and comfort.
--- NOTE | 2018-10-24 04:21 | NUR ---
NURSE NOTES: RN called MD for admitting orders, left VM, CN is aware.
--- NOTE | 2018-10-24 06:15 | NUR ---
NURSE NOTES: RN called Nursing fountain supervisor, was suggested to try calling MD again. RN called and left a VM.
[2018-10-24] MEDS ORDERED: Morphine Sulfate 2mg/ml Inj(IV/IM USE ONLY) IVP PRN (06:30)
[2018-10-24] MEDS: Morphine Sulfate 4mg/ml Inj (IV USE ONLY) IVP PRN ×2 (07:14→20:01)
--- NOTE | 2018-10-24 07:30 | NUR ---
NURSE NOTES: Received pt from LASHONDA PRICE. Pt is alert and orient x4. pt is in RA. No SOB or acute respiratory distress noted. Pt has intact iv access LAC 20G SL. Pt is NPO as order. all needs attended, bed is locked and is in the lowest position. call light within easy reach. will continue to monitor.
--- NOTE | 2018-10-24 07:50 | NUR ---
HAND-OFF: Report given to Manuelito GALLEGO.
[2018-10-24] MEDS: Morphine Sulfate 2mg/ml Inj(IV/IM USE ONLY) IVP PRN ×2 (09:06→16:06)
[2018-10-24] MEDS: NS w/KCl 20mEq 1,000 ML IV SCH ×2 (09:10→23:06)
--- NOTE | 2018-10-24 09:53 | Diagnostic Imaging Report ---
Indication: Abdominal pain Technique: Continuous helical transaxial imaging of the abdomen and pelvis was obtained from the lung bases to the pubic symphysis during intravenous contrast administration. Coronal 2-D reformats were also obtained. Study obtained in a Siemens sensation [address] Automatic Exposure Control was utilized. Total Dose length Product (DLP): 812.[address] Dose Index Volume (CTDIvol): 16.38 mGy Comparison: 09/23/2013 Findings: Reticular densities are seen at the periphery of the right lung base. This may be due to mild fibrosis. Hiatal hernia is present. There may be thickening of the wall the distal esophagus. Consider EGD. Diverticula noted throughout the colon. In the sigmoid region there is perisigmoid soft tissue stranding consistent with the mild diverticulitis. There is a small fat-containing hernia at the level the umbilicus measuring about 4 cm transversely. The appendix is normal. Aortoiliac calcifications are present. Small nodes are seen in the retroperitoneum nonspecific. There is no abscess, free fluid or free air. Urinary bladder is unremarkable. The uterus is absent. There is no evidence of bowel obstruction. No hydronephrosis seen. There is narrowing of intervertebral discs and accompanying endplate osteophyte formation. Hypertrophied facet joints also demonstrated. IMPRESSION: Suspected acute sigmoid diverticulitis mild in degree. No abscess identified. Normal appendix Degenerative changes of the spine 4 cm umbilical hernia containing fat. Status post hysterectomy. Question of thickening of the wall the distal esophagus. Consider endoscopy. Hiatal hernia noted. Reticular densities probably scarring or mild fibrosis at the periphery of the right lung base. [facility] has communicated the most significant preliminary results to the Emergency Department. Their findings are concordant with this report. The CT scanner at [facility] is accredited by the [employer] and the scans are performed using dose optimization techniques as appropriate to a performed exam including Automatic Exposure control.
[2018-10-24] MEDS: NovoLOG Insulin Flexpen SUBQ SCH ×3 (11:30→21:00)
--- NOTE | 2018-10-24 14:55 | Consultation ---
History of Present Illness General Chief Complaint: Female Urogenital Problems Present Illness Allergies: Coded Allergies: LATEX (Verified Allergy, Unknown, 11/17/16) Medication History Scheduled Bisacodyl* (Dulcolax*), 5 MG ORAL DAILY, (Reported) Fluconazole (Fluconazole), 100 MG ORAL DAILY Fluconazole (Fluconazole), 100 MG ORAL ONCE Fluconazole* (Diflucan*), 100 MG ORAL DAILY Gabapentin* (Gabapentin*), 1,200 MG ORAL THREE TIMES A DAY, (Reported) Glyburide (Glyburide), 5 MG PO DAILY Metronidazole* (Flagyl*), 500 MG ORAL BID Miconazole Nitrate (Monistat 3), 5 GM VG QHS Nitrofurantoin Monohyd/M-Cryst (Nitrofurantoin [place]-Mcr 100 mg), 100 MG ORAL Q12H Nitrofurantoin Monohyd/M-Cryst* (Macrobid 100 Mg*), 100 MG ORAL EVERY 12 HOURS Penicillin V Potassium* (Penvk*), 500 MG PO Q6H Phenazopyridine Hcl* (Pyridium*), 200 MG ORAL THREE TIMES A DAY Scheduled PRN Amitriptyline HCl (Elavil*), 50 MG PO QHS PRN, (Reported) Codeine/Promethazine Hcl* (Promethazine-Codeine Syrup*), 5 ML ORAL Q6H PRN for For Cough Hydrocodone Bit/Acetaminophen 10-325* ([place] 10-325*), 1 TAB ORAL Q4H PRN for For Pain, (Reported) Ibuprofen* (Motrin*), 600 MG ORAL Q8H PRN for For Pain Ibuprofen* (Motrin*), 600 MG ORAL Q8H PRN for For Pain Ondansetron Odt* (Zofran Odt*), 4 MG ORAL Q6H PRN for Nausea & Vomiting Patient History Healthcare decision maker Resuscitation status Full Code Advanced Directive on File No Review of Systems All Other Systems: negative except mentioned in HPI Physical Exam General Appearance: WD/WN Lines, tubes and drains: peripheral HEENT: normocephalic, atraumatic Neck: non-tender, supple Respiratory/Chest: chest wall non-tender, normal breath sounds Breasts: no masses Cardiovascular/Chest: normal rate Abdomen: tender Genitourinary/Rectal: normal rectal exam Extremities: normal range of motion Last 24 Hour Vital Signs Date Time Temp Pulse Resp B/P (MAP) Pulse Ox O2 Delivery O2 Flow Rate FiO2 10/24/18 12:00 98.5 71 20 115/79 (91) 97 10/24/18 09:36 98.1 10/24/18 09:00 Room Air 10/24/18 08:00 98.1 68 19 110/81 (91) 96 10/24/18 05:25 98.6 64 20 107/79 (88) 10/24/18 04:00 98.6 64 20 107/79 (88) 10/24/18 02:55 98.5 20 137/73 (94) 10/24/18 02:17 Room Air 10/24/18 01:29 97.8 67 16 130/67 100 10/23/18 22:16 98.0 10/23/18 22:16 98.0 10/23/18 20:45 98.0 78 18 128/80 96 Room Air 10/23/18 20:30 91 18 Room Air 10/23/18 20:15 98.2 91 18 135/103 96 Room Air Laboratory Tests Test 10/23/18 20:30 10/23/18 20:50 Urine Color Pale yellow Urine Appearance Clear Urine pH 5 (4.5-8.0) Urine Specific [place] 1.020 (1.005-1.035) Urine Protein Negative (NEGATIVE) Urine Glucose (UA) Negative (NEGATIVE) Urine Ketones Negative (NEGATIVE) Urine Blood Negative (NEGATIVE) Urine Nitrite Positive (NEGATIVE) H Urine Bilirubin Negative (NEGATIVE) Urine Urobilinogen Normal MG/DL (0.0-1.0) Urine Leukocyte Esterase 2+ (NEGATIVE) H Urine RBC 0-2 /HPF (0 - 2) Urine WBC 10-15 /HPF (0 - 2) H Urine Squamous Epithelial Cells Occasional /LPF Urine Bacteria Many /HPF (NONE) H White Blood Count 12.2 K/UL (4.8-10.8) H Red Blood Count 4.92 M/UL (4.20-5.40) Hemoglobin 14.2 G/DL (12.0-16.0) Hematocrit 42.4 % (37.0-47.0) Mean Corpuscular Volume 86 FL (80-99) Mean Corpuscular Hemoglobin 28.9 PG (27.0-31.0) Mean Corpuscular Hemoglobin Concent 33.5 G/DL (32.0-36.0) Red Cell Distribution Width 12.0 % (11.6-14.8) Platelet Count 230 K/UL (150-450) Mean Platelet Volume 8.4 FL (6.5-10.1) Neutrophils (%) (Auto) 57.2 % (45.0-75.0) Lymphocytes (%) (Auto) 34.4 % (20.0-45.0) Monocytes (%) (Auto) 6.1 % (1.0-10.0) Eosinophils (%) (Auto) 1.4 % (0.0-3.0) Basophils (%) (Auto) 1.0 % (0.0-2.0) Sodium Level 142 MMOL/L (136-145) Potassium Level 4.0 MMOL/L (3.5-5.1) Chloride Level 106 MMOL/L (98-107) Carbon Dioxide Level 30 MMOL/L (21-32) Anion Gap 6 mmol/L (5-15) Blood Urea Nitrogen 14 mg/dL (7-18) Creatinine 1.1 MG/DL (0.55-1.30) Estimat Glomerular Filtration Rate > 60 mL/min (>60) Glucose Level 98 MG/DL (74-106) Calcium Level 8.9 MG/DL (8.5-10.1) Total Bilirubin 0.3 MG/DL (0.2-1.0) Aspartate Amino Transf (AST/SGOT) 12 U/L (15-37) L Alanine Aminotransferase (ALT/SGPT) 14 U/L (12-78) Alkaline Phosphatase 80 U/L (46-116) Total Protein 6.9 G/DL (6.4-8.2) Albumin 3.4 G/DL (3.4-5.0) Globulin 3.5 g/dL Albumin/Globulin Ratio 1.0 (1.0-2.7) Microbiology Date/Time Source Procedure Growth Status 10/23/18 20:30 Urine,Clean Catch Urine Culture - Preliminary Gram Negative Bacillus 1 Resulted Height (Feet): 5 Height (Inches): 3.00 Weight (Pounds): 170 Medications Current Medications Medications (Trade) Dose Ordered Sig/Jackie Route PRN Reason Start Time Stop Time Status Last Admin Dose Admin Acetaminophen (Tylenol) 650 mg Q6H PRN ORAL Mild Pain/Temp > 100.5 10/24/18 06:30 11/23/18 06:29 Amitriptyline HCl (Elavil) 50 mg QHS ORAL 10/24/18 21:00 11/23/18 20:59 Ciprofloxacin 200 ml @ 200 mls/hr Q12HR IV 10/24/18 09:00 10/31/18 08:59 10/24/18 09:10 Dextrose (Dextrose 50%) 25 ml Q30M PRN IV Hypoglycemia 10/24/18 08:00 11/23/18 07:59 Dextrose (Dextrose 50%) 50 ml Q30M PRN IV Hypoglycemia 10/24/18 08:00 11/23/18 07:59 Gabapentin (Neurontin) 600 mg BID ORAL 10/24/18 09:00 11/23/18 08:59 10/24/18 09:06 Insulin Aspart (NovoLOG) BEFORE MEALS AND HS SUBQ 10/24/18 11:30 11/23/18 11:29 Iopamidol (Isovue-300 100ml) 100 ml NOW PRN INJ Radiology Procedure 10/23/18 23:00 Metronidazole 100 ml @ 100 mls/hr Q12HR IVPB 10/24/18 09:00 10/31/18 08:59 10/24/18 09:05 Morphine Sulfate (Morphine Sulfate) 2 mg Q4H PRN IVP Moderate Pain (Pain Scale 4-6) 10/24/18 08:30 10/31/18 08:29 10/24/18 09:06 Morphine Sulfate (Morphine Sulfate) 4 mg Q4H PRN IVP Severe Pain (Pain Scale 7-10) 10/24/18 06:30 10/31/18 06:29 10/24/18 07:14 Ondansetron HCl (Zofran) 4 mg Q4H PRN IVP Nausea & Vomiting 10/24/18 08:00 11/23/18 07:59 10/24/18 09:10 Sodium Chloride 1,000 ml @ 75 mls/hr [id number] IV 10/24/18 09:00 11/23/18 08:59 10/24/18 09:10 Assessment/Plan Problem List: (1) Diverticulitis ICD Codes: K57.92 - Diverticulitis of intestine, part unspecified, without perforation or abscess without bleeding SNOMED: [id number] Assessment/Plan npo iv fluids iv and po abx GI and surgery evaluation check electrolytes symptomatic treatment. Cate Weiner MD Oct 24, 2018 14:55
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
--- NOTE | 2018-10-24 17:58 | History & Physical ---
History and Physical History & Physicial Job @ [id number] Joni cMkoy MD Oct 24, 2018 17:58
--- NOTE | 2018-10-24 19:24 | NUR ---
HAND-OFF: Report given to OSIEL.
--- NOTE | 2018-10-24 19:46 | NUR ---
NURSE NOTES: PATIENT IN BED, AWAKE AND ALERT. IV IN PLACE. NO S/S DISTRESS. AT BEDSIDE. BED IN LOWEST POSITION, CALL LIGHT WITHIN REACH. HAD COMPLAINTS OF PAIN, PAIN MEDICATION WILL BE GIVEN ORDERED. WILL CONTINUE TO MONITOR.
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
--- NOTE | 2018-10-24 20:44 | NUR ---
CASE MANAGEMENT: REVIEW 63/F BIBA FROM HOME CC: PAIN DURING URINATION . PAIN CRAMPING LOWER ABDOMINAL SI: DIVERTICULITIS . UTI T 99.5 HR 80 BP 19 BP 125/84 SAT 96% ROOM AIR WBC 12.2 AST 12 UA: NITRITE + LEUKOCYTE 2+ BACTERIA MANY IS: MORPHINE IV X1 ZOFRAN IV X1 CEFTRIAXONE IV X1 NS IVF BOLUS X1 NPO PATIENT ADMITTED TO MED/SURG UNIT 10/23/2018 DCP: PATIENT IS FROM HOME
[2018-10-25] VITALS: BP 115/89
[2018-10-25] MEDS: Morphine Sulfate 4mg/ml Inj (IV USE ONLY) IVP PRN ×5 (00:07→21:38)
[2018-10-25 04:59] VITALS: BP 103/74
[2018-10-25] MEDS: NovoLOG Insulin Flexpen SUBQ SCH ×4 (05:55→20:34)
--- NOTE | 2018-10-25 06:00 | NUR ---
NURSE NOTES: PATIENT ASLEEP, NO DISTRESS.
--- NOTE | 2018-10-25 07:31 | NUR ---
HAND-OFF: Report given to EDUAR MEDINA RN.
[2018-10-25 08:00] VITALS: BP 138/71
--- NOTE | 2018-10-25 09:50 | NUR ---
NURSE NOTES: PT AXOX4, CALM, RESTING IN BED. IN NO APPARENT DISTRESS AT THIS TIME. STATES PAIN OF ABDOMEN 03/11. RN ADMINISTERED MORPHINE 4MG IVP ORDERED. NEW IV ACCESS ESTABLISHED ON LEFT HAND G24. AMBULATORY WITH STEADY GAIT. WILL CONTINUE TO MONITOR.
[2018-10-25] MEDS: NS w/KCl 20mEq 1,000 ML IV SCH (11:40)
[2018-10-25 12:00] VITALS: BP 111/74
--- NOTE | 2018-10-25 13:58 | Surgery Progress Note ---
Surgery Progress Note Subjective Symptoms: improved, tolerating diet, passing flatus Objective Last 24 Hour Vital Signs Date Time Temp Pulse Resp B/P (MAP) Pulse Ox O2 Delivery O2 Flow Rate FiO2 10/25/18 12:00 97.9 65 20 111/74 (86) 99 10/25/18 09:00 Room Air 10/25/18 08:00 98.6 66 18 138/71 (93) 97 10/25/18 04:59 98.6 73 18 103/74 (84) 98 10/25/18 00:37 98.5 10/25/18 00:00 98.1 80 18 115/89 (98) 94 10/24/18 20:01 Room Air 10/24/18 20:00 99.2 71 18 119/73 (88) 98 10/24/18 16:36 98.5 10/24/18 16:00 99.5 80 19 125/84 (98) 98 I&O Intake and Output 10/24/18 10/25/18 19:00 07:00 Intake Total 1700 ml 1065 ml Balance 1700 ml 1065 ml Intake Oral 800 ml 240 ml IV Total 900 ml 825 ml # Voids 6 3 Drains: none Cardiovascular: RSR Respiratory: clear Abdomen: soft, non-tender, present bowel sounds, non-distended Extremities: no cyanosis Plan Problems: (1) Diverticulitis Assessment & Plan: 63F uncomplicated acute diverticulitis. UTI. leukocytosis. abd pain CT with Suspected acute sigmoid diverticulitis mild in degree. No abscess identified. Normal appendix Degenerative changes of the spine 4 cm umbilical hernia containing fat. Status post hysterectomy. Question of thickening of the wall the distal esophagus. Consider endoscopy. Hiatal hernia noted. Reticular densities probably scarring or mild fibrosis at the periphery of the right lung base. -no acute surgical intervention planned -full liquid diet -IV Abx -IV Fluids -trend labs will follow with recs. thank you Lucas Pichardo Oct 25, 2018 13:58
--- NOTE | 2018-10-25 14:12 | NUR ---
CASE MANAGEMENT: REVIEW SI: DIVERTICULITIS . UTI T 97.9 HR 65 RR 20 BP 111/74 SAT 94% ROOM AIR IS: NOVOLOG SQ AC/HS CIPRO IV Q12HR FLAGYL IV Q12HR MED/SURG STATUS DCP: PATIENT IS FROM HOME
[2018-10-25] MEDS: Morphine Sulfate 2mg/ml Inj(IV/IM USE ONLY) IVP PRN (14:21)
[2018-10-25 15:55] VITALS: BP 135/73
[2018-10-25] MEDS ORDERED: Miralax 17gm pkt ORAL PRN (16:30)
--- NOTE | 2018-10-25 18:21 | Internal Med Progress Note ---
Subjective Date of Service: Oct 25, 2018 Physician Name KennedyRitchie Attending Physician Joni Mckoy MD Current Medications Medications (Trade) Dose Ordered Sig/Jackie Route PRN Reason Start Time Stop Time Status Last Admin Dose Admin Acetaminophen (Tylenol) 650 mg Q6H PRN ORAL Mild Pain/Temp > 100.5 10/24/18 06:30 11/23/18 06:29 Amitriptyline HCl (Elavil) 50 mg QHS ORAL 10/24/18 21:00 11/23/18 20:59 10/24/18 21:23 Ciprofloxacin 200 ml @ 200 mls/hr Q12HR IV 10/24/18 09:00 10/31/18 08:59 10/25/18 08:07 Dextrose (Dextrose 50%) 25 ml Q30M PRN IV Hypoglycemia 10/24/18 08:00 11/23/18 07:59 Dextrose (Dextrose 50%) 50 ml Q30M PRN IV Hypoglycemia 10/24/18 08:00 11/23/18 07:59 Gabapentin (Neurontin) 600 mg BID ORAL 10/24/18 09:00 11/23/18 08:59 10/25/18 17:36 Insulin Aspart (NovoLOG) BEFORE MEALS AND HS SUBQ 10/24/18 11:30 11/23/18 11:29 10/25/18 05:55 Iopamidol (Isovue-300 100ml) 100 ml NOW PRN INJ Radiology Procedure 10/23/18 23:00 Metronidazole 100 ml @ 100 mls/hr Q12HR IVPB 10/24/18 09:00 10/31/18 08:59 10/25/18 11:24 Morphine Sulfate (Morphine Sulfate) 2 mg Q4H PRN IVP Moderate Pain (Pain Scale 4-6) 10/24/18 08:30 10/31/18 08:29 10/25/18 14:21 Morphine Sulfate (Morphine Sulfate) 4 mg Q4H PRN IVP Severe Pain (Pain Scale 7-10) 10/24/18 06:30 10/31/18 06:29 10/25/18 17:36 Nicotine (Nicoderm) 1 patch Q24H TDERMAL 10/25/18 13:45 11/24/18 13:44 10/25/18 14:19 Ondansetron HCl (Zofran) 4 mg Q4H PRN IVP Nausea & Vomiting 10/24/18 08:00 11/23/18 07:59 10/25/18 17:36 Polyethylene Glycol (Miralax) 17 gm DAILY PRN ORAL Constipation 10/25/18 16:30 11/24/18 16:29 10/25/18 17:36 Sodium Chloride 1,000 ml @ 75 mls/hr [id number] IV 10/24/18 09:00 11/23/18 08:59 10/24/18 23:06 Allergies: Coded Allergies: LATEX (Verified Allergy, Unknown, 11/17/16) ROS Limited/Unobtainable: No Constitutional: Reports: no symptoms HEENT: Reports: no symptoms Cardiovascular: Reports: no symptoms Respiratory: Reports: no symptoms Gastrointestinal/Abdominal: Reports: abdominal pain Genitourinary: Reports: no symptoms Neurologic/Psychiatric: Reports: no symptoms Subjective 63 YO F admitted with abdominal pain. Now diverticulitis and UTI. Cover for Int med-Dr Mckoy Objective Last Vital Signs Date Time Temp Pulse Resp B/P (MAP) Pulse Ox O2 Delivery O2 Flow Rate FiO2 10/25/18 15:55 97.9 61 18 135/73 (93) 96 10/25/18 09:00 Room Air Microbiology Date/Time Source Procedure Growth Status 10/23/18 20:30 Urine,Clean Catch Urine Culture - Final Escherichia Coli Complete Intake and Output 10/24/18 10/25/18 19:00 07:00 Intake Total 1700 ml 1065 ml Balance 1700 ml 1065 ml Intake Oral 800 ml 240 ml IV Total 900 ml 825 ml # Voids 6 3 Objective PHYSICAL EXAMINATION: GENERAL: The patient awake responsive, no acute distress. HEENT: Head and neck examination, pupils are equal and reactive to light. Extraocular movements are intact. Neck was supple. No JVD. LUNGS: Good air entry. No wheezing or rales. HEART: S1 and S2 regular. No murmurs or gallops. ABDOMEN: Soft, and nondistended. Morbidly obese. Tenderness on the left lower quadrant. No rebound tenderness. No fluid shift. EXTREMITIES: No cyanosis, clubbing, or edema. NEUROLOGIC: Cranial nerves II through XII grossly intact. Motor is 5/5 in all extremities. Assessment/Plan Assessment/Plan ASSESSMENT: 1. Left lower quadrant pain 2. acute diverticulitis of the sigmoid colon. 3. Urinary tract infection -E. Coli 4. Diabetes type 2. 5. History of lower back pain. 6. Mild obesity. PLAN: 1. Admit the patient to medical/surgical. 2. We will follow up laboratory, clear liquid diet, advance as tolerated, pain medication. 3. Continue Cipro and Flagyl. 4. See General Surgery consultation Dr. Pichardo-no surgical intervention at this time 5. Code status is Full Code. 6. DVT prophylaxis with heparin subcutaneous. 7. Discussed with family member at bedside. Ritchie Kennedy MD Oct 25, 2018 18:21
--- NOTE | 2018-10-25 19:29 | NUR ---
HAND-OFF: Report given to Julissa HILLMAN RN.
--- NOTE | 2018-10-25 19:41 | NUR ---
NURSE NOTES: Received patient in bed. On RA, no SOB, no acute distress. R hand IV intact patent running fluids. Bed in lowest position, locked, alarms on. Call light in reach. Nicotine patch intact, reinforced smoke cessation.
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
[2018-10-25 20:00] VITALS: BP 128/79
[2018-10-26] VITALS: BP 138/75
[2018-10-26] MEDS: NS w/KCl 20mEq 1,000 ML IV SCH ×2 (01:10→13:21)
[2018-10-26] MEDS: Morphine Sulfate 4mg/ml Inj (IV USE ONLY) IVP PRN ×5 (02:01→19:52)
[2018-10-26 04:00] VITALS: BP 120/71
[2018-10-26] MEDS: NovoLOG Insulin Flexpen SUBQ SCH ×4 (06:05→20:43)
[2018-10-26 06:59] LABS: BASOPHILS % (AUTO) 1.2 % (0.0-2.0); EOSINOPHILS % (AUTO) 2.3 % (0.0-3.0); HEMATOCRIT 38.2 % (37.0-47.0); HEMOGLOBIN 13.1 G/DL (12.0-16.0); MEAN CORPUSCULAR VOLUME 85 FL (80-99); MONOCYTES % (AUTO) 6.1 % (1.0-10.0); NEUTROPHILS % (AUTO) 47.4 % (45.0-75.0); PLATELET COUNT 173 K/UL (150-450); RED BLOOD COUNT 4.49 M/UL (4.20-5.40); RED CELL DISTRIBUTION WIDTH 12.2 % (11.6-14.8); WHITE BLOOD COUNT 8.1 K/UL (4.8-10.8)
[2018-10-26 07:26] LABS: ALANINE AMINOTRANSFERASE 10 U/L (12-78); ALBUMIN 2.9 G/DL (3.4-5.0); ALBUMIN/GLOBULIN RATIO 0.9 (1.0-2.7); ALKALINE PHOSPHATASE 65 U/L (46-116); ANION GAP 4 mmol/L (5-15); ASPARTATE AMINO TRANSFERASE 13 U/L (15-37); BILIRUBIN,TOTAL 0.4 MG/DL (0.2-1.0); BLOOD UREA NITROGEN 7 mg/dL (7-18); CALCIUM 8.6 MG/DL (8.5-10.1); CARBON DIOXIDE 29 MMOL/L (21-32); CHLORIDE 108 MMOL/L (98-107); POTASSIUM 4.2 MMOL/L (3.5-5.1); SODIUM 141 MMOL/L (136-145)
--- NOTE | 2018-10-26 07:27 | NUR ---
HAND-OFF: Report given to Eris GALLEGO.
[2018-10-26 08:00] VITALS: BP 115/81
[2018-10-26 12:00] VITALS: BP 128/76
--- NOTE | 2018-10-26 13:57 | Surgery Progress Note ---
Surgery Progress Note Subjective Additional Comments no acute events. comfortable. states still having abd pain but improved compared to yesterday. has leg cramps Objective Last 24 Hour Vital Signs Date Time Temp Pulse Resp B/P (MAP) Pulse Ox O2 Delivery O2 Flow Rate FiO2 10/26/18 12:00 99.1 67 18 128/76 (93) 96 10/26/18 09:00 Room Air 10/26/18 08:00 98.5 72 18 115/81 (92) 95 10/26/18 04:00 98.4 71 18 120/71 (87) 98 10/26/18 00:00 98.8 75 18 138/75 (96) 98 10/25/18 21:00 Room Air 10/25/18 20:00 98.7 73 18 128/79 (95) 95 10/25/18 15:55 97.9 61 18 135/73 (93) 96 I&O Intake and Output 10/25/18 10/26/18 18:59 06:59 Intake Total 1775 ml 960 ml Balance 1775 ml 960 ml Intake Oral 360 ml IV Total 825 ml 600 ml Other 950 ml # Voids 3 Drains: none Cardiovascular: RSR Respiratory: clear Abdomen: soft, flat, non-tender, non-distended Extremities: no edema, no tenderness, no cyanosis Laboratory Tests Test 10/26/18 06:28 White Blood Count 8.1 K/UL (4.8-10.8) Red Blood Count 4.49 M/UL (4.20-5.40) Hemoglobin 13.1 G/DL (12.0-16.0) Hematocrit 38.2 % (37.0-47.0) Mean Corpuscular Volume 85 FL (80-99) Mean Corpuscular Hemoglobin 29.3 PG (27.0-31.0) Mean Corpuscular Hemoglobin Concent 34.4 G/DL (32.0-36.0) Red Cell Distribution Width 12.2 % (11.6-14.8) Platelet Count 173 K/UL (150-450) Mean Platelet Volume 8.4 FL (6.5-10.1) Neutrophils (%) (Auto) 47.4 % (45.0-75.0) Lymphocytes (%) (Auto) 43.0 % (20.0-45.0) Monocytes (%) (Auto) 6.1 % (1.0-10.0) Eosinophils (%) (Auto) 2.3 % (0.0-3.0) Basophils (%) (Auto) 1.2 % (0.0-2.0) Sodium Level 141 MMOL/L (136-145) Potassium Level 4.2 MMOL/L (3.5-5.1) Chloride Level 108 MMOL/L (98-107) H Carbon Dioxide Level 29 MMOL/L (21-32) Anion Gap 4 mmol/L (5-15) L Blood Urea Nitrogen 7 mg/dL (7-18) Creatinine 1.0 MG/DL (0.55-1.30) Estimat Glomerular Filtration Rate > 60 mL/min (>60) Glucose Level 99 MG/DL (74-106) Calcium Level 8.6 MG/DL (8.5-10.1) Total Bilirubin 0.4 MG/DL (0.2-1.0) Aspartate Amino Transf (AST/SGOT) 13 U/L (15-37) L Alanine Aminotransferase (ALT/SGPT) 10 U/L (12-78) L Alkaline Phosphatase 65 U/L (46-116) Total Protein 6.2 G/DL (6.4-8.2) L Albumin 2.9 G/DL (3.4-5.0) L Globulin 3.3 g/dL Albumin/Globulin Ratio 0.9 (1.0-2.7) L Plan Problems: (1) Diverticulitis Assessment & Plan: 63F uncomplicated acute diverticulitis. UTI. leukocytosis. abd pain CT with Suspected acute sigmoid diverticulitis mild in degree. No abscess identified. Normal appendix Degenerative changes of the spine 4 cm umbilical hernia containing fat. Status post hysterectomy. Question of thickening of the wall the distal esophagus. Consider endoscopy. Hiatal hernia noted. Reticular densities probably scarring or mild fibrosis at the periphery of the right lung base. -no acute surgical intervention planned -diet as tolerated -IV Abx -IV Fluids -trend labs -d/c planning will follow with recs. thank you Lucas Pichardo Oct 26, 2018 13:57
[2018-10-26 16:00] VITALS: BP 136/87
--- NOTE | 2018-10-26 16:08 | NUR ---
CASE MANAGEMENT: REVIEW SI: DIVERTICULITIS . UTI T 99.1 HR 67 RR 18 BP 128/76 SAT 96% ROOM AIR AST 13 ALT 10 ALBUMIN 2.9 IS: NOVOLOG SQ AC/HS CIPRO IV Q12HR FLAGYL IV Q12HR MED/SURG STATUS DCP: PATIENT IS FROM HOME
--- NOTE | 2018-10-26 16:53 | General Progress Note ---
Assessment/Plan Assessment/Plan Assessment - Acute diverticulitis Recommendations - Abx - follow exam - advance po diet as tolerated - Outpatient colonoscopy Subjective Allergies: Coded Allergies: LATEX (Verified Allergy, Unknown, 11/17/16) Subjective feels better still with LLQ pain, but less Objective Last 24 Hour Vital Signs Date Time Temp Pulse Resp B/P (MAP) Pulse Ox O2 Delivery O2 Flow Rate FiO2 10/26/18 16:00 98.0 82 18 136/87 (103) 96 10/26/18 12:00 99.1 67 18 128/76 (93) 96 10/26/18 09:00 Room Air 10/26/18 08:00 98.5 72 18 115/81 (92) 95 10/26/18 04:00 98.4 71 18 120/71 (87) 98 10/26/18 00:00 98.8 75 18 138/75 (96) 98 10/25/18 21:00 Room Air 10/25/18 20:00 98.7 73 18 128/79 (95) 95 Intake and Output 10/25/18 10/26/18 19:00 07:00 Intake Total 1775 ml 960 ml Balance 1775 ml 960 ml Intake Oral 360 ml IV Total 825 ml 600 ml Other 950 ml # Voids 3 Laboratory Tests 10/26/18 06:28: White Blood Count 8.1, Red Blood Count 4.49, Hemoglobin 13.1, Hematocrit 38.2, Mean Corpuscular Volume 85, Mean Corpuscular Hemoglobin 29.3, Mean Corpuscular Hemoglobin Concent 34.4, Red Cell Distribution Width 12.2, Platelet Count 173, Mean Platelet Volume 8.4, Neutrophils (%) (Auto) 47.4, Lymphocytes (%) (Auto) 43.0, Monocytes (%) (Auto) 6.1, Eosinophils (%) (Auto) 2.3, Basophils (%) (Auto ) 1.2, Sodium Level 141, Potassium Level 4.2, Chloride Level 108H, Carbon Dioxide Level 29, Anion Gap 4L, Blood Urea Nitrogen 7, Creatinine 1.0, Estimat Glomerular Filtration Rate > 60, Glucose Level 99, Calcium Level 8.6, Total Bilirubin 0.4, Aspartate Amino Transf (AST/SGOT) 13L, Alanine Aminotransferase ( ALT/SGPT) 10L, Alkaline Phosphatase 65, Total Protein 6.2L, Albumin 2.9L, Globulin 3.3, Albumin/Globulin Ratio 0.9L Height (Feet): 5 Height (Inches): 3.00 Weight (Pounds): 170 Objective WDWN AA woman NCAT supple CTA RRR Abd soft, mild LLQ TTP no edema non focal Alcira Angel MD Oct 26, 2018 16:52
[2018-10-26] MEDS ORDERED: Tubing IV Secondary IV ONE (17:26)
--- NOTE | 2018-10-26 18:32 | Internal Med Progress Note ---
Subjective Date of Service: Oct 26, 2018 Physician Name KennedyRitchie Attending Physician Joni Mckoy MD Current Medications Medications (Trade) Dose Ordered Sig/Jackie Route PRN Reason Start Time Stop Time Status Last Admin Dose Admin Acetaminophen (Tylenol) 650 mg Q6H PRN ORAL Mild Pain/Temp > 100.5 10/24/18 06:30 11/23/18 06:29 Amitriptyline HCl (Elavil) 50 mg QHS ORAL 10/24/18 21:00 11/23/18 20:59 10/25/18 20:34 Ciprofloxacin 200 ml @ 200 mls/hr Q12HR IV 10/24/18 09:00 10/31/18 08:59 10/26/18 08:07 Dextrose (Dextrose 50%) 25 ml Q30M PRN IV Hypoglycemia 10/24/18 08:00 11/23/18 07:59 Dextrose (Dextrose 50%) 50 ml Q30M PRN IV Hypoglycemia 10/24/18 08:00 11/23/18 07:59 Gabapentin (Neurontin) 600 mg BID ORAL 10/24/18 09:00 11/23/18 08:59 10/26/18 17:21 Insulin Aspart (NovoLOG) BEFORE MEALS AND HS SUBQ 10/24/18 11:30 11/23/18 11:29 10/26/18 17:30 Iopamidol (Isovue-300 100ml) 100 ml NOW PRN INJ Radiology Procedure 10/23/18 23:00 Lidocaine (Lidoderm 5% PATCH) 1 patch DAILY@1800 TDERMAL 10/26/18 18:00 11/25/18 17:59 10/26/18 17:21 Metronidazole 100 ml @ 100 mls/hr Q12HR IVPB 10/24/18 09:00 10/31/18 08:59 10/26/18 10:12 Morphine Sulfate (Morphine Sulfate) 2 mg Q4H PRN IVP Moderate Pain (Pain Scale 4-6) 10/24/18 08:30 10/31/18 08:29 10/25/18 14:21 Morphine Sulfate (Morphine Sulfate) 4 mg Q4H PRN IVP Severe Pain (Pain Scale 7-10) 10/24/18 06:30 10/31/18 06:29 10/26/18 15:12 Nicotine (Nicoderm) 1 patch Q24H TDERMAL 10/25/18 13:45 11/24/18 13:44 10/26/18 13:21 Ondansetron HCl (Zofran) 4 mg Q4H PRN IVP Nausea & Vomiting 10/24/18 08:00 11/23/18 07:59 10/26/18 15:11 Polyethylene Glycol (Miralax) 17 gm DAILY PRN ORAL Constipation 10/25/18 16:30 11/24/18 16:29 10/25/18 17:36 Sodium Chloride 1,000 ml @ 75 mls/hr [id number] IV 10/24/18 09:00 11/23/18 08:59 10/26/18 13:21 Allergies: Coded Allergies: LATEX (Verified Allergy, Unknown, 11/17/16) ROS Limited/Unobtainable: No Constitutional: Reports: no symptoms HEENT: Reports: no symptoms Cardiovascular: Reports: no symptoms Respiratory: Reports: no symptoms Gastrointestinal/Abdominal: Reports: abdominal pain Genitourinary: Reports: no symptoms Subjective 63 YO F admitted with abdominal pain. Now diverticulitis and UTI. Cover for Int [facility]-Dr Mckoy Objective Last Vital Signs Date Time Temp Pulse Resp B/P (MAP) Pulse Ox O2 Delivery O2 Flow Rate FiO2 10/26/18 16:00 98.0 82 18 136/87 (103) 96 10/26/18 09:00 Room Air Laboratory Tests Test 10/26/18 06:28 White Blood Count 8.1 K/UL (4.8-10.8) Red Blood Count 4.49 M/UL (4.20-5.40) Hemoglobin 13.1 G/DL (12.0-16.0) Hematocrit 38.2 % (37.0-47.0) Mean Corpuscular Volume 85 FL (80-99) Mean Corpuscular Hemoglobin 29.3 PG (27.0-31.0) Mean Corpuscular Hemoglobin Concent 34.4 G/DL (32.0-36.0) Red Cell Distribution Width 12.2 % (11.6-14.8) Platelet Count 173 K/UL (150-450) Mean Platelet Volume 8.4 FL (6.5-10.1) Neutrophils (%) (Auto) 47.4 % (45.0-75.0) Lymphocytes (%) (Auto) 43.0 % (20.0-45.0) Monocytes (%) (Auto) 6.1 % (1.0-10.0) Eosinophils (%) (Auto) 2.3 % (0.0-3.0) Basophils (%) (Auto) 1.2 % (0.0-2.0) Sodium Level 141 MMOL/L (136-145) Potassium Level 4.2 MMOL/L (3.5-5.1) Chloride Level 108 MMOL/L (98-107) H Carbon Dioxide Level 29 MMOL/L (21-32) Anion Gap 4 mmol/L (5-15) L Blood Urea Nitrogen 7 mg/dL (7-18) Creatinine 1.0 MG/DL (0.55-1.30) Estimat Glomerular Filtration Rate > 60 mL/min (>60) Glucose Level 99 MG/DL (74-106) Calcium Level 8.6 MG/DL (8.5-10.1) Total Bilirubin 0.4 MG/DL (0.2-1.0) Aspartate Amino Transf (AST/SGOT) 13 U/L (15-37) L Alanine Aminotransferase (ALT/SGPT) 10 U/L (12-78) L Alkaline Phosphatase 65 U/L (46-116) Total Protein 6.2 G/DL (6.4-8.2) L Albumin 2.9 G/DL (3.4-5.0) L Globulin 3.3 g/dL Albumin/Globulin Ratio 0.9 (1.0-2.7) L Microbiology Date/Time Source Procedure Growth Status 10/23/18 20:30 Urine,Clean Catch Urine Culture - Final Escherichia Coli Complete Intake and Output 10/25/18 10/26/18 19:00 07:00 Intake Total 1775 ml 960 ml Balance 1775 ml 960 ml Intake Oral 360 ml IV Total 825 ml 600 ml Other 950 ml # Voids 3 Objective PHYSICAL EXAMINATION: GENERAL: The patient awake responsive, no acute distress. HEENT: Head and neck examination, pupils are equal and reactive to light. Extraocular movements are intact. Neck was supple. No JVD. LUNGS: Good air entry. No wheezing or rales. HEART: S1 and S2 regular. No murmurs or gallops. ABDOMEN: Soft, and nondistended. Morbidly obese. Tenderness on the left lower quadrant. No rebound tenderness. No fluid shift. EXTREMITIES: No cyanosis, clubbing, or edema. NEUROLOGIC: Cranial nerves II through XII grossly intact. Motor is 5/5 in all extremities. Assessment/Plan Assessment/Plan ASSESSMENT: 1. Left lower quadrant pain 2. acute diverticulitis of the sigmoid colon. 3. Urinary tract infection -E. Coli 4. Diabetes type 2. 5. History of lower back pain. 6. Mild obesity. PLAN: 1. Admit the patient to medical/surgical. 2. We will follow up laboratory, clear liquid diet, advance as tolerated, pain medication. 3. Continue Cipro and Flagyl. 4. See General Surgery consultation Dr. Pichardo-no surgical intervention at this time 5. Code status is Full Code. 6. DVT prophylaxis with heparin subcutaneous. 7. Discussed with family member at bedside. Ritchie Kennedy MD Oct 26, 2018 18:32
--- NOTE | 2018-10-26 19:22 | NUR ---
HAND-OFF: Report given to NEETU Barillas RN.
--- NOTE | 2018-10-26 19:30 | NUR ---
NURSE NOTES: Patient awake in bed, alert and oriented x4. Complains of pain 8/10. Will medicate as ordered. Call light and needs and in reach. Bed in lowest position, lock engaged and alarm on Will continue to monitor.
[2018-10-26 20:00] VITALS: BP 130/87
[2018-10-27] VITALS: BP 127/84
[2018-10-27] MEDS: Morphine Sulfate 4mg/ml Inj (IV USE ONLY) IVP PRN ×5 (00:30→21:21)
[2018-10-27 04:00] VITALS: BP 137/78
--- NOTE | 2018-10-27 04:25 | NUR ---
NURSE NOTES: Patient verbalized she needed pain medicine to the [employer] when vital signs were taken at 0400. RN checked patient and asked her but she was sleeping and didn't wake up. Will checked again later.
[2018-10-27] MEDS: NS w/KCl 20mEq 1,000 ML IV SCH ×2 (06:08→17:00)
[2018-10-27] MEDS: NovoLOG Insulin Flexpen SUBQ SCH ×4 (06:12→21:32)
--- NOTE | 2018-10-27 07:21 | NUR ---
HAND-OFF: Report given to LASHONDA Salvador.
[2018-10-27 07:40] LABS: BASOPHILS % (AUTO) 1.3 % (0.0-2.0); EOSINOPHILS % (AUTO) 3.9 % (0.0-3.0); HEMATOCRIT 40.4 % (37.0-47.0); HEMOGLOBIN 13.1 G/DL (12.0-16.0); LYMPHOCYTES % (AUTO) 45.8 % (20.0-45.0); MEAN CORPUSCULAR VOLUME 87 FL (80-99); MONOCYTES % (AUTO) 5.5 % (1.0-10.0); NEUTROPHILS % (AUTO) 43.5 % (45.0-75.0); PLATELET COUNT 221 K/UL (150-450); RED BLOOD COUNT 4.62 M/UL (4.20-5.40); RED CELL DISTRIBUTION WIDTH 11.9 % (11.6-14.8); WHITE BLOOD COUNT 7.1 K/UL (4.8-10.8)
--- NOTE | 2018-10-27 07:58 | NUR ---
NURSE NOTES: Patient received in stable condition, resting in bed. Alert and oriented. Breathing unlabored on room air. Denies respiratory distress or pain at this time. IV site on right hand patent and intact. Fluids running at 75cc/hr. Bed locked, call light placed within reach. Will continue to monitor.
[2018-10-27 08:02] LABS: ANION GAP 5 mmol/L (5-15); BLOOD UREA NITROGEN 6 mg/dL (7-18); CALCIUM 8.8 MG/DL (8.5-10.1); CARBON DIOXIDE 29 MMOL/L (21-32); CHLORIDE 108 MMOL/L (98-107); POTASSIUM 4.6 MMOL/L (3.5-5.1); SODIUM 142 MMOL/L (136-145)
[2018-10-27] MEDS: Morphine Sulfate 2mg/ml Inj(IV/IM USE ONLY) IVP PRN (08:30)
[2018-10-27 12:00] VITALS: BP 137/66
--- NOTE | 2018-10-27 12:03 | GI Progress Note ---
Assessment/Plan Problems: (1) Diverticulitis ICD Codes: K57.92 - Diverticulitis of intestine, part unspecified, without perforation or abscess without bleeding SNOMED: 437688950 (2) Anxiety ICD Codes: F41.9 - Anxiety disorder, unspecified SNOMED: 20473926 (3) Marijuana abuse ICD Codes: F12.10 - Cannabis abuse, uncomplicated SNOMED: 69702740 (4) Abdominal pain of unknown etiology ICD Codes: R10.9 - Unspecified abdominal pain SNOMED: 128469917 (5) Tobacco abuse ICD Codes: F17.200 - Nicotine dependence, unspecified, uncomplicated SNOMED: 24512550 Status: unchanged Status Narrative Discussed with Dr. Vaughn Assessment/Plan Assessment - Acute diverticulitis - believes she is diabetic, normal glucose levels noted Recommendations - Abx - follow exam - advance po diet as tolerated - pain mgmt - Outpatient colonoscopy The patient was seen and examined at bedside and all new and available data was reviewed in the patients chart. I agree with the above findings, impression and plan. (Patient seen earlier today. Signature stamp does not reflect patient encounter time.). - Ky Vaughn MD Subjective Gastrointestinal/Abdominal: Reports: abdominal pain Subjective Patient still has chronic abdominal pain after p.o. intake Objective Last 24 Hour Vital Signs Date Time Temp Pulse Resp B/P (MAP) Pulse Ox O2 Delivery O2 Flow Rate FiO2 10/27/18 09:00 Room Air 10/27/18 09:00 98.4 10/27/18 04:00 98.4 76 18 137/78 (97) 98 10/27/18 00:00 98.2 67 20 127/84 (98) 98 10/26/18 21:00 Room Air 10/26/18 20:00 99.0 74 18 130/87 (101) 94 10/26/18 16:00 98.0 82 18 136/87 (103) 96 Intake and Output 10/26/18 10/27/18 19:00 07:00 Intake Total 1050 ml 2300 ml Balance 1050 ml 2300 ml IV Total 1050 ml 900 ml Other 1400 ml # Voids 5 Laboratory Tests Test 10/27/18 06:45 White Blood Count 7.1 K/UL (4.8-10.8) Red Blood Count 4.62 M/UL (4.20-5.40) Hemoglobin 13.1 G/DL (12.0-16.0) Hematocrit 40.4 % (37.0-47.0) Mean Corpuscular Volume 87 FL (80-99) Mean Corpuscular Hemoglobin 28.3 PG (27.0-31.0) Mean Corpuscular Hemoglobin Concent 32.4 G/DL (32.0-36.0) Red Cell Distribution Width 11.9 % (11.6-14.8) Platelet Count 221 K/UL (150-450) Mean Platelet Volume 7.4 FL (6.5-10.1) Neutrophils (%) (Auto) 43.5 % (45.0-75.0) L Lymphocytes (%) (Auto) 45.8 % (20.0-45.0) H Monocytes (%) (Auto) 5.5 % (1.0-10.0) Eosinophils (%) (Auto) 3.9 % (0.0-3.0) H Basophils (%) (Auto) 1.3 % (0.0-2.0) Sodium Level 142 MMOL/L (136-145) Potassium Level 4.6 MMOL/L (3.5-5.1) Chloride Level 108 MMOL/L (98-107) H Carbon Dioxide Level 29 MMOL/L (21-32) Anion Gap 5 mmol/L (5-15) Blood Urea Nitrogen 6 mg/dL (7-18) L Creatinine 1.0 MG/DL (0.55-1.30) Estimat Glomerular Filtration Rate > 60 mL/min (>60) Glucose Level 89 MG/DL (74-106) Calcium Level 8.8 MG/DL (8.5-10.1) Height (Feet): 5 Height (Inches): 3.00 Weight (Pounds): 170 General Appearance: WD/WN, no apparent distress, alert, thin Cardiovascular: normal rate Respiratory/Chest: normal breath sounds, no respiratory distress Abdominal Exam: normal bowel sounds, non tender, soft Extremities: normal range of motion, non-tender Sheryl Garcia NP Oct 27, 2018 12:03
--- NOTE | 2018-10-27 14:24 | Pulmonology Progress Note ---
Assessment/Plan Problems: (1) Diverticulitis Assessment/Plan eating well continue abx check electrolytes advance diet Subjective ROS Limited/Unobtainable: No Interval Events: slightly better Allergies: Coded Allergies: LATEX (Verified Allergy, Unknown, 11/17/16) Objective Last 24 Hour Vital Signs Date Time Temp Pulse Resp B/P (MAP) Pulse Ox O2 Delivery O2 Flow Rate FiO2 10/27/18 12:00 97.7 66 21 137/66 (89) 97 10/27/18 09:00 Room Air 10/27/18 09:00 98.4 10/27/18 04:00 98.4 76 18 137/78 (97) 98 10/27/18 00:00 98.2 67 20 127/84 (98) 98 10/26/18 21:00 Room Air 10/26/18 20:00 99.0 74 18 130/87 (101) 94 10/26/18 16:00 98.0 82 18 136/87 (103) 96 Intake and Output 10/26/18 10/27/18 18:59 06:59 Intake Total 1050 ml 2300 ml Balance 1050 ml 2300 ml IV Total 1050 ml 900 ml Other 1400 ml # Voids 5 Objective General Appearance: WD/WN HEENT: normocephalic Respiratory/Chest: chest wall non-tender, lungs clear, normal breath sounds Breasts: no masses Cardiovascular: normal peripheral pulses, normal rate Abdomen: normal bowel sounds, soft, non tender Extremities: no cyanosis Skin: no rash Laboratory Tests 10/27/18 06:45: White Blood Count 7.1, Red Blood Count 4.62, Hemoglobin 13.1, Hematocrit 40.4, Mean Corpuscular Volume 87, Mean Corpuscular Hemoglobin 28.3, Mean Corpuscular Hemoglobin Concent 32.4, Red Cell Distribution Width 11.9, Platelet Count 221, Mean Platelet Volume 7.4, Neutrophils (%) (Auto) 43.5L, Lymphocytes (%) (Auto) 45.8H, Monocytes (%) (Auto) 5.5, Eosinophils (%) (Auto) 3.9H, Basophils (%) ( Auto) 1.3, Sodium Level 142, Potassium Level 4.6, Chloride Level 108H, Carbon Dioxide Level 29, Anion Gap 5, Blood Urea Nitrogen 6L, Creatinine 1.0, Estimat Glomerular Filtration Rate > 60, Glucose Level 89, Calcium Level 8.8 Current Medications Medications (Trade) Dose Ordered Sig/Jackie Route PRN Reason Start Time Stop Time Status Last Admin Dose Admin Acetaminophen (Tylenol) 650 mg Q6H PRN ORAL Mild Pain/Temp > 100.5 10/24/18 06:30 11/23/18 06:29 Amitriptyline HCl (Elavil) 50 mg QHS ORAL 10/24/18 21:00 11/23/18 20:59 10/26/18 20:37 Ciprofloxacin 200 ml @ 200 mls/hr Q12HR IV 10/24/18 09:00 10/31/18 08:59 10/27/18 08:22 Dextrose (Dextrose 50%) 25 ml Q30M PRN IV Hypoglycemia 10/24/18 08:00 11/23/18 07:59 Dextrose (Dextrose 50%) 50 ml Q30M PRN IV Hypoglycemia 10/24/18 08:00 11/23/18 07:59 Gabapentin (Neurontin) 600 mg BID ORAL 10/24/18 09:00 11/23/18 08:59 10/27/18 08:22 Insulin Aspart (NovoLOG) BEFORE MEALS AND HS SUBQ 10/24/18 11:30 11/23/18 11:29 10/27/18 11:30 Iopamidol (Isovue-300 100ml) 100 ml NOW PRN INJ Radiology Procedure 10/23/18 23:00 Lidocaine (Lidoderm 5% PATCH) 1 patch DAILY@1800 TDERMAL 10/26/18 18:00 11/25/18 17:59 10/26/18 17:21 Metronidazole 100 ml @ 100 mls/hr Q12HR IVPB 10/24/18 09:00 10/31/18 08:59 10/27/18 08:22 Morphine Sulfate (Morphine Sulfate) 2 mg Q4H PRN IVP Moderate Pain (Pain Scale 4-6) 10/24/18 08:30 10/31/18 08:29 10/27/18 08:30 Morphine Sulfate (Morphine Sulfate) 4 mg Q4H PRN IVP Severe Pain (Pain Scale 7-10) 10/24/18 06:30 10/31/18 06:29 10/27/18 12:33 Nicotine (Nicoderm) 1 patch Q24H TDERMAL 10/25/18 13:45 11/24/18 13:44 10/27/18 12:31 Ondansetron HCl (Zofran) 4 mg Q4H PRN IVP Nausea & Vomiting 10/24/18 08:00 11/23/18 07:59 10/27/18 05:01 Polyethylene Glycol (Miralax) 17 gm DAILY PRN ORAL Constipation 10/25/18 16:30 11/24/18 16:29 10/25/18 17:36 Sodium Chloride 1,000 ml @ 75 mls/hr [id number] IV 10/24/18 09:00 11/23/18 08:59 10/27/18 06:08 Cate Weiner MD Oct 27, 2018 14:24
--- NOTE | 2018-10-27 14:59 | Surgery Progress Note ---
Surgery Progress Note Subjective Additional Comments labs okay. exam benign. tolerating regular diet. no n/v/f/c. states has pain intermittently. Objective Last 24 Hour Vital Signs Date Time Temp Pulse Resp B/P (MAP) Pulse Ox O2 Delivery O2 Flow Rate FiO2 10/27/18 12:00 97.7 66 21 137/66 (89) 97 10/27/18 09:00 Room Air 10/27/18 09:00 98.4 10/27/18 04:00 98.4 76 18 137/78 (97) 98 10/27/18 00:00 98.2 67 20 127/84 (98) 98 10/26/18 21:00 Room Air 10/26/18 20:00 99.0 74 18 130/87 (101) 94 10/26/18 16:00 98.0 82 18 136/87 (103) 96 I&O Intake and Output 10/26/18 10/27/18 18:59 06:59 Intake Total 1050 ml 2300 ml Balance 1050 ml 2300 ml IV Total 1050 ml 900 ml Other 1400 ml # Voids 5 Cardiovascular: RSR Respiratory: clear Abdomen: soft, flat, non-tender, non-distended Extremities: no cyanosis Laboratory Tests Test 10/27/18 06:45 White Blood Count 7.1 K/UL (4.8-10.8) Red Blood Count 4.62 M/UL (4.20-5.40) Hemoglobin 13.1 G/DL (12.0-16.0) Hematocrit 40.4 % (37.0-47.0) Mean Corpuscular Volume 87 FL (80-99) Mean Corpuscular Hemoglobin 28.3 PG (27.0-31.0) Mean Corpuscular Hemoglobin Concent 32.4 G/DL (32.0-36.0) Red Cell Distribution Width 11.9 % (11.6-14.8) Platelet Count 221 K/UL (150-450) Mean Platelet Volume 7.4 FL (6.5-10.1) Neutrophils (%) (Auto) 43.5 % (45.0-75.0) L Lymphocytes (%) (Auto) 45.8 % (20.0-45.0) H Monocytes (%) (Auto) 5.5 % (1.0-10.0) Eosinophils (%) (Auto) 3.9 % (0.0-3.0) H Basophils (%) (Auto) 1.3 % (0.0-2.0) Sodium Level 142 MMOL/L (136-145) Potassium Level 4.6 MMOL/L (3.5-5.1) Chloride Level 108 MMOL/L (98-107) H Carbon Dioxide Level 29 MMOL/L (21-32) Anion Gap 5 mmol/L (5-15) Blood Urea Nitrogen 6 mg/dL (7-18) L Creatinine 1.0 MG/DL (0.55-1.30) Estimat Glomerular Filtration Rate > 60 mL/min (>60) Glucose Level 89 MG/DL (74-106) Calcium Level 8.8 MG/DL (8.5-10.1) Plan Problems: (1) Diverticulitis Assessment & Plan: 63F uncomplicated acute diverticulitis. UTI. leukocytosis. abd pain CT with Suspected acute sigmoid diverticulitis mild in degree. No abscess identified. Normal appendix Degenerative changes of the spine 4 cm umbilical hernia containing fat. Status post hysterectomy. Question of thickening of the wall the distal esophagus. Consider endoscopy. Hiatal hernia noted. Reticular densities probably scarring or mild fibrosis at the periphery of the right lung base. -no acute surgical intervention planned -diet as tolerated -IV Abx - transition to oral for d/c -outpatient colonoscopy -IV Fluids -trend labs -d/c planning will follow with recs. thank you Lucas Pichardo Oct 27, 2018 14:59
[2018-10-27 16:00] VITALS: BP 118/71
--- NOTE | 2018-10-27 17:26 | NUR ---
CASE MANAGEMENT: REVIEW 10/27/2018 SI: DIVERTICULITIS . UTI T 97.6 HR 66 RR 19 B/P 118/71 SATS 95% ON RA CL 108 BUN 6 IS: NOVOLOG SUBQ AC/HS CIPRO IV Q12HR FLAGYL IV Q12HR MED/SURG STATUS DCP: PATIENT IS FROM HOME
--- NOTE | 2018-10-27 19:11 | NUR ---
HAND-OFF: Report given to Ila GALLEGO.
--- NOTE | 2018-10-27 19:19 | Internal Med Progress Note ---
Subjective Date of Service: Oct 27, 2018 Physician Name KennedyRitchie Attending Physician Joni Mckoy MD Current Medications Medications (Trade) Dose Ordered Sig/Jackie Route PRN Reason Start Time Stop Time Status Last Admin Dose Admin Acetaminophen (Tylenol) 650 mg Q6H PRN ORAL Mild Pain/Temp > 100.5 10/24/18 06:30 11/23/18 06:29 Amitriptyline HCl (Elavil) 50 mg QHS ORAL 10/24/18 21:00 11/23/18 20:59 10/26/18 20:37 Ciprofloxacin 200 ml @ 200 mls/hr Q12HR IV 10/24/18 09:00 10/31/18 08:59 10/27/18 08:22 Dextrose (Dextrose 50%) 25 ml Q30M PRN IV Hypoglycemia 10/24/18 08:00 11/23/18 07:59 Dextrose (Dextrose 50%) 50 ml Q30M PRN IV Hypoglycemia 10/24/18 08:00 11/23/18 07:59 Gabapentin (Neurontin) 600 mg BID ORAL 10/24/18 09:00 11/23/18 08:59 10/27/18 17:09 Insulin Aspart (NovoLOG) BEFORE MEALS AND HS SUBQ 10/24/18 11:30 11/23/18 11:29 10/27/18 16:30 Iopamidol (Isovue-300 100ml) 100 ml NOW PRN INJ Radiology Procedure 10/23/18 23:00 Lidocaine (Lidoderm 5% PATCH) 1 patch DAILY@1800 TDERMAL 10/26/18 18:00 11/25/18 17:59 10/27/18 17:09 Metronidazole 100 ml @ 100 mls/hr Q12HR IVPB 10/24/18 09:00 10/31/18 08:59 10/27/18 08:22 Morphine Sulfate (Morphine Sulfate) 2 mg Q4H PRN IVP Moderate Pain (Pain Scale 4-6) 10/24/18 08:30 10/31/18 08:29 10/27/18 08:30 Morphine Sulfate (Morphine Sulfate) 4 mg Q4H PRN IVP Severe Pain (Pain Scale 7-10) 10/24/18 06:30 10/31/18 06:29 10/27/18 17:09 Nicotine (Nicoderm) 1 patch Q24H TDERMAL 10/25/18 13:45 11/24/18 13:44 10/27/18 12:31 Ondansetron HCl (Zofran) 4 mg Q4H PRN IVP Nausea & Vomiting 10/24/18 08:00 11/23/18 07:59 10/27/18 05:01 Polyethylene Glycol (Miralax) 17 gm DAILY PRN ORAL Constipation 10/25/18 16:30 11/24/18 16:29 10/25/18 17:36 Sodium Chloride 1,000 ml @ 75 mls/hr [id number] IV 10/24/18 09:00 11/23/18 08:59 10/27/18 06:08 Allergies: Coded Allergies: LATEX (Verified Allergy, Unknown, 11/17/16) ROS Limited/Unobtainable: No Constitutional: Reports: no symptoms HEENT: Reports: no symptoms Cardiovascular: Reports: no symptoms Respiratory: Reports: no symptoms Gastrointestinal/Abdominal: Reports: abdominal pain Genitourinary: Reports: no symptoms Neurologic/Psychiatric: Reports: no symptoms Subjective 63 YO F admitted with abdominal pain. Now diverticulitis and UTI. Cover for Int med-Dr Mckoy Objective Last Vital Signs Date Time Temp Pulse Resp B/P (MAP) Pulse Ox O2 Delivery O2 Flow Rate FiO2 10/27/18 16:00 97.6 66 19 118/71 (87) 95 10/27/18 09:00 Room Air Laboratory Tests Test 10/27/18 06:45 White Blood Count 7.1 K/UL (4.8-10.8) Red Blood Count 4.62 M/UL (4.20-5.40) Hemoglobin 13.1 G/DL (12.0-16.0) Hematocrit 40.4 % (37.0-47.0) Mean Corpuscular Volume 87 FL (80-99) Mean Corpuscular Hemoglobin 28.3 PG (27.0-31.0) Mean Corpuscular Hemoglobin Concent 32.4 G/DL (32.0-36.0) Red Cell Distribution Width 11.9 % (11.6-14.8) Platelet Count 221 K/UL (150-450) Mean Platelet Volume 7.4 FL (6.5-10.1) Neutrophils (%) (Auto) 43.5 % (45.0-75.0) L Lymphocytes (%) (Auto) 45.8 % (20.0-45.0) H Monocytes (%) (Auto) 5.5 % (1.0-10.0) Eosinophils (%) (Auto) 3.9 % (0.0-3.0) H Basophils (%) (Auto) 1.3 % (0.0-2.0) Sodium Level 142 MMOL/L (136-145) Potassium Level 4.6 MMOL/L (3.5-5.1) Chloride Level 108 MMOL/L (98-107) H Carbon Dioxide Level 29 MMOL/L (21-32) Anion Gap 5 mmol/L (5-15) Blood Urea Nitrogen 6 mg/dL (7-18) L Creatinine 1.0 MG/DL (0.55-1.30) Estimat Glomerular Filtration Rate > 60 mL/min (>60) Glucose Level 89 MG/DL (74-106) Calcium Level 8.8 MG/DL (8.5-10.1) Intake and Output 10/26/18 10/27/18 18:59 06:59 Intake Total 1050 ml 2300 ml Balance 1050 ml 2300 ml IV Total 1050 ml 900 ml Other 1400 ml # Voids 5 Objective PHYSICAL EXAMINATION: GENERAL: The patient awake responsive, no acute distress. HEENT: Head and neck examination, pupils are equal and reactive to light. Extraocular movements are intact. Neck was supple. No JVD. LUNGS: Good air entry. No wheezing or rales. HEART: S1 and S2 regular. No murmurs or gallops. ABDOMEN: Soft, and nondistended. Morbidly obese. Tenderness on the left lower quadrant. No rebound tenderness. No fluid shift. EXTREMITIES: No cyanosis, clubbing, or edema. NEUROLOGIC: Cranial nerves II through XII grossly intact. Motor is 5/5 in all extremities. Assessment/Plan Assessment/Plan ASSESSMENT: 1. Left lower quadrant pain 2. acute diverticulitis of the sigmoid colon. 3. Urinary tract infection -E. Coli 4. Diabetes type 2. 5. History of lower back pain. 6. Mild obesity. PLAN: 1. Admit the patient to medical/surgical. 2. We will follow up laboratory, clear liquid diet, advance as tolerated, pain medication. 3. Continue Cipro and Flagyl. 4. See General Surgery consultation Dr. Pichardo-no surgical intervention at this time 5. Code status is Full Code. 6. DVT prophylaxis with heparin subcutaneous. 7. Advance diet as tolerated Ritchie Kennedy MD Oct 27, 2018 19:19
--- NOTE | 2018-10-27 19:30 | NUR ---
NURSE NOTES: Patient in bed, not in acute respiratory distress. Instructed the use of call light. Call light and needs in reach. Bed in lowest position and lock engaged. Will continue to monitor.
[2018-10-27 20:00] VITALS: BP 130/70
[2018-10-28] VITALS: BP 122/67
[2018-10-28] MEDS: Morphine Sulfate 4mg/ml Inj (IV USE ONLY) IVP PRN ×2 (02:04→06:18)
[2018-10-28 04:00] VITALS: BP 144/70
--- NOTE | 2018-10-28 04:19 | NUR ---
NURSE NOTES: Patient verbalized that she needed her pain med to be increase in dose. When RN went to the room to check pt several times in the shift, she was asleep and comfortable. Medicated as ordered.
[2018-10-28] MEDS: NovoLOG Insulin Flexpen SUBQ SCH ×2 (06:12→11:30)
[2018-10-28] MEDS: NS w/KCl 20mEq 1,000 ML IV SCH (06:24)
--- NOTE | 2018-10-28 07:20 | NUR ---
NURSE NOTES: Received patient in bed. patient awake, alert, oriented x4, no sign of distress, right forearam IVF intact patent running fluids.on fall precaution observed and maintained, Bed in lowest position, locked, alarms on. Call light in reach. mel middleton
[2018-10-28 07:32] LABS: BASOPHILS % (AUTO) 1.4 % (0.0-2.0); EOSINOPHILS % (AUTO) 4.9 % (0.0-3.0); HEMATOCRIT 39.8 % (37.0-47.0); HEMOGLOBIN 12.8 G/DL (12.0-16.0); LYMPHOCYTES % (AUTO) 47.3 % (20.0-45.0); MEAN CORPUSCULAR VOLUME 87 FL (80-99); MONOCYTES % (AUTO) 6.8 % (1.0-10.0); NEUTROPHILS % (AUTO) 39.7 % (45.0-75.0); PLATELET COUNT 239 K/UL (150-450); RED BLOOD COUNT 4.55 M/UL (4.20-5.40); WHITE BLOOD COUNT 7.1 K/UL (4.8-10.8)
--- NOTE | 2018-10-28 07:33 | NUR ---
HAND-OFF: Report given to LASHONDA Jain.
[2018-10-28 07:36] LABS: ANION GAP 6 mmol/L (5-15); BLOOD UREA NITROGEN 11 mg/dL (7-18); CALCIUM 8.8 MG/DL (8.5-10.1); CARBON DIOXIDE 29 MMOL/L (21-32); CHLORIDE 106 MMOL/L (98-107); CREATININE 1.1 MG/DL (0.55-1.30); POTASSIUM 4.6 MMOL/L (3.5-5.1); SODIUM 141 MMOL/L (136-145)
[2018-10-28 08:35] VITALS: BP 148/84
[2018-10-28] MEDS: Morphine Sulfate 2mg/ml Inj(IV/IM USE ONLY) IVP PRN (10:22)
--- NOTE | 2018-10-28 11:43 | GI Progress Note ---
Assessment/Plan Problems: (1) Diverticulitis ICD Codes: K57.92 - Diverticulitis of intestine, part unspecified, without perforation or abscess without bleeding SNOMED: 846611542 (2) Anxiety ICD Codes: F41.9 - Anxiety disorder, unspecified SNOMED: 10979332 (3) Marijuana abuse ICD Codes: F12.10 - Cannabis abuse, uncomplicated SNOMED: 80122536 (4) Abdominal pain of unknown etiology ICD Codes: R10.9 - Unspecified abdominal pain SNOMED: 020094937 (5) Tobacco abuse ICD Codes: F17.200 - Nicotine dependence, unspecified, uncomplicated SNOMED: 03543332 Status: stable Status Narrative Discussed with Dr. Vaughn. Assessment/Plan Assessment - Acute diverticulitis Recommendations - Abx - follow exam - advance po diet as tolerated - pain mgmt - Outpatient colonoscopy 6-8 weeks after discharge The patient was seen and examined at bedside and all new and available data was reviewed in the patients chart. I agree with the above findings, impression and plan. (Patient seen earlier today. Signature stamp does not reflect patient encounter time.). - Ky Vaughn MD Subjective Subjective abdominal pain improved Objective Last 24 Hour Vital Signs Date Time Temp Pulse Resp B/P (MAP) Pulse Ox O2 Delivery O2 Flow Rate FiO2 10/28/18 08:35 98.1 75 20 148/84 (105) 94 10/28/18 08:00 Room Air 10/28/18 04:00 98.1 68 16 144/70 (94) 94 10/28/18 00:00 98.3 75 18 122/67 (85) 91 10/27/18 21:00 Room Air 10/27/18 20:00 99.5 82 20 130/70 (90) 96 10/27/18 16:00 97.6 66 19 118/71 (87) 95 10/27/18 12:00 97.7 66 21 137/66 (89) 97 Intake and Output 10/27/18 10/28/18 19:00 07:00 Intake Total 555 ml 1100 ml Balance 555 ml 1100 ml Intake Oral 480 ml 500 ml IV Total 75 ml 600 ml # Voids 4 3 Laboratory Tests Test 10/28/18 06:15 White Blood Count 7.1 K/UL (4.8-10.8) Red Blood Count 4.55 M/UL (4.20-5.40) Hemoglobin 12.8 G/DL (12.0-16.0) Hematocrit 39.8 % (37.0-47.0) Mean Corpuscular Volume 87 FL (80-99) Mean Corpuscular Hemoglobin 28.1 PG (27.0-31.0) Mean Corpuscular Hemoglobin Concent 32.1 G/DL (32.0-36.0) Red Cell Distribution Width 12.0 % (11.6-14.8) Platelet Count 239 K/UL (150-450) Mean Platelet Volume 7.9 FL (6.5-10.1) Neutrophils (%) (Auto) 39.7 % (45.0-75.0) L Lymphocytes (%) (Auto) 47.3 % (20.0-45.0) H Monocytes (%) (Auto) 6.8 % (1.0-10.0) Eosinophils (%) (Auto) 4.9 % (0.0-3.0) H Basophils (%) (Auto) 1.4 % (0.0-2.0) Sodium Level 141 MMOL/L (136-145) Potassium Level 4.6 MMOL/L (3.5-5.1) Chloride Level 106 MMOL/L (98-107) Carbon Dioxide Level 29 MMOL/L (21-32) Anion Gap 6 mmol/L (5-15) Blood Urea Nitrogen 11 mg/dL (7-18) Creatinine 1.1 MG/DL (0.55-1.30) Estimat Glomerular Filtration Rate > 60 mL/min (>60) Glucose Level 98 MG/DL (74-106) Calcium Level 8.8 MG/DL (8.5-10.1) Height (Feet): 5 Height (Inches): 3.00 Weight (Pounds): 170 General Appearance: WD/WN, no apparent distress, alert Cardiovascular: normal rate Respiratory/Chest: normal breath sounds, no respiratory distress Abdominal Exam: normal bowel sounds, non tender, soft Extremities: normal range of motion, non-tender Sheryl Garcia NP Oct 28, 2018 11:43
[2018-10-28 12:00] VITALS: BP 123/71
[2018-10-28] MEDS ORDERED: ZOFRAN4 M1 ORAL (13:43)
[2018-10-28] MEDS ORDERED: CIPRO500 MG/51 PO (13:43)
[2018-10-28] MEDS ORDERED: FLAGYL500 MG ORAL (13:43)
--- NOTE | 2018-10-28 13:44 | Pulmonology Progress Note ---
Assessment/Plan Problems: (1) Diverticulitis Assessment/Plan improving eating well continue abx check electrolytes advance diet dc home with oral abx Subjective ROS Limited/Unobtainable: No Constitutional: Reports: no symptoms HEENT: Repors: no symptoms Respiratory: Reports: no symptoms Allergies: Coded Allergies: LATEX (Verified Allergy, Unknown, 11/17/16) Objective Last 24 Hour Vital Signs Date Time Temp Pulse Resp B/P (MAP) Pulse Ox O2 Delivery O2 Flow Rate FiO2 10/28/18 12:00 98.2 75 20 123/71 (88) 94 10/28/18 08:35 98.1 75 20 148/84 (105) 94 10/28/18 08:00 Room Air 10/28/18 04:00 98.1 68 16 144/70 (94) 94 10/28/18 00:00 98.3 75 18 122/67 (85) 91 10/27/18 21:00 Room Air 10/27/18 20:00 99.5 82 20 130/70 (90) 96 10/27/18 16:00 97.6 66 19 118/71 (87) 95 Intake and Output 10/27/18 10/28/18 19:00 07:00 Intake Total 555 ml 1100 ml Balance 555 ml 1100 ml Intake Oral 480 ml 500 ml IV Total 75 ml 600 ml # Voids 4 3 Objective General Appearance: WD/WN HEENT: normocephalic Respiratory/Chest: chest wall non-tender, lungs clear, normal breath sounds Breasts: no masses Cardiovascular: normal peripheral pulses, normal rate Abdomen: normal bowel sounds, soft, non tender Extremities: no cyanosis Skin: no rash Laboratory Tests 10/28/18 06:15: White Blood Count 7.1, Red Blood Count 4.55, Hemoglobin 12.8, Hematocrit 39.8, Mean Corpuscular Volume 87, Mean Corpuscular Hemoglobin 28.1, Mean Corpuscular Hemoglobin Concent 32.1, Red Cell Distribution Width 12.0, Platelet Count 239, Mean Platelet Volume 7.9, Neutrophils (%) (Auto) 39.7L, Lymphocytes (%) (Auto) 47.3H, Monocytes (%) (Auto) 6.8, Eosinophils (%) (Auto) 4.9H, Basophils (%) ( Auto) 1.4, Sodium Level 141, Potassium Level 4.6, Chloride Level 106, Carbon Dioxide Level 29, Anion Gap 6, Blood Urea Nitrogen 11, Creatinine 1.1, Estimat Glomerular Filtration Rate > 60, Glucose Level 98, Calcium Level 8.8 Current Medications Medications (Trade) Dose Ordered Sig/Jackie Route PRN Reason Start Time Stop Time Status Last Admin Dose Admin Acetaminophen (Tylenol) 650 mg Q6H PRN ORAL Mild Pain/Temp > 100.5 10/24/18 06:30 11/23/18 06:29 Amitriptyline HCl (Elavil) 50 mg QHS ORAL 10/24/18 21:00 11/23/18 20:59 10/27/18 21:22 Ciprofloxacin 200 ml @ 200 mls/hr Q12HR IV 10/24/18 09:00 10/31/18 08:59 10/28/18 08:27 Dextrose (Dextrose 50%) 25 ml Q30M PRN IV Hypoglycemia 10/24/18 08:00 11/23/18 07:59 Dextrose (Dextrose 50%) 50 ml Q30M PRN IV Hypoglycemia 10/24/18 08:00 11/23/18 07:59 Gabapentin (Neurontin) 600 mg BID ORAL 10/24/18 09:00 11/23/18 08:59 10/28/18 08:29 Insulin Aspart (NovoLOG) BEFORE MEALS AND HS SUBQ 10/24/18 11:30 11/23/18 11:29 10/27/18 21:32 Iopamidol (Isovue-300 100ml) 100 ml NOW PRN INJ Radiology Procedure 10/23/18 23:00 Lidocaine (Lidoderm 5% PATCH) 1 patch DAILY@1800 TDERMAL 10/26/18 18:00 11/25/18 17:59 10/27/18 17:09 Metronidazole 100 ml @ 100 mls/hr Q12HR IVPB 10/24/18 09:00 10/31/18 08:59 10/28/18 10:17 Morphine Sulfate (Morphine Sulfate) 2 mg Q4H PRN IVP Moderate Pain (Pain Scale 4-6) 10/24/18 08:30 10/31/18 08:29 10/28/18 10:22 Morphine Sulfate (Morphine Sulfate) 4 mg Q4H PRN IVP Severe Pain (Pain Scale 7-10) 10/24/18 06:30 10/31/18 06:29 10/28/18 06:18 Nicotine (Nicoderm) 1 patch Q24H TDERMAL 10/25/18 13:45 11/24/18 13:44 10/27/18 12:31 Ondansetron HCl (Zofran) 4 mg Q4H PRN IVP Nausea & Vomiting 10/24/18 08:00 11/23/18 07:59 10/28/18 10:22 Polyethylene Glycol (Miralax) 17 gm DAILY PRN ORAL Constipation 10/25/18 16:30 11/24/18 16:29 10/25/18 17:36 Sodium Chloride 1,000 ml @ 75 mls/hr [id number] IV 10/24/18 09:00 11/23/18 08:59 10/28/18 06:24 Cate Weiner MD Oct 28, 2018 13:44
[2018-10-28] MEDS ORDERED: Docusate 100mg cap ORAL SCH (13:45)
[2018-10-28] MEDS ORDERED: Lactulose 20gm/30ml UDC ORAL SCH (13:45)
--- NOTE | 2018-10-28 13:49 | Surgery Progress Note ---
Surgery Progress Note Subjective Additional Comments overall improved. c/o right knee pain with walking. otherwise well. tolerating diet. using bathroom Objective Last 24 Hour Vital Signs Date Time Temp Pulse Resp B/P (MAP) Pulse Ox O2 Delivery O2 Flow Rate FiO2 10/28/18 12:00 98.2 75 20 123/71 (88) 94 10/28/18 08:35 98.1 75 20 148/84 (105) 94 10/28/18 08:00 Room Air 10/28/18 04:00 98.1 68 16 144/70 (94) 94 10/28/18 00:00 98.3 75 18 122/67 (85) 91 10/27/18 21:00 Room Air 10/27/18 20:00 99.5 82 20 130/70 (90) 96 10/27/18 16:00 97.6 66 19 118/71 (87) 95 I&O Intake and Output 10/27/18 10/28/18 19:00 07:00 Intake Total 555 ml 1100 ml Balance 555 ml 1100 ml Intake Oral 480 ml 500 ml IV Total 75 ml 600 ml # Voids 4 3 Dressing: other Wound: other Drains: other Cardiovascular: RSR Respiratory: clear Abdomen: soft, non-tender, present bowel sounds, non-distended Extremities: no edema, no tenderness, no cyanosis Laboratory Tests Test 10/28/18 06:15 White Blood Count 7.1 K/UL (4.8-10.8) Red Blood Count 4.55 M/UL (4.20-5.40) Hemoglobin 12.8 G/DL (12.0-16.0) Hematocrit 39.8 % (37.0-47.0) Mean Corpuscular Volume 87 FL (80-99) Mean Corpuscular Hemoglobin 28.1 PG (27.0-31.0) Mean Corpuscular Hemoglobin Concent 32.1 G/DL (32.0-36.0) Red Cell Distribution Width 12.0 % (11.6-14.8) Platelet Count 239 K/UL (150-450) Mean Platelet Volume 7.9 FL (6.5-10.1) Neutrophils (%) (Auto) 39.7 % (45.0-75.0) L Lymphocytes (%) (Auto) 47.3 % (20.0-45.0) H Monocytes (%) (Auto) 6.8 % (1.0-10.0) Eosinophils (%) (Auto) 4.9 % (0.0-3.0) H Basophils (%) (Auto) 1.4 % (0.0-2.0) Sodium Level 141 MMOL/L (136-145) Potassium Level 4.6 MMOL/L (3.5-5.1) Chloride Level 106 MMOL/L (98-107) Carbon Dioxide Level 29 MMOL/L (21-32) Anion Gap 6 mmol/L (5-15) Blood Urea Nitrogen 11 mg/dL (7-18) Creatinine 1.1 MG/DL (0.55-1.30) Estimat Glomerular Filtration Rate > 60 mL/min (>60) Glucose Level 98 MG/DL (74-106) Calcium Level 8.8 MG/DL (8.5-10.1) Plan Problems: (1) Diverticulitis Assessment & Plan: 63F uncomplicated acute diverticulitis. UTI. leukocytosis. abd pain CT with Suspected acute sigmoid diverticulitis mild in degree. No abscess identified. Normal appendix Degenerative changes of the spine 4 cm umbilical hernia containing fat. Status post hysterectomy. Question of thickening of the wall the distal esophagus. Consider endoscopy. Hiatal hernia noted. Reticular densities probably scarring or mild fibrosis at the periphery of the right lung base. -no acute surgical intervention planned -diet as tolerated -IV Abx - transition to oral for d/c -outpatient colonoscopy -right knee 2 view plain films -outpatient ortho f/u and PT -d/c planning - Okay to d/c from surgical standpoint will follow with recs. thank you Lucas Pichardo Oct 28, 2018 13:49
--- NOTE | 2018-10-28 14:19 | NUR ---
RADIOLOGY DEPT RIGHT KNEE X-RAYS PERFORMED.-P.DYE
[2018-10-28] MEDS ORDERED: ACETAMINOPHEN-1 EAC1 ORAL (14:59)
--- NOTE | 2018-10-28 16:24 | Diagnostic Imaging Report ---
Indication: Right knee pain Technique: 2 views of the right knee Comparison: None Findings: There are superior and inferior pole patellar osteophytes. The joint spaces are preserved. There are vascular calcifications Impression: No acute process
[2018-10-28] MEDS ORDERED: NS 275ml ONE (17:09)
[2018-10-28] MEDS ORDERED: Tubing IV Secondary IV ONE (17:09)
--- NOTE | 2018-10-28 17:20 | NUR ---
nurse notes patient refused neurontin tab and lidoderm patch charge nurse rashid middleton rn
--- NOTE | 2018-10-28 17:31 | NUR ---
nurse notes discharge to home obtained, discharge instruction packet handed to patient , discharged instruction instructed to patient all questions answered verbalized understanding [id number] discharged in stable condition with all belongings taken accompanied by family member refused to wheeled by water purifier operator to the parking area, discharged via private car mel middleton
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
[2018-10-30] MEDS ORDERED: Fleet's Mineral Oil Enema RECTAL SCH (09:00)
== END 2018-10-28 17:10 | disposition home or self-care (01) | DRG 244 ==
LOC: EMR 20:35 → 4E 10-24 00:40 → EDBEDREQ 10-24 01:07 → 4E 10-25 20:05
DX: K57.32 Diverticulitis of large intestine without perforation or abscess without bleeding (principal); N39.0 Urinary tract infection, site not specified; E11.9 Type 2 diabetes mellitus without complications; B96.20 Unspecified Escherichia coli [E. coli] as the cause of diseases classified elsewhere; E66.9 Obesity, unspecified; F12.10 Cannabis abuse, uncomplicated; M54.5 Low back pain; F41.9 Anxiety disorder, unspecified; F17.200 Nicotine dependence, unspecified, uncomplicated; Z91.040 Latex allergy status; M16.10 Unilateral primary osteoarthritis, unspecified hip
CPT/HCPCS: 36415; 74177; 80048; 80053; 81003; 82962; 85025; 87086; 87181; 96365; 96367; 96375; 99285; J1815; J2405

== ENCOUNTER 2018-11-22 05:13 | Inpatient (IN) | payer OTHER ==
[2018-11-22] VITALS (7 sets, daily range): BP systolic 123–145; BP diastolic 65–85
[~2018-11-22] VITALS: Ht 154.9 cm; Wt 68.0 kg
[~2018-11-22 05:13] MED LIST changes: +CIPRO500 MG/51 PO; +ZOFRAN4 M1 ORAL
--- NOTE | 2018-11-22 05:29 | NUR ---
ED Nurse Note: pt walked in c/o abd pain, pt states she went to bathroom today and had dark red blood in stool and c/o pain diffused throughout. pt AA&ox4, gcs=15, skin warm and dry, resp even and unlabored on RA, active BS, -n/v/d, VSS, ERMD at the bedside, will cont monitor.
--- NOTE | 2018-11-22 05:38 | Emergency Room Report ---
History of Present Illness General Chief Complaint: Abdominal Pain Source: Patient (Jean Garcia MD) Present Illness HPI This is 63-year-old female with history of chronic pain. She has a history of UTI and diverticulitis and diabetes. She was just admitted here less than a month ago for diverticulitis. She presents with chief complaint of left-sided abdominal pain. Also with dysuria and frequency and urgency. Pain is 10 out of 10. Onset for last 2 days. No nausea no vomiting. Pain medication not helping. Denies any other complaint. Similar symptom in the past. (Jean Garcia MD) Allergies: Coded Allergies: LATEX (Verified Allergy, Unknown, 11/17/16) Patient History Past Medical History: see triage record, old chart reviewed, DM Past Surgical History: other Pertinent Family History: none Social History: Denies: smoking Last Menstrual Period: 2 decades ago Now: No Immunizations: other Reviewed Nursing Documentation: PMH: Agreed; PSxH: Agreed (Jean Garcia MD) Nursing Documentation-PMH Hx Asthma: Yes Hx COPD: No - PNA Hx Diabetes: Yes Hx Cancer: No Hx Gastrointestinal Problems: Yes - Diverticulitis Hx Neurological Problems: Yes - Chronic back pain (Jean Garcia MD) Review of Systems Eye: Denies: eye pain, blurred vision ENT: Denies: ear pain, nose congestion, throat swelling Respiratory: Denies: cough, shortness of breath Cardiovascular: Denies: chest pain, palpitations Gastrointestinal: Reports: abdominal pain; Denies: diarrhea, nausea, vomiting Genitourinary: Reports: dysuria, urgency Musculoskeletal: Denies: back pain, joint pain Skin: Denies: rash Neurological: Denies: headache, numbness Endocrine: Denies: increased thirst, increased urine Hematologic/Lymphatic: Denies: easy bruising All Other Systems: negative except mentioned in HPI (Jean Garcia MD) Physical Exam Vital Signs Date Time Temp Pulse Resp B/P (MAP) Pulse Ox O2 Delivery O2 Flow Rate FiO2 11/22/18 05:23 97.7 90 15 107/56 100 Room Air vitals normal Sp02 EP Interpretation: reviewed, normal General Appearance: well appearing, no apparent distress, alert Head: normocephalic, atraumatic Eyes: bilateral eye PERRL, bilateral eye EOMI ENT: hearing grossly normal, normal pharynx Neck: full range of motion, supple, no meningismus Respiratory: chest non-tender, lungs clear, normal breath sounds Cardiovascular #1: regular rate, rhythm, no murmur Gastrointestinal: normal bowel sounds, no mass, no organomegaly, no bruit, non- distended, tenderness - Left flank Musculoskeletal: back normal, gait/station normal, normal range of motion Psychiatric: anxious - Very anxious Skin: warm/dry (Jean Garcia MD) Medical Decision Making Diagnostic Impression: Primary Impression: Abdominal pain Qualified Codes: R10.32 - Left lower quadrant pain Additional Impressions: Acute colitis UTI (urinary tract infection) ER Course Patient presents with abdominal pain. Differential include diverticulitis, UTI , radicular/refer pain. Could also be constipation. Labs unremarkable. Urinalysis pending. Patient was discharged 2 weeks ago but still has contrast in the colon. I will sign this patient out to Dr. Clarke for final disposition. (Jean Garcia MD) ER Course Please see above note. Patient recently treated with Macrobid. Also second antibiotic for diverticulitis.] Passing blood per rectum. Also continued abdominal pain 04/11. Antibiotics ordered. IV hydration continued. Analgesia also ordered. Admit med. (Gualberto Clarke MD) CT/MRI/US Diagnostic Results CT/MRI/US Diagnostic Results : Imaging Test Ordered: Ct abd and pelvis Impression Read by radiologist. (Jean Garcia MD) CT/MRI/US Diagnostic Results : Imaging Test Ordered: abd/pelvis Impression IMPRESSION: Diverticulosis. No CT evidence for acute diverticulitis. Thickening of the descending and proximal sigmoid colon, nonspecific. Recommend clinical correlation and follow-up to exclude early colitis. No appendicitis. No free fluid or free air. No renal or ureteral calculus. (Gualberto Clarke MD) Last Vital Signs Date Time Temp Pulse Resp B/P (MAP) Pulse Ox O2 Delivery O2 Flow Rate FiO2 11/22/18 05:23 97.7 90 15 107/56 100 Room Air Status: improved (Jean Garcia MD) Status: improved (Gualberto Clarke MD) Disposition: ADMITTED INPATIENT Condition: Serious Referrals: [facility],REFERRING (PCP) Jean Garcia MD Nov 22, 2018 05:38 Gualberto Clarke MD Nov 22, 2018 07:04
[2018-11-22] MEDS ORDERED: HYDROmorphone 1mg/ml Carpuject IVP ONE ×2 (05:45→07:30)
[2018-11-22 05:52] LABS: EOSINOPHILS % (AUTO) 0.4 % (0.0-3.0); HEMATOCRIT 45.8 % (37.0-47.0); HEMOGLOBIN 15.1 G/DL (12.0-16.0); LYMPHOCYTES % (AUTO) 37.3 % (20.0-45.0); MEAN CORPUSCULAR VOLUME 85 FL (80-99); NEUTROPHILS % (AUTO) 58.3 % (45.0-75.0); PLATELET COUNT 226 K/UL (150-450); RED BLOOD COUNT 5.38 M/UL (4.20-5.40); RED CELL DISTRIBUTION WIDTH 12.3 % (11.6-14.8); WHITE BLOOD COUNT 10.1 K/UL (4.8-10.8)
--- NOTE | 2018-11-22 05:56 | NUR ---
ED Nurse Note: pt off to ct
[2018-11-22 06:07] LABS: ANION GAP 12 mmol/L (5-15); BLOOD UREA NITROGEN 11 mg/dL (7-18); CALCIUM 9.8 MG/DL (8.5-10.1); CARBON DIOXIDE 26 MMOL/L (21-32); CHLORIDE 102 MMOL/L (98-107); CREATININE 0.9 MG/DL (0.55-1.30); POTASSIUM 4.3 MMOL/L (3.5-5.1); SODIUM 140 MMOL/L (136-145)
[2018-11-22 06:14] LABS: ALANINE AMINOTRANSFERASE 18 U/L (12-78); ALBUMIN 3.7 G/DL (3.4-5.0); ALKALINE PHOSPHATASE 74 U/L (46-116); ASPARTATE AMINO TRANSFERASE 13 U/L (15-37); BILIRUBIN,TOTAL 0.3 MG/DL (0.2-1.0)
[2018-11-22 06:46] LABS: APPEARANCE,URINE CLEAR; BILIRUBIN, URINE NEGATIVE (NEGATIVE); COLOR,URINE PALE YELLOW; GLUCOSE, URINE (UA) NEGATIVE (NEGATIVE); KETONES,URINE NEGATIVE (NEGATIVE); LEUKOCYTE ESTERASE ,URINE 1+ (NEGATIVE); NITRITE,URINE POSITIVE (NEGATIVE); PH,URINE 7 (4.5-8.0); PROTEIN,URINE NEGATIVE (NEGATIVE); UROBILINOGEN,URINE NORMAL MG/DL (0.0-1.0)
--- NOTE | 2018-11-22 06:58 | Diagnostic Imaging Report ---
EXAM: CT Abdomen and Pelvis Without Intravenous Contrast CLINICAL HISTORY: ABD PAIN TECHNIQUE: Axial computed tomography images of the abdomen and pelvis without intravenous contrast. CTDI is 16.97 mGy and DLP is 812 mGy-cm. One or more of the following dose reduction techniques were used: automated exposure control, adjustment of the mA and/or kV according to patient size, use of iterative reconstruction technique. COMPARISON: 10/23/18 FINDINGS: Lung bases: Bibasilar atelectasis. Mediastinum: Small hiatal hernia. ABDOMEN: Liver: Unremarkable. Gallbladder and bile ducts: Unremarkable. No calcified stones. No ductal dilation. Pancreas: Unremarkable. No ductal dilation. Spleen: Unremarkable. No splenomegaly. Adrenals: Unremarkable. No mass. Kidneys and ureters: No renal calculus. No ureteral calcification. No hydronephrosis. Stomach and bowel: Focal thickening in the proximal sigmoid colon and descending colon, nonspecific. This may reflect under distention. No adjacent inflammatory changes. Diffuse diverticulosis. Thickening of the stomach wall likely due to underdistention. No evidence for bowel obstruction. PELVIS: Appendix: Normal-appearing appendix. Bladder: Mild thickening of the bladder wall, unchanged. No stones. Reproductive: Uterus is surgically absent. ABDOMEN and PELVIS: Intraperitoneal space: No free fluid. No free air. Bones/joints: No acute fracture. No dislocation. Soft tissues: Moderate to large periumbilical hernia containing fat, unchanged. Vasculature: Unremarkable. No abdominal aortic aneurysm. Lymph nodes: Unremarkable. No enlarged lymph nodes. IMPRESSION: Diverticulosis. No CT evidence for acute diverticulitis. Thickening of the descending and proximal sigmoid colon, nonspecific. Recommend clinical correlation and follow-up to exclude early colitis. No appendicitis. No free fluid or free air. No renal or ureteral calculus.
--- NOTE | 2018-11-22 07:11 | NUR ---
ED Nurse Note: report given to RN Harika and endorsed care, pt vss, resp even and unlabored on RA, pt reports pain, ERMD aware.
[2018-11-22] MEDS ORDERED: cefTRIAXone 1 GM in NS 55 ML IVPB ONE (07:15)
--- NOTE | 2018-11-22 07:27 | NUR ---
ED Nurse Note: Pt still in pain. Dr Clarke notified and waiting for new orders.
--- NOTE | 2018-11-22 10:12 | NUR ---
ED Nurse Note: Report given to Maximiliano GALLEGO of Med surg unit.
--- NOTE | 2018-11-22 10:13 | NUR ---
ED Nurse Note: Pt trasnferred to med surg unit with all belonfgings sent. Assisted by PIPER Henley. YOSVANYS.
--- NOTE | 2018-11-22 10:25 | NUR ---
NURSE NOTES: Received patient by mirela in stable condition. Alert and oriented x4. Complain of mild pain on abdomen and pain medication given by ER nurse. Will continue to monitor. Skin intact and dry. IV dressing intact and dry. Belonging checked. Bed lowest position. Call light within reach. Will continue to monitor.
[2018-11-22] MEDS ORDERED: D5 1/2NS 1,000 ML IV SCH (11:06)
[2018-11-22] MEDS ORDERED: LORazepam Inj 2mg/ml 1ml IV PRN (11:15)
[2018-11-22] MEDS ORDERED: Metoclopramide 10mg/2ml Inj IVP PRN (11:15)
[2018-11-22] MEDS ORDERED: Nitroglycerin Subl 0.4mg tab SL PRN (11:15)
[2018-11-22] MEDS ORDERED: Miralax 17gm pkt ORAL PRN (11:15)
[2018-11-22] MEDS ORDERED: Promethazine HCl 25 MG in NS 55 ML IV PRN (11:15)
[2018-11-22] MEDS ORDERED: Promethazine HCl 12.5 MG in NS 55 ML IV PRN (11:15)
[2018-11-22] MEDS ORDERED: Mylanta II UD 30ml ORAL PRN (11:15)
[2018-11-22] MEDS: Morphine Sulfate 2mg/ml Inj(IV/IM USE ONLY) IVP PRN ×2 (12:23→16:25)
--- NOTE | 2018-11-22 15:09 | History & Physical ---
History and Physical History & Physicial Dictated for Int Med-DR haynes no. [id number]. Ritchie Kennedy MD Nov 22, 2018 15:09
--- NOTE | 2018-11-22 16:05 | NUR ---
CASE MANAGEMENT: REVIEW 63/F PRESENTED TO ED FROM HOME CC: ABD PAIN . BLOOD IN STOOL SI: COLITIS . UTI T 97.7 HR 90 RR 15 BP 107/56 SAT 100% ROOM AIR UA: NITRITE + LEUKOCYTE ESTERASE 1+ WBC 10-15 BACTERIA MODERATE IS: NS IVF BOLUS X1 DILAUDID IV X1 ZOFRAN IV X1 CEFTRIAXONE IV X1 PATIENT ADMITTED TO MED/SURG UNIT 11/22/2018 DCP: PATIENT IS FROM HOME
--- NOTE | 2018-11-22 17:00 | NUR ---
NURSE NOTES: Given pain medication as ordered but patient said it is not controlling pain. Spoke to and new order received. Order read back and carried out. Will continue to monitor.
[2018-11-22] MEDS: NovoLOG Insulin Flexpen SUBQ SCH ×2 (17:50→20:44)
--- NOTE | 2018-11-22 19:45 | NUR ---
HAND-OFF: Report given to Dyllan GALLEGO. Patient in stable condition.
--- NOTE | 2018-11-22 19:57 | NUR ---
NURSE NOTES: Received pt in bed, crying and complaining of pain. Informed pt of next pain medication due time and patient calmed down. encouraged breathing exercises. Pt AOx4. Denies of SOB. No acute distress.
[2018-11-22] MEDS: Morphine Sulfate 4mg/ml Inj (IV USE ONLY) IVP PRN (20:32)
[2018-11-22] MEDS: Heparin 5000 units/ml inj SUBQ SCH (20:37)
--- NOTE | 2018-11-22 21:45 | History and Physical Report ---
DATE OF ADMISSION: 11/22/2018 CHIEF COMPLAINT: The patient is a 63-year-old female, who presents with chief complaint of left-sided abdominal pain. HISTORY OF PRESENT ILLNESS: The patient was admitted to [facility] in October 2018 for acute diverticulitis. Please see history and physical and discharge summary dictated at that time. The patient presented to [facility] complaining of a two-day history of left-sided abdominal pain. Pain is located in the left lower quadrant. The patient also had dysuria. The patient also had increased frequency of urination. The patient presented to [facility]. The patient is admitted for urinary tract infection and abdominal pain. REVIEW OF SYSTEMS: CONSTITUTIONAL: The patient denies weight loss or weight gain. The patient denies fevers or chills. HEENT: The patient denies ear or throat pain. The patient denies headache. CARDIOVASCULAR: The patient denies palpitations or chest pain. CHEST: The patient denies wheeze or shortness of breath. ABDOMEN: The patient complains of left lower quadrant pain as above. The patient denies nausea, vomiting, diarrhea, or constipation. GENITOURINARY: The patient complains of dysuria. The patient complains of urinary frequency. The patient denies hematuria. NEUROMUSCULAR: The patient denies seizures or generalized weakness. PAST MEDICAL HISTORY: Significant for: 1. Type 2 diabetes. 2. Chronic low back pain. 3. Obesity. 4. Diverticulosis, history of diverticulitis. 5. Osteoarthritis of the hip. PAST SURGICAL HISTORY: The patient denies. CURRENT MEDICATIONS: 1. Amitriptyline 50 mg p.o. nightly. 2. Gabapentin 800 mg one tablet p.o. three times daily. 3. Glyburide 5 mg p.o. twice daily. 4. Pelham 10/325 mg one tablet p.o. q.4 h. p.r.n. ALLERGIES: To latex. SOCIAL HISTORY: The patient is single and lives alone. The patient admits to tobacco use, one pack per day. The patient denies alcohol use. PHYSICAL EXAMINATION: VITAL SIGNS: Temperature 98.2, respirations 18, pulse 85, and blood pressure 142/80. GENERAL: The patient is a well-developed and well-nourished slightly obese female, in no apparent distress. HEENT: Eyes, pupils are equal and responsive to light and accommodation. Extraocular movements are intact. NECK: Supple without lymphadenopathy. CHEST: Lungs are clear to auscultation bilaterally without wheezes or rales. CARDIOVASCULAR: Regular rate. S1 and S2 normal without murmurs, rubs, gallops. ABDOMEN: There is pain to palpation in the left lower quadrant. Otherwise, soft, nondistended with positive bowel sounds. No evidence of hepatosplenomegaly. Currently, no rebound or guarding noted. EXTREMITIES: Negative for clubbing, cyanosis, or edema. RECTAL/GENITAL: Refused. NEUROLOGIC: Cranial nerves II through XII are grossly intact without focal deficits. Motor strength is 5/5 bilaterally. Deep tendon reflexes are 2+ plantar. LABORATORY STUDIES: WBC 10.3, hemoglobin 15.1, hematocrit 45.8, and platelets 226,000. Sodium 140, potassium 4.3, chloride 102, CO2 26, BUN 11, and creatinine 0.9. Glucose 142. Urinalysis showed positive nitrite with 1+ leukocyte esterase and wbc's 5 to 10 per high-powered field. ASSESSMENT: This is a 63-year-old female with: 1. Abdominal pain, left lower quadrant. 2. Urinary tract infection. 3. Diabetes type 2. 4. Diverticulosis. 5. Chronic low back pain. 6. Osteoarthritis of the hip. TREATMENT: 1. Urinary tract infection. The patient has been started empirically on ceftriaxone. Urine culture is pending. We will await identification and sensitivity for urine culture. 2. Diabetes type 2. The patient has been placed on NovoLog sliding scale. 3. Diverticulosis. The patient is status post hospitalization in October of 2018. A Gastroenterology consultation has been obtained with Dr. Ky Vaughn. 4. Chronic low back pain. 5. Osteoarthritis of the hip. Ritchie Kennedy M.D. DR: COMFORT JOB#: [id number] CC:
[2018-11-23] VITALS: BP 123/72
[2018-11-23] MEDS: Morphine Sulfate 4mg/ml Inj (IV USE ONLY) IVP PRN ×4 (00:27→22:15)
[2018-11-23 04:00] VITALS: BP 114/60
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
[2018-11-23] MEDS: NovoLOG Insulin Flexpen SUBQ SCH ×4 (06:30→20:27)
[2018-11-23 07:40] LABS: EOSINOPHILS % (AUTO) 2.1 % (0.0-3.0); HEMOGLOBIN 13.5 G/DL (12.0-16.0); LYMPHOCYTES % (AUTO) 44.9 % (20.0-45.0); MEAN CORPUSCULAR VOLUME 86 FL (80-99); PLATELET COUNT 188 K/UL (150-450); RED BLOOD COUNT 4.78 M/UL (4.20-5.40); RED CELL DISTRIBUTION WIDTH 12.2 % (11.6-14.8); WHITE BLOOD COUNT 8.7 K/UL (4.8-10.8)
--- NOTE | 2018-11-23 07:56 | NUR ---
NURSE NOTES: Received report from Dyllan GALLEGO. Patient is awake alert and oriented x4, no acute distress noted. Reporting "terrible pain" in abdomen, radiating to back, patient was medicated early in morning. Will medicate per order when pain medication is due, patient in agreement. IVF running per order. Side rails upx2, bed low and locked, call light in reach. Will continue to monitor.
[2018-11-23 08:00] VITALS: BP 127/81
[2018-11-23 08:17] LABS: ALANINE AMINOTRANSFERASE 16 U/L (12-78); ALBUMIN 3.1 G/DL (3.4-5.0); ALBUMIN/GLOBULIN RATIO 0.9 (1.0-2.7); ALKALINE PHOSPHATASE 66 U/L (46-116); AMYLASE 80 U/L (25-115); ANION GAP 11 mmol/L (5-15); ASPARTATE AMINO TRANSFERASE 13 U/L (15-37); BILIRUBIN,TOTAL 0.4 MG/DL (0.2-1.0); BLOOD UREA NITROGEN 6 mg/dL (7-18); CARBON DIOXIDE 27 MMOL/L (21-32); CHLORIDE 107 MMOL/L (98-107); CREATININE 0.8 MG/DL (0.55-1.30); POTASSIUM 3.7 MMOL/L (3.5-5.1); SODIUM 144 MMOL/L (136-145)
[2018-11-23] MEDS: cefTRIAXone 1 GM in D5W 55 ML IVPB SCH (08:53)
[2018-11-23] MEDS: Pantoprazole Inj IV SCH (08:53)
[2018-11-23] MEDS: Heparin 5000 units/ml inj SUBQ SCH ×2 (08:54→20:23)
[2018-11-23 12:00] VITALS: BP 128/73
--- NOTE | 2018-11-23 15:16 | Internal Med Progress Note ---
Subjective Date of Service: Nov 23, 2018 Physician Name Ritchie Kennedy Attending Physician Joni Mckoy MD Current Medications Medications (Trade) Dose Ordered Sig/Jackie Route PRN Reason Start Time Stop Time Status Last Admin Dose Admin Acetaminophen (Tylenol) 650 mg Q4H PRN ORAL fever 11/22/18 11:15 12/22/18 11:14 Al Hydroxide/Mg Hydroxide (Mylanta II) 30 ml Q6H PRN ORAL dyspepsia 11/22/18 11:15 12/22/18 11:14 Ceftriaxone Sodium 1 gm/ Dextrose 55 ml @ 110 mls/hr Q24H IVPB 11/23/18 09:00 11/30/18 08:59 11/23/18 08:53 Dextrose (Dextrose 50%) 25 ml Q30M PRN IV Hypoglycemia 11/22/18 15:15 12/22/18 15:14 Dextrose (Dextrose 50%) 50 ml Q30M PRN IV Hypoglycemia 11/22/18 15:15 12/22/18 15:14 Diphenhydramine HCl (Benadryl) 25 mg Q6H PRN ORAL Itching/Pruritis 11/22/18 11:15 12/22/18 11:14 Heparin Sodium (Porcine) (Heparin 5000 units/ml) 5,000 units EVERY 12 HOURS SUBQ 11/22/18 21:00 12/22/18 20:59 11/23/18 08:54 Insulin Aspart (NovoLOG) BEFORE MEALS AND HS SUBQ 11/22/18 16:30 12/22/18 16:29 11/22/18 17:50 Lidocaine (Lidoderm 5% PATCH) 1 patch Q24H TDERMAL 11/22/18 18:00 12/22/18 17:59 11/22/18 17:50 Lorazepam (Ativan 2mg/ml 1ml) 1 mg Q4H PRN IV agitation 11/22/18 11:15 11/29/18 11:14 Metoclopramide HCl (Reglan) 10 mg Q6H PRN IVP severe nausea 11/22/18 11:15 12/22/18 11:14 11/23/18 04:21 Morphine Sulfate (Morphine Sulfate) 4 mg Q4H PRN IVP Severe Pain (Pain Scale 7-10) 11/22/18 17:00 11/29/18 16:59 11/23/18 08:55 Nicotine (Nicoderm) 1 patch Q24H TDERMAL 11/22/18 18:00 12/22/18 17:59 11/22/18 17:49 Nitroglycerin (Ntg) 0.4 mg Q5M X 3 DOSES PRN SL Prn Chest Pain 11/22/18 11:15 12/22/18 11:14 Ondansetron HCl (Zofran) 4 mg Q6H PRN IVP Nausea & Vomiting 11/22/18 11:15 12/22/18 11:14 11/23/18 10:47 Pantoprazole (Protonix) 40 mg DAILY IV 11/23/18 09:00 12/23/18 08:59 11/23/18 08:53 Polyethylene Glycol (Miralax) 17 gm HSPRN PRN ORAL Constipation 11/22/18 11:15 12/22/18 11:14 Promethazine HCl (Phenergan) 25 mg Q6H PRN IM refractory N/V 11/22/18 11:45 12/22/18 11:44 Sodium Chloride 1,000 ml @ 75 mls/hr [id number] IV 11/22/18 17:30 12/22/18 17:29 11/22/18 17:48 Temazepam (Restoril) 15 mg HSPRN PRN ORAL Insomnia 11/22/18 11:15 11/29/18 11:14 Allergies: Coded Allergies: LATEX (Verified Allergy, Unknown, 11/17/16) ROS Limited/Unobtainable: No Constitutional: Reports: no symptoms HEENT: Reports: no symptoms Cardiovascular: Reports: no symptoms Respiratory: Reports: no symptoms Gastrointestinal/Abdominal: Reports: abdominal pain Genitourinary: Reports: no symptoms Neurologic/Psychiatric: Reports: no symptoms Subjective 63 YO F admitted with abdominal pain. Now UTI. Cover for Int Shawn-DR Mckoy Objective Last Vital Signs Date Time Temp Pulse Resp B/P (MAP) Pulse Ox O2 Delivery O2 Flow Rate FiO2 11/23/18 12:00 98.7 61 20 128/73 (91) 98 11/22/18 21:00 Room Air Laboratory Tests Test 11/23/18 05:34 White Blood Count 8.7 K/UL (4.8-10.8) Red Blood Count 4.78 M/UL (4.20-5.40) Hemoglobin 13.5 G/DL (12.0-16.0) Hematocrit 41.0 % (37.0-47.0) Mean Corpuscular Volume 86 FL (80-99) Mean Corpuscular Hemoglobin 28.2 PG (27.0-31.0) Mean Corpuscular Hemoglobin Concent 32.9 G/DL (32.0-36.0) Red Cell Distribution Width 12.2 % (11.6-14.8) Platelet Count 188 K/UL (150-450) Mean Platelet Volume 9.2 FL (6.5-10.1) Neutrophils (%) (Auto) 48.0 % (45.0-75.0) Lymphocytes (%) (Auto) 44.9 % (20.0-45.0) Monocytes (%) (Auto) 4.0 % (1.0-10.0) Eosinophils (%) (Auto) 2.1 % (0.0-3.0) Basophils (%) (Auto) 1.0 % (0.0-2.0) Activated Partial Thromboplast Time 30 SEC (23-33) Sodium Level 144 MMOL/L (136-145) Potassium Level 3.7 MMOL/L (3.5-5.1) Chloride Level 107 MMOL/L (98-107) Carbon Dioxide Level 27 MMOL/L (21-32) Anion Gap 11 mmol/L (5-15) Blood Urea Nitrogen 6 mg/dL (7-18) L Creatinine 0.8 MG/DL (0.55-1.30) Estimat Glomerular Filtration Rate > 60 mL/min (>60) Glucose Level 86 MG/DL (74-106) Calcium Level 9.0 MG/DL (8.5-10.1) Total Bilirubin 0.4 MG/DL (0.2-1.0) Aspartate Amino Transf (AST/SGOT) 13 U/L (15-37) L Alanine Aminotransferase (ALT/SGPT) 16 U/L (12-78) Alkaline Phosphatase 66 U/L (46-116) Total Protein 6.4 G/DL (6.4-8.2) Albumin 3.1 G/DL (3.4-5.0) L Globulin 3.3 g/dL Albumin/Globulin Ratio 0.9 (1.0-2.7) L Amylase Level 80 U/L (25-115) Lipase 123 U/L (73-393) Microbiology Date/Time Source Procedure Growth Status 11/22/18 05:30 Urine,Clean Catch Urine Culture - Preliminary Gram Negative Kelvin Resulted Intake and Output 11/22/18 11/23/18 19:00 07:00 Intake Total 1430 ml 1305 ml Balance 1430 ml 1305 ml Intake Oral 340 ml 480 ml IV Total 1090 ml 825 ml # Voids 9 Objective PHYSICAL EXAMINATION: GENERAL: The patient is a well-developed and well-nourished slightly obese female, in no apparent distress. HEENT: Eyes, pupils are equal and responsive to light and accommodation. Extraocular movements are intact. NECK: Supple without lymphadenopathy. CHEST: Lungs are clear to auscultation bilaterally without wheezes or rales. CARDIOVASCULAR: Regular rate. S1 and S2 normal without murmurs, rubs, gallops. ABDOMEN: There is pain to palpation in the left lower quadrant. Otherwise, soft, nondistended with positive bowel sounds. No evidence of hepatosplenomegaly. Currently, no rebound or guarding noted. EXTREMITIES: Negative for clubbing, cyanosis, or edema. RECTAL/GENITAL: Refused. NEUROLOGIC: Cranial nerves II through XII are grossly intact without focal deficits. Motor strength is 5/5 bilaterally. Deep tendon reflexes are 2+ plantar. Assessment/Plan Assessment/Plan ASSESSMENT: This is a 63-year-old female with: 1. Abdominal pain, left lower quadrant. 2. Urinary tract infection. 3. Diabetes type 2. 4. Diverticulosis. 5. Chronic low back pain. 6. Osteoarthritis of the hip. TREATMENT: 1. Urinary tract infection - Gram neg kelvin. The patient has been started empirically on ceftriaxone. Urine culture is pending=await identification and sensitivity for urine culture. 2. Diabetes type 2. The patient has been placed on NovoLog sliding scale. 3. Diverticulosis. The patient is status post hospitalization in October of 2018. A Gastroenterology consultation has been obtained with Dr. Ky Vaughn. 4. Chronic low back pain. 5. Osteoarthritis of the hip. Ritchie Kennedy MD Nov 23, 2018 15:16
--- NOTE | 2018-11-23 15:49 | NUR ---
CASE MANAGEMENT: REVIEW 11/23/2018 SI:COLITIS. UTI. T 98.7 HR 61 RR 20 B/P 128/73 SATS 98% ON RA BUN 6 AST 13 IS: PROTONIX IV QD CEFTRIAXONE IV Q24H NICODERM TDERMAL Q24H IVF @ 75 mL/HR MED/SURG STATUS PLAN OF CARE: IV ANTIBx
[2018-11-23 16:00] VITALS: BP 141/81
--- NOTE | 2018-11-23 18:00 | NUR ---
NURSE NOTES: Patient reporting less pain throughout shift. Had episode of emesis x1. Nausea relieved with Zofran. In stable condition.
--- NOTE | 2018-11-23 19:21 | NUR ---
HAND-OFF: Report given to Dyllan GALLEGO. Patient is in stable condition.
--- NOTE | 2018-11-23 19:43 | General Progress Note ---
Assessment/Plan Assessment/Plan Assessment - Recurrent (L) sided abd pain - recent h/o diverticulitis - (L) sided colitis on CT - UTI Recommendations - check C Diff - IVF - Abx - Follow exam Subjective Allergies: Coded Allergies: LATEX (Verified Allergy, Unknown, 11/17/16) Subjective less abd pain still with nausea vomited x 1 Objective Last 24 Hour Vital Signs Date Time Temp Pulse Resp B/P (MAP) Pulse Ox O2 Delivery O2 Flow Rate FiO2 11/23/18 16:00 98.3 69 20 141/81 (101) 98 11/23/18 12:00 98.7 61 20 128/73 (91) 98 11/23/18 09:00 Room Air 11/23/18 08:00 98.3 62 20 127/81 (96) 96 11/23/18 04:00 97.5 75 18 114/60 (78) 92 11/23/18 00:00 97.1 70 18 123/72 (89) 93 11/22/18 21:00 Room Air 11/22/18 20:00 98.3 71 18 145/85 (105) 93 Intake and Output 11/22/18 11/23/18 19:00 07:00 Intake Total 1430 ml 1380 ml Balance 1430 ml 1380 ml Intake Oral 340 ml 480 ml IV Total 1090 ml 900 ml # Voids 9 Laboratory Tests 11/23/18 05:34: White Blood Count 8.7, Red Blood Count 4.78, Hemoglobin 13.5, Hematocrit 41.0, Mean Corpuscular Volume 86, Mean Corpuscular Hemoglobin 28.2, Mean Corpuscular Hemoglobin Concent 32.9, Red Cell Distribution Width 12.2, Platelet Count 188, Mean Platelet Volume 9.2, Neutrophils (%) (Auto) 48.0, Lymphocytes (%) (Auto) 44.9, Monocytes (%) (Auto) 4.0, Eosinophils (%) (Auto) 2.1, Basophils (%) (Auto ) 1.0, Activated Partial Thromboplast Time 30, Sodium Level 144, Potassium Level 3.7, Chloride Level 107, Carbon Dioxide Level 27, Anion Gap 11, Blood Urea Nitrogen 6L, Creatinine 0.8, Estimat Glomerular Filtration Rate > 60, Glucose Level 86, Calcium Level 9.0, Total Bilirubin 0.4, Aspartate Amino Transf (AST/SGOT) 13L, Alanine Aminotransferase (ALT/SGPT) 16, Alkaline Phosphatase 66, Total Protein 6.4, Albumin 3.1L, Globulin 3.3, Albumin/Globulin Ratio 0.9L, Amylase Level 80, Lipase 123 Height (Feet): 5 Height (Inches): 1.00 Weight (Pounds): 150 Objective Obese AA woman NCAT supple CTA RR abd soft, less L sided TTP no edema Alcira Angel MD Nov 23, 2018 19:42
[2018-11-23 20:00] VITALS: BP 136/82
--- NOTE | 2018-11-23 20:40 | NUR ---
NURSE NOTES: Patient in bed awake and oriented. VSS. 310 abdominal pain noted at this time. Accucheck done with sliding scale insulin given. Needs attended. Due meds given. No signs of distress noted. Bed in low position. Call light within reach. In stable condition.
[2018-11-24] VITALS: BP 137/79
[2018-11-24 04:00] VITALS: BP 124/78
[2018-11-24] MEDS: NovoLOG Insulin Flexpen SUBQ SCH ×4 (05:40→20:33)
[2018-11-24 07:52] LABS: EOSINOPHILS % (AUTO) 2.1 % (0.0-3.0); HEMATOCRIT 43.4 % (37.0-47.0); HEMOGLOBIN 14.6 G/DL (12.0-16.0); LYMPHOCYTES % (AUTO) 39.5 % (20.0-45.0); MEAN CORPUSCULAR VOLUME 86 FL (80-99); MONOCYTES % (AUTO) 5.1 % (1.0-10.0); NEUTROPHILS % (AUTO) 52.3 % (45.0-75.0); PLATELET COUNT 180 K/UL (150-450); RED BLOOD COUNT 5.06 M/UL (4.20-5.40); WHITE BLOOD COUNT 8.3 K/UL (4.8-10.8)
--- NOTE | 2018-11-24 07:57 | NUR ---
NURSE NOTES: Received report from Dyllan GALLEGO. Patient is awake alert and oriented x4, no acute distress noted. Reporting abdominal pain, will medicate per order. Patient ambulating steadily in hallway. IV running per order. Will continue to monitor.
[2018-11-24 08:00] VITALS: BP 125/89
--- NOTE | 2018-11-24 08:00 | NUR ---
Received call from Nakia in Microbiology. Patient is positive for VRE of the rectum. Contact isolation implemented. Charge nurse notified.
[2018-11-24 08:34] LABS: ANION GAP 11 mmol/L (5-15); BLOOD UREA NITROGEN 6 mg/dL (7-18); CALCIUM 9.2 MG/DL (8.5-10.1); CARBON DIOXIDE 27 MMOL/L (21-32); CHLORIDE 105 MMOL/L (98-107); CREATININE 0.8 MG/DL (0.55-1.30); POTASSIUM 3.6 MMOL/L (3.5-5.1); SODIUM 143 MMOL/L (136-145)
--- NOTE | 2018-11-24 09:30 | NUR ---
*-* INSURANCE *-* ALL CLINICALS, REVIEWS AND INTERQUAL FAXED TO: [employer]: TAMAR P:[phone] F:[phone] TR# [id number]
[2018-11-24] MEDS: Pantoprazole Inj IV SCH (09:31)
[2018-11-24] MEDS: Morphine Sulfate 4mg/ml Inj (IV USE ONLY) IVP PRN ×3 (09:31→21:33)
[2018-11-24] MEDS: cefTRIAXone 1 GM in D5W 55 ML IVPB SCH (09:31)
[2018-11-24] MEDS: Heparin 5000 units/ml inj SUBQ SCH ×2 (09:33→21:34)
[2018-11-24 12:00] VITALS: BP 142/88
--- NOTE | 2018-11-24 12:20 | GI Progress Note ---
Assessment/Plan Problems: (1) Diverticulitis ICD Codes: K57.92 - Diverticulitis of intestine, part unspecified, without perforation or abscess without bleeding SNOMED: 453075285 (2) Marijuana abuse ICD Codes: F12.10 - Cannabis abuse, uncomplicated SNOMED: 54506807 (3) Abdominal pain of unknown etiology ICD Codes: R10.9 - Unspecified abdominal pain SNOMED: 608717945 (4) Abdominal pain ICD Codes: R10.9 - Unspecified abdominal pain SNOMED: 58714413 Qualifiers: Qualified Codes: R10.32 - Left lower quadrant pain (5) Anxiety ICD Codes: F41.9 - Anxiety disorder, unspecified SNOMED: 82420413 Status: unchanged Status Narrative Discussed with Dr. Vaughn Assessment/Plan History of diverticulitis Approximately 1 month ago Has complaint of recent hematochezia Hold colonoscopy at this time given recent diverticulitis, will need a colonoscopy one month from discharge date Maintain clear liquid diet for today, advance as tolerated prn transfusions Pain management ppi zofran prn follow labs The patient was seen and examined at bedside and all new and available data was reviewed in the patients chart. I agree with the above findings, impression and plan. (Patient seen earlier today. Signature stamp does not reflect patient encounter time.). - Ky Vaughn MD Subjective Subjective Still has complaint of abdominal pain Objective Last 24 Hour Vital Signs Date Time Temp Pulse Resp B/P (MAP) Pulse Ox O2 Delivery O2 Flow Rate FiO2 11/24/18 08:00 98.4 77 18 125/89 (101) 100 11/24/18 04:00 98.2 73 18 124/78 (93) 99 11/24/18 00:00 97.5 72 18 137/79 (98) 99 11/23/18 21:00 Room Air 11/23/18 20:00 98.1 77 18 136/82 (100) 97 11/23/18 16:00 98.3 69 20 141/81 (101) 98 Intake and Output 11/23/18 11/24/18 19:00 07:00 Intake Total 575 ml 600 ml Output Total 60 ml Balance 515 ml 600 ml Intake Oral 500 ml 600 ml IV Total 75 ml Output Emesis 60 ml # Voids 3 Laboratory Tests Test 11/24/18 05:33 White Blood Count 8.3 K/UL (4.8-10.8) Red Blood Count 5.06 M/UL (4.20-5.40) Hemoglobin 14.6 G/DL (12.0-16.0) Hematocrit 43.4 % (37.0-47.0) Mean Corpuscular Volume 86 FL (80-99) Mean Corpuscular Hemoglobin 28.8 PG (27.0-31.0) Mean Corpuscular Hemoglobin Concent 33.5 G/DL (32.0-36.0) Red Cell Distribution Width 12.0 % (11.6-14.8) Platelet Count 180 K/UL (150-450) Mean Platelet Volume 8.8 FL (6.5-10.1) Neutrophils (%) (Auto) 52.3 % (45.0-75.0) Lymphocytes (%) (Auto) 39.5 % (20.0-45.0) Monocytes (%) (Auto) 5.1 % (1.0-10.0) Eosinophils (%) (Auto) 2.1 % (0.0-3.0) Basophils (%) (Auto) 1.0 % (0.0-2.0) Sodium Level 143 MMOL/L (136-145) Potassium Level 3.6 MMOL/L (3.5-5.1) Chloride Level 105 MMOL/L (98-107) Carbon Dioxide Level 27 MMOL/L (21-32) Anion Gap 11 mmol/L (5-15) Blood Urea Nitrogen 6 mg/dL (7-18) L Creatinine 0.8 MG/DL (0.55-1.30) Estimat Glomerular Filtration Rate > 60 mL/min (>60) Glucose Level 77 MG/DL (74-106) Calcium Level 9.2 MG/DL (8.5-10.1) Height (Feet): 5 Height (Inches): 1.00 Weight (Pounds): 150 General Appearance: WD/WN, no apparent distress, alert, overweight Cardiovascular: normal rate Respiratory/Chest: normal breath sounds, no respiratory distress Abdominal Exam: normal bowel sounds, non tender, soft Extremities: normal range of motion, non-tender Sheryl Garcia NP Nov 24, 2018 12:20
--- NOTE | 2018-11-24 12:53 | NUR ---
CASE MANAGEMENT:REVIEW 11/24/18 SI: DIVERTICULITIS. ABDOMINAL PAIN 98.3 76 18 142/88 100% ON RA IS: IV PROTONIX QD IV ROCEPHIN Q24 IVF@75/HR HEPARIN SQ Q12 NICODERM PATCH Q24 IV MORPHINE Q4HRS PRN : MED/SURG STATUS 3 EAST PLAN: PAIN MGMT POSSIBLE COLONOSCOPY TOMORROW
--- NOTE | 2018-11-24 13:30 | NUR ---
NURSE NOTES: Patient transferred to 416 bed 1. Report given to Agnieszka GALLEGO. All belongings checked at bedside with second RN.
--- NOTE | 2018-11-24 13:35 | NUR ---
NURSE NOTES: patient was transferred from via hospital bed accompanied with nurse. received report from LASHONDA Clarke. patient alert, verbally responsive. no respiratory distress noted. belonging checked and counted with LASHONDA Clarke and patient. IV on LAC 22g intact. ambulatory. no skin issues. will continue to monitor.
[2018-11-24 16:00] VITALS: BP 135/60
--- NOTE | 2018-11-24 18:09 | Internal Med Progress Note ---
Subjective Date of Service: Nov 24, 2018 Physician Name Ritchie Kennedy Attending Physician Joni Mckoy MD Current Medications Medications (Trade) Dose Ordered Sig/Jackie Route PRN Reason Start Time Stop Time Status Last Admin Dose Admin Acetaminophen (Tylenol) 650 mg Q4H PRN ORAL fever 11/22/18 11:15 12/22/18 11:14 Al Hydroxide/Mg Hydroxide (Mylanta II) 30 ml Q6H PRN ORAL dyspepsia 11/22/18 11:15 12/22/18 11:14 Ceftriaxone Sodium 1 gm/ Dextrose 55 ml @ 110 mls/hr Q24H IVPB 11/23/18 09:00 11/30/18 08:59 11/24/18 09:31 Dextrose (Dextrose 50%) 25 ml Q30M PRN IV Hypoglycemia 11/22/18 15:15 12/22/18 15:14 Dextrose (Dextrose 50%) 50 ml Q30M PRN IV Hypoglycemia 11/22/18 15:15 12/22/18 15:14 Diphenhydramine HCl (Benadryl) 25 mg Q6H PRN ORAL Itching/Pruritis 11/22/18 11:15 12/22/18 11:14 Heparin Sodium (Porcine) (Heparin 5000 units/ml) 5,000 units EVERY 12 HOURS SUBQ 11/22/18 21:00 12/22/18 20:59 11/24/18 09:33 Insulin Aspart (NovoLOG) BEFORE MEALS AND HS SUBQ 11/22/18 16:30 12/22/18 16:29 11/24/18 17:02 Lidocaine (Lidoderm 5% PATCH) 1 patch Q24H TDERMAL 11/22/18 18:00 12/22/18 17:59 11/24/18 17:40 Lorazepam (Ativan 2mg/ml 1ml) 1 mg Q4H PRN IV agitation 11/22/18 11:15 11/29/18 11:14 Metoclopramide HCl (Reglan) 10 mg Q6H PRN IVP severe nausea 11/22/18 11:15 12/22/18 11:14 11/23/18 04:21 Morphine Sulfate (Morphine Sulfate) 4 mg Q4H PRN IVP Severe Pain (Pain Scale 7-10) 11/22/18 17:00 11/29/18 16:59 11/24/18 15:30 Nicotine (Nicoderm) 1 patch Q24H TDERMAL 11/22/18 18:00 12/22/18 17:59 11/23/18 18:13 Nitroglycerin (Ntg) 0.4 mg Q5M X 3 DOSES PRN SL Prn Chest Pain 11/22/18 11:15 12/22/18 11:14 Ondansetron HCl (Zofran) 4 mg Q6H PRN IVP Nausea & Vomiting 11/22/18 11:15 12/22/18 11:14 11/24/18 15:36 Pantoprazole (Protonix) 40 mg DAILY IV 11/23/18 09:00 12/23/18 08:59 11/24/18 09:31 Polyethylene Glycol (Miralax) 17 gm HSPRN PRN ORAL Constipation 11/22/18 11:15 12/22/18 11:14 Promethazine HCl (Phenergan) 25 mg Q6H PRN IM refractory N/V 11/22/18 11:45 12/22/18 11:44 Sodium Chloride 1,000 ml @ 75 mls/hr [id number] IV 11/22/18 17:30 12/22/18 17:29 11/24/18 12:34 Temazepam (Restoril) 15 mg HSPRN PRN ORAL Insomnia 11/22/18 11:15 11/29/18 11:14 11/24/18 03:15 Allergies: Coded Allergies: LATEX (Verified Allergy, Unknown, 11/17/16) ROS Limited/Unobtainable: No Constitutional: Reports: no symptoms HEENT: Reports: no symptoms Cardiovascular: Reports: no symptoms Respiratory: Reports: no symptoms Gastrointestinal/Abdominal: Reports: abdominal pain Genitourinary: Reports: no symptoms Neurologic/Psychiatric: Reports: no symptoms Subjective 63 YO F admitted with abdominal pain. Now UTI. Cover for Int Shawn-DR Mckoy Objective Last Vital Signs Date Time Temp Pulse Resp B/P (MAP) Pulse Ox O2 Delivery O2 Flow Rate FiO2 11/24/18 16:00 98.5 65 18 135/60 (85) 96 11/24/18 09:00 Room Air Laboratory Tests Test 11/24/18 05:33 White Blood Count 8.3 K/UL (4.8-10.8) Red Blood Count 5.06 M/UL (4.20-5.40) Hemoglobin 14.6 G/DL (12.0-16.0) Hematocrit 43.4 % (37.0-47.0) Mean Corpuscular Volume 86 FL (80-99) Mean Corpuscular Hemoglobin 28.8 PG (27.0-31.0) Mean Corpuscular Hemoglobin Concent 33.5 G/DL (32.0-36.0) Red Cell Distribution Width 12.0 % (11.6-14.8) Platelet Count 180 K/UL (150-450) Mean Platelet Volume 8.8 FL (6.5-10.1) Neutrophils (%) (Auto) 52.3 % (45.0-75.0) Lymphocytes (%) (Auto) 39.5 % (20.0-45.0) Monocytes (%) (Auto) 5.1 % (1.0-10.0) Eosinophils (%) (Auto) 2.1 % (0.0-3.0) Basophils (%) (Auto) 1.0 % (0.0-2.0) Sodium Level 143 MMOL/L (136-145) Potassium Level 3.6 MMOL/L (3.5-5.1) Chloride Level 105 MMOL/L (98-107) Carbon Dioxide Level 27 MMOL/L (21-32) Anion Gap 11 mmol/L (5-15) Blood Urea Nitrogen 6 mg/dL (7-18) L Creatinine 0.8 MG/DL (0.55-1.30) Estimat Glomerular Filtration Rate > 60 mL/min (>60) Glucose Level 77 MG/DL (74-106) Calcium Level 9.2 MG/DL (8.5-10.1) Microbiology Date/Time Source Procedure Growth Status 11/22/18 16:10 Nasal Nares MRSA Culture - Final NO METHICILLIN RESISTANT STAPH AUREUS... Complete 11/22/18 05:30 Urine,Clean Catch Urine Culture - Final Escherichia Coli Complete 11/22/18 16:10 Rectum VRE Culture - Final Enterococcus Faecalis - Vre Complete 11/22/18 16:10 Rectum - Final NO CARBAPENEM-RESISTANT ENTEROBACTERI... Complete Intake and Output 11/23/18 11/24/18 19:00 07:00 Intake Total 575 ml 600 ml Output Total 60 ml Balance 515 ml 600 ml Intake Oral 500 ml 600 ml IV Total 75 ml Output Emesis 60 ml # Voids 3 Objective PHYSICAL EXAMINATION: GENERAL: The patient is a well-developed and well-nourished slightly obese female, in no apparent distress. HEENT: Eyes, pupils are equal and responsive to light and accommodation. Extraocular movements are intact. NECK: Supple without lymphadenopathy. CHEST: Lungs are clear to auscultation bilaterally without wheezes or rales. CARDIOVASCULAR: Regular rate. S1 and S2 normal without murmurs, rubs, gallops. ABDOMEN: There is pain to palpation in the left lower quadrant. Otherwise, soft, nondistended with positive bowel sounds. No evidence of hepatosplenomegaly. Currently, no rebound or guarding noted. EXTREMITIES: Negative for clubbing, cyanosis, or edema. RECTAL/GENITAL: Refused. NEUROLOGIC: Cranial nerves II through XII are grossly intact without focal deficits. Motor strength is 5/5 bilaterally. Deep tendon reflexes are 2+ plantar. Assessment/Plan Assessment/Plan ASSESSMENT: This is a 63-year-old female with: 1. Abdominal pain, left lower quadrant. 2. Urinary tract infection=E. Coli 3. Diabetes type 2. 4. Diverticulosis. 5. Chronic low back pain. 6. Osteoarthritis of the hip. TREATMENT: 1. Urinary tract infection - E.Coli. Continue ceftriaxone. 2. Diabetes type 2. The patient has been placed on NovoLog sliding scale. 3. Diverticulosis. The patient is status post hospitalization in October of 2018. A Gastroenterology consultation has been obtained with Dr. Ky Vaughn. 4. Chronic low back pain. 5. Osteoarthritis of the hip. Ritchie Kennedy MD Nov 24, 2018 18:09
--- NOTE | 2018-11-24 19:29 | NUR ---
HAND-OFF: Report given to LASHONDA Hinojosa.
--- NOTE | 2018-11-24 19:30 | NUR ---
NURSE NOTES: Patient in bed, alert and oriented x4, with complaints of pain on abdomen. Will medicate as ordered. Instructed the use of call light. Call light and needs in reach. Bed in lowest position, lock engaged and alarm on. Will continue to monitor.
[2018-11-24 20:00] VITALS: BP 141/79
--- NOTE | 2018-11-24 20:30 | NUR ---
NURSE NOTES: Offered pain medicine but patient refused at this time. She wants to take it with Zoan. She claims that if she gets pain med without it she feels nauseous.
[2018-11-25] VITALS: BP 133/72
[2018-11-25] MEDS: Morphine Sulfate 4mg/ml Inj (IV USE ONLY) IVP PRN ×2 (03:38→14:29)
[2018-11-25 04:00] VITALS: BP 122/82
[2018-11-25] MEDS: NovoLOG Insulin Flexpen SUBQ SCH ×3 (06:30→16:30)
--- NOTE | 2018-11-25 07:49 | NUR ---
HAND-OFF: Report given to LASHONDA Navarro.
--- NOTE | 2018-11-25 07:50 | NUR ---
NURSE NOTES: Received patient awake alert and oriented, sitting up comfortably in bed. IV at right forearm, 22 gauge, infusing NS @ 75ml/hour. Bed at lowest level with 2 side rails up. Call light within reach. Will continue to monitor.
[2018-11-25 08:00] VITALS: BP 127/75
[2018-11-25] MEDS: Heparin 5000 units/ml inj SUBQ SCH (09:12)
[2018-11-25] MEDS: Pantoprazole Inj IV SCH (09:18)
[2018-11-25] MEDS: cefTRIAXone 1 GM in D5W 55 ML IVPB SCH (09:18)
[2018-11-25 11:24] LABS: ANION GAP 7 mmol/L (5-15); BLOOD UREA NITROGEN 6 mg/dL (7-18); CALCIUM 8.9 MG/DL (8.5-10.1); CARBON DIOXIDE 31 MMOL/L (21-32); CHLORIDE 106 MMOL/L (98-107); POTASSIUM 3.7 MMOL/L (3.5-5.1); SODIUM 143 MMOL/L (136-145)
[2018-11-25 11:28] LABS: BASOPHILS % (AUTO) 1.3 % (0.0-2.0); EOSINOPHILS % (AUTO) 3.3 % (0.0-3.0); HEMATOCRIT 40.6 % (37.0-47.0); HEMOGLOBIN 13.5 G/DL (12.0-16.0); LYMPHOCYTES % (AUTO) 43.5 % (20.0-45.0); MEAN CORPUSCULAR VOLUME 85 FL (80-99); MONOCYTES % (AUTO) 5.9 % (1.0-10.0); PLATELET COUNT 183 K/UL (150-450); RED BLOOD COUNT 4.75 M/UL (4.20-5.40); RED CELL DISTRIBUTION WIDTH 12.2 % (11.6-14.8); WHITE BLOOD COUNT 6.6 K/UL (4.8-10.8)
--- NOTE | 2018-11-25 11:47 | GI Progress Note ---
Assessment/Plan Problems: (1) Diverticulitis ICD Codes: K57.92 - Diverticulitis of intestine, part unspecified, without perforation or abscess without bleeding SNOMED: 825114714 (2) Marijuana abuse ICD Codes: F12.10 - Cannabis abuse, uncomplicated SNOMED: 37292590 (3) Abdominal pain of unknown etiology ICD Codes: R10.9 - Unspecified abdominal pain SNOMED: 301292595 (4) Abdominal pain ICD Codes: R10.9 - Unspecified abdominal pain SNOMED: 16936586 Qualifiers: Qualified Codes: R10.32 - Left lower quadrant pain (5) Anxiety ICD Codes: F41.9 - Anxiety disorder, unspecified SNOMED: 33279456 Status: stable, progressing Status Narrative Discussed with Dr. Vaughn. Assessment/Plan History of diverticulitis Approximately 1 month ago Has complaint of recent hematochezia constipated Hold colonoscopy at this time given recent diverticulitis, will need a colonoscopy one month from discharge date FLD, advance as tolerated prn transfusions Pain management ppi abx zofran prn follow labs The patient was seen and examined at bedside and all new and available data was reviewed in the patients chart. I agree with the above findings, impression and plan. (Patient seen earlier today. Signature stamp does not reflect patient encounter time.). - Ky Vaughn MD Subjective Subjective Still has complaint of abdominal pain Objective Last 24 Hour Vital Signs Date Time Temp Pulse Resp B/P (MAP) Pulse Ox O2 Delivery O2 Flow Rate FiO2 11/25/18 09:00 Room Air 11/25/18 08:00 95.9 64 14 127/75 (92) 97 11/25/18 04:00 97.5 67 17 122/82 (95) 97 11/25/18 00:00 98.4 64 15 133/72 (92) 99 11/24/18 21:00 Room Air 11/24/18 20:00 97.7 68 17 141/79 (99) 95 11/24/18 16:00 98.5 65 18 135/60 (85) 96 11/24/18 12:00 98.3 76 18 142/88 (106) 100 Intake and Output 11/24/18 11/25/18 19:00 07:00 Intake Total 1330 ml 435 ml Balance 1330 ml 435 ml Intake Oral 880 ml 360 ml IV Total 450 ml 75 ml # Voids 4 3 Laboratory Tests Test 11/25/18 11:00 White Blood Count 6.6 K/UL (4.8-10.8) Red Blood Count 4.75 M/UL (4.20-5.40) Hemoglobin 13.5 G/DL (12.0-16.0) Hematocrit 40.6 % (37.0-47.0) Mean Corpuscular Volume 85 FL (80-99) Mean Corpuscular Hemoglobin 28.4 PG (27.0-31.0) Mean Corpuscular Hemoglobin Concent 33.2 G/DL (32.0-36.0) Red Cell Distribution Width 12.2 % (11.6-14.8) Platelet Count 183 K/UL (150-450) Mean Platelet Volume 9.3 FL (6.5-10.1) Neutrophils (%) (Auto) 46.0 % (45.0-75.0) Lymphocytes (%) (Auto) 43.5 % (20.0-45.0) Monocytes (%) (Auto) 5.9 % (1.0-10.0) Eosinophils (%) (Auto) 3.3 % (0.0-3.0) H Basophils (%) (Auto) 1.3 % (0.0-2.0) Sodium Level 143 MMOL/L (136-145) Potassium Level 3.7 MMOL/L (3.5-5.1) Chloride Level 106 MMOL/L (98-107) Carbon Dioxide Level 31 MMOL/L (21-32) Anion Gap 7 mmol/L (5-15) Blood Urea Nitrogen 6 mg/dL (7-18) L Creatinine 1.0 MG/DL (0.55-1.30) Estimat Glomerular Filtration Rate > 60 mL/min (>60) Glucose Level 105 MG/DL (74-106) Calcium Level 8.9 MG/DL (8.5-10.1) Height (Feet): 5 Height (Inches): 1.00 Weight (Pounds): 150 General Appearance: WD/WN, no apparent distress, alert Cardiovascular: normal rate Respiratory/Chest: normal breath sounds, no respiratory distress Abdominal Exam: normal bowel sounds, non tender, soft Extremities: normal range of motion, non-tender Sheryl Garcia STRAIGHT TOOTH GEAR GENERATOR OPERATOR Nov 25, 2018 11:47
[2018-11-25 12:00] VITALS: BP 135/81
--- NOTE | 2018-11-25 15:03 | NUR ---
OPERATIONS MANAGEMENT TRAINEEFABRICATION MANAGER SI:DIVERTICULOSIS . ABDOMINAL PAIN VS: BP 127/75, P 64, T 95.9, RR 14, SpO2 97 EOS% 3.3, BUN 6 IS:PROTONIX 40mg IV CEFTRIAXONE 55ml IVPB HEPARIN SUBQ MORPHINE 4mg NS IV x 1L ZOFRAN 4mg IVP MED/SURG STATUS
[2018-11-25 16:00] VITALS: BP 119/78
--- NOTE | 2018-11-25 16:15 | NUR ---
*-* INSURANCE *-* UPDATED REVIEWS FAXED FAXED TO: [facility]: TAMAR P:[phone] F:[phone] TR# [id number]
--- NOTE | 2018-11-25 17:11 | NUR ---
NURSE NOTES: Patient discharged. IV and ID band removed. Belongings accounted for. Discharged instructions given, discussed and patient verbalized understanding. Escorted from facility without incident or injury.
--- NOTE | 2018-11-25 18:12 | Internal Med Progress Note ---
Subjective Date of Service: Nov 25, 2018 Physician Name Ritchie Kennedy Attending Physician Joni Mckoy MD Allergies: Coded Allergies: LATEX (Verified Allergy, Unknown, 11/17/16) ROS Limited/Unobtainable: No Constitutional: Reports: no symptoms HEENT: Reports: no symptoms Cardiovascular: Reports: no symptoms Respiratory: Reports: no symptoms Gastrointestinal/Abdominal: Reports: no symptoms Genitourinary: Reports: no symptoms Neurologic/Psychiatric: Reports: no symptoms Subjective 63 YO F admitted with abdominal pain. Now UTI. Cover for Int Med-DR Mckoy Objective Last Vital Signs Date Time Temp Pulse Resp B/P (MAP) Pulse Ox O2 Delivery O2 Flow Rate FiO2 11/25/18 16:00 98.7 67 18 119/78 (92) 97 11/25/18 09:00 Room Air Laboratory Tests Test 11/25/18 11:00 White Blood Count 6.6 K/UL (4.8-10.8) Red Blood Count 4.75 M/UL (4.20-5.40) Hemoglobin 13.5 G/DL (12.0-16.0) Hematocrit 40.6 % (37.0-47.0) Mean Corpuscular Volume 85 FL (80-99) Mean Corpuscular Hemoglobin 28.4 PG (27.0-31.0) Mean Corpuscular Hemoglobin Concent 33.2 G/DL (32.0-36.0) Red Cell Distribution Width 12.2 % (11.6-14.8) Platelet Count 183 K/UL (150-450) Mean Platelet Volume 9.3 FL (6.5-10.1) Neutrophils (%) (Auto) 46.0 % (45.0-75.0) Lymphocytes (%) (Auto) 43.5 % (20.0-45.0) Monocytes (%) (Auto) 5.9 % (1.0-10.0) Eosinophils (%) (Auto) 3.3 % (0.0-3.0) H Basophils (%) (Auto) 1.3 % (0.0-2.0) Sodium Level 143 MMOL/L (136-145) Potassium Level 3.7 MMOL/L (3.5-5.1) Chloride Level 106 MMOL/L (98-107) Carbon Dioxide Level 31 MMOL/L (21-32) Anion Gap 7 mmol/L (5-15) Blood Urea Nitrogen 6 mg/dL (7-18) L Creatinine 1.0 MG/DL (0.55-1.30) Estimat Glomerular Filtration Rate > 60 mL/min (>60) Glucose Level 105 MG/DL (74-106) Calcium Level 8.9 MG/DL (8.5-10.1) Intake and Output 11/24/18 11/25/18 19:00 07:00 Intake Total 1330 ml 435 ml Balance 1330 ml 435 ml Intake Oral 880 ml 360 ml IV Total 450 ml 75 ml # Voids 4 3 Objective PHYSICAL EXAMINATION: GENERAL: The patient is a well-developed and well-nourished slightly obese female, in no apparent distress. HEENT: Eyes, pupils are equal and responsive to light and accommodation. Extraocular movements are intact. NECK: Supple without lymphadenopathy. CHEST: Lungs are clear to auscultation bilaterally without wheezes or rales. CARDIOVASCULAR: Regular rate. S1 and S2 normal without murmurs, rubs, gallops. ABDOMEN: There is pain to palpation in the left lower quadrant. Otherwise, soft, nondistended with positive bowel sounds. No evidence of hepatosplenomegaly. Currently, no rebound or guarding noted. EXTREMITIES: Negative for clubbing, cyanosis, or edema. RECTAL/GENITAL: Refused. NEUROLOGIC: Cranial nerves II through XII are grossly intact without focal deficits. Motor strength is 5/5 bilaterally. Deep tendon reflexes are 2+ plantar. Assessment/Plan Assessment/Plan ASSESSMENT: This is a 63-year-old female with: 1. Abdominal pain, left lower quadrant. 2. Urinary tract infection=E. Coli 3. Diabetes type 2. 4. Diverticulosis. 5. Chronic low back pain. 6. Osteoarthritis of the hip. TREATMENT: 1. Urinary tract infection - E.Coli. Continue ceftriaxone. 2. Diabetes type 2. The patient has been placed on NovoLog sliding scale. 3. Diverticulosis. The patient is status post hospitalization in October of 2018. A Gastroenterology consultation has been obtained with Dr. Ky Vaughn. 4. Chronic low back pain. 5. Osteoarthritis of the hip. 6. D/C home today 11/25/18 Ritchie Kennedy MD Nov 25, 2018 18:12
--- NOTE | 2018-11-25 19:13 | Diagnostic Imaging Report ---
Indication:Abdominal pain Technique: Grayscale and duplex Doppler imaging of the abdomen performed. Comparison: None Findings: The liver is unremarkable. The gallbladder is unremarkable. The demonstrated part of the pancreas, aorta and IVC show no abnormalities. Aorta is largely obscured. Both kidneys appear unremarkable. The spleen is normal in size. There is no biliary ductal dilatation identified. Doppler evaluation of the main portal vein shows patency. There is no ascites. No hydronephrosis seen. CBD is 3 mm. Impression: No acute findings.
--- NOTE | 2018-11-26 13:59 | Discharge Summary ---
Discharge Summary Discharge Summary _ DATE OF ADMISSION: 11/22/2018 DATE OF DISCHARGE: 11/25/[address] Mckoy REASON FOR ADMISSION: 63 years old female with past medical history of COPD/asthma, hypertension, diverticulitis, cervical lumbar stenosis, degenerative disc disease osteoarthritis presented to emergency department with chief complaint of left- sided abdominal pain dysuria frequency and urgency. Pain reported this 10 out of 10 for the last 2-day. Patient has a history of chronic pain. Pain medication did not relieve her pain. She denied nausea vomiting she denied fever and chills patient reported similar symptoms in the past upon evaluation vital signs were stable. Laboratory workup revealed no leukocytosis stable hemoglobin hematocrit stable electrolytes and renal parameters. Urinalysis revealed evidence of UTI. CT of the abdomen and pelvis revealed diverticulosis no CT evidence of acute diverticulitis. Thickening of the descending and proximal sigmoid colon nonspecific possible early colitis. No appendicitis. No free fluid or free air. Patient was admitted for further management. CONSULTANTS: GI specialist dr. Angel HOSPITAL COURSE: Patient admitted to medical surgical floor and started on IV hydration and empiric antibiotic . Pain management was addressed. GI consult was requested. GI specialist closely followed. Abdominal ultrasound revealed no acute findings. No fevers, no leukocytosis , stable LFT . Bowel regimen instituted. No diarrhea . Patient was continued on empiric antibiotics. Patient was complaining of recent hematochezia. Per GI specialist, colonoscopy was on hold at this time , given recent diverticulitis. Hemoglobin and hematocrit remained stable. Patient will need colonoscopy in 1 month after discharge. Patient started on clear liquid diet. Antiemetic were on board as needed. Diet was advanced as tolerated . Patient was able to tolerate diet . Patient was continued on PPI. CT scan revealed evidence of possible left-sided colitis, however no fever, no leukocytosis, no diarrhea, stable laboratory values, stable hemodynamic status , stable hemoglobin and hematocrit. Urine culture revealed E. coli. Patient was continue on antibiotic. DVT and GI prophylaxis provided. Blood sugar was managed with sliding scale of insulin. Antitussive provided as needed. Supplemental oxygen was on board as needed to keep pulse oximetry above 92%. Pulse oximetry was stable on room air. Patient started on nicotine patch. Patient was counseled on smoking cessation. Patient clinically stabilized and was ready for discharge home. FINAL DIAGNOSES: Recurrent left-sided /left lower quadrant , abdominal pain Recent history of diverticulitis Left-sided colitis - on CT scan- UTI with E. coli Diabetes mellitus type 2 Osteoarthritis of the hip Chronic low back pain DISCHARGE MEDICATIONS: See Medication Reconciliation list. DISCHARGE INSTRUCTIONS: Patient was discharged home. Follow up with primary care provider in one week. Patient will need colonoscopy in 1 month. I have been assigned to dictate discharge summary for this account. I was not involved in the patient's management. Alejandrina Robledo NP Nov 26, 2018 13:59
== END 2018-11-25 17:10 | disposition home or self-care (01) | DRG 249 ==
LOC: EMR 05:30 → EDBEDREQ 09:57 → 3E 10:02 → 4E 11-24 13:15
DX: K52.9 Noninfective gastroenteritis and colitis, unspecified (principal); M48.02 Spinal stenosis, cervical region; N39.0 Urinary tract infection, site not specified; E11.9 Type 2 diabetes mellitus without complications; B96.20 Unspecified Escherichia coli [E. coli] as the cause of diseases classified elsewhere; F17.200 Nicotine dependence, unspecified, uncomplicated; F12.10 Cannabis abuse, uncomplicated; G89.29 Other chronic pain; M54.5 Low back pain; I10 Essential (primary) hypertension; J44.9 Chronic obstructive pulmonary disease, unspecified; M16.10 Unilateral primary osteoarthritis, unspecified hip; K57.90 Diverticulosis of intestine, part unspecified, without perforation or abscess without bleeding; F41.9 Anxiety disorder, unspecified
CPT/HCPCS: 36415; 74176; 76700; 80048; 80053; 81003; 82150; 82962; 83690; 85025; 85730; 87081; 87086; 87181; 96361; 96365; 96375; 96376; 99285; J1815; J2405; J2765

== ENCOUNTER 2018-12-07 20:02 | Emergency (ER) | payer OTHER ==
[~2018-12-07] VITALS: Ht 154.9 cm; Wt 72.6 kg
--- NOTE | 2018-12-07 20:09 | NUR ---
called pt, pt not in the lobby.
--- NOTE | 2018-12-07 20:18 | NUR ---
ED Nurse Note: called pt, not in the lobby.
[2018-12-07 20:39] VITALS: BP 122/73
--- NOTE | 2018-12-07 20:39 | NUR ---
ED Nurse Note: Pt arrived ED from home, c/o abdominal pain today. Pt is A/O X4. Vital signs stable at this time, waiting for orders.
[2018-12-07 21:09] LABS: APPEARANCE,URINE CLEAR; BILIRUBIN, URINE NEGATIVE (NEGATIVE); COLOR,URINE PALE YELLOW; GLUCOSE, URINE (UA) NEGATIVE (NEGATIVE); KETONES,URINE NEGATIVE (NEGATIVE); LEUKOCYTE ESTERASE ,URINE 1+ (NEGATIVE); NITRITE,URINE NEGATIVE (NEGATIVE); PH,URINE 5 (4.5-8.0); PROTEIN,URINE NEGATIVE (NEGATIVE); UROBILINOGEN,URINE NORMAL MG/DL (0.0-1.0)
[2018-12-07] MEDS ORDERED: Morphine Sulfate 2mg/ml Inj(IV/IM USE ONLY) IM ONE (21:15)
[2018-12-07] MEDS ORDERED: Dicyclomine HCl 10mg/5ml oral soln ORAL ONE (21:15)
[2018-12-07] MEDS ORDERED: BISACODYL5 MG ORAL (21:29)
[2018-12-07] MEDS ORDERED: DICYCLOMINE HCL10 MG PO (21:29)
[2018-12-07 21:45] VITALS: BP 122/73
--- NOTE | 2018-12-07 21:45 | NUR ---
ER DISCHARGE NOTE: Patient is cleared to be discharged per Dr Hebert. Pain meds given as ordered. Pt is A/O x 4 on room air with stable vital signs. Pt was given D/C and prescription instructions and was able to verbalize understanding. Pt's ID band removed. Pt is able to ambulate with steady gait and took all belongings. Accompanied by her family.
[2018-12-07] MEDS ORDERED: Fluconazole 100mg tab ORAL ONE (22:00)
--- NOTE | 2018-12-08 00:08 | Emergency Room Report ---
History of Present Illness General Chief Complaint: Abdominal Pain Source: Patient Present Illness HPI Patient is a 63-year-old female who presented after increased abdominal pain. Patient had recently been discharged to the hospital with diagnosis of colitis. She reports having some increased pain. Patient states she did not was not discharged with any medications. She denies any vomiting. She reports having recent urinary tract infection and states that she had been having some increased burning with urination. She denies any vomiting. She reports having worsening pain with eating. Patient previously been diagnosed with colitis on previous CT imaging which showed some early colitis to the transverse and descending colon. Patient had been previously advised to follow-up for colonoscopy in 1 month. Allergies: Coded Allergies: LATEX (Verified Allergy, Unknown, 12/07/18) Patient History Past Medical History: see triage record Now: No Reviewed Nursing Documentation: PMH: Agreed; PSxH: Agreed Nursing Documentation-PMH Past Medical History: No History, Except For Hx Cardiac Problems: Yes Hx Hypertension: Yes Hx Asthma: Yes Hx COPD: Yes Hx Diabetes: Yes Hx Cancer: No Hx Gastrointestinal Problems: Yes Hx Neurological Problems: No Review of Systems All Other Systems: negative except mentioned in HPI Physical Exam Vital Signs Date Time Temp Pulse Resp B/P (MAP) Pulse Ox O2 Delivery O2 Flow Rate FiO2 12/07/18 20:31 98.8 88 16 120/78 98 Room Air Sp02 EP Interpretation: reviewed, normal General Appearance: normal inspection, well appearing, no apparent distress, alert, GCS 15 Head: atraumatic ENT: normal ENT inspection, hearing grossly normal, normal voice Neck: normal inspection, full range of motion, supple, no bony tend Respiratory: normal inspection, lungs clear, normal breath sounds, no respiratory distress, no retraction, no wheezing Cardiovascular #1: regular rate, rhythm, no edema Gastrointestinal: normal inspection, normal bowel sounds, soft, no guarding, no hernia, tenderness - no guarding Genitourinary: no CVA tenderness Musculoskeletal: normal inspection, back normal, normal range of motion Neurologic: normal inspection, alert, oriented x3, responsive, speech normal Psychiatric: normal inspection, judgement/insight normal, mood/affect normal Skin: normal inspection, normal color, no rash Medical Decision Making Diagnostic Impression: Primary Impression: Colitis ER Course Patient presented for abdominal pain. Differential diagnoses included ischemic bowel, appendicitis, perforated viscus, abdominal aortic aneurysm, inferior myocardial infarction, viral gastroenteritis among others. Patient has a benign exam and does not appear to require any further imaging or laboratory testing at this time. Patient was noted to have known colitis. She is advised to follow-up with GI for reevaluation. She is given prescription for medications for symptomatic relief of pain. She was advised to avoid dairy products as well as to maintain a bland diet. She was advised to return if she had any worsening pain persistent vomiting or other concerns. She was advised smoking cessation. Labs Test 12/07/18 21:04 Urine Color Pale yellow Urine Appearance Clear Urine pH 5 (4.5-8.0) Urine Specific [place] 1.010 (1.005-1.035) Urine Protein Negative (NEGATIVE) Urine Glucose (UA) Negative (NEGATIVE) Urine Ketones Negative (NEGATIVE) Urine Blood Negative (NEGATIVE) Urine Nitrite Negative (NEGATIVE) Urine Bilirubin Negative (NEGATIVE) Urine Urobilinogen Normal MG/DL (0.0-1.0) Urine Leukocyte Esterase 1+ (NEGATIVE) Urine RBC 0 /HPF (0 - 2) Urine WBC 0-2 /HPF (0 - 2) Urine Squamous Epithelial Cells Occasional /LPF Urine Bacteria Occasional /HPF (NONE) Last Vital Signs Date Time Temp Pulse Resp B/P (MAP) Pulse Ox O2 Delivery O2 Flow Rate FiO2 12/07/18 21:45 98.2 83 16 122/73 98 Room Air Status: improved Disposition: HOME, SELF-CARE Condition: Stable Scripts Bisacodyl* (DULCOLAX*) 5 Mg Tablet. 5 MG ORAL DAILY, #10 TAB 0 Refills Prov: Maciol Hebert MD 12/07/18 Dicyclomine Hcl* (DICYCLOMINE HCL*) 10 Mg Capsule 10 MG PO QID, #30 CAP Prov: Maicol Hebert MD 12/07/18 Patient Instructions: Abdominal Pain, Adult Additional Instructions: Follow up with gastroenterology for colonoscopy as previously directed. Do not smoke. Return if any fever, persistent vomiting or other problems. Maicol Hebert MD Dec 08, 2018 00:08
--- NOTE | 2018-12-08 14:37 | Diagnostic Imaging Report ---
Indication: Abdominal pain Technique: Supine view of the abdomen Comparison: 04/07/2009 Findings: Normal bowel gas pattern. No masses or unusual calcifications. There are degenerative changes of the lumbar spine and of the bilateral hip Impression: No acute process
== END 2018-12-07 21:45 | disposition home or self-care (01) ==
LOC: EMR 21:00
DX: K52.9 Noninfective gastroenteritis and colitis, unspecified (principal); I10 Essential (primary) hypertension; J44.9 Chronic obstructive pulmonary disease, unspecified; Z91.040 Latex allergy status
CPT/HCPCS: 74018; 81003; 96372; 99283; J2270

== ENCOUNTER 2019-06-13 17:23 | Emergency (ER) | payer OTHER ==
[~2019-06-13] VITALS: Ht 154.9 cm; Wt 76.7 kg
[~2019-06-13 17:23] MED LIST changes: +DICYCLOMINE HCL10 MG PO
--- NOTE | 2019-06-13 17:33 | NUR ---
ED Nurse Note:pt. came with c/o vaginal discharge and itchiness
[2019-06-13 17:37] VITALS: BP 130/85
[2019-06-13] MEDS ORDERED: Fluconazole 100mg tab ORAL ONE (18:15)
--- NOTE | 2019-06-13 18:42 | Emergency Room Report ---
History of Present Illness General Chief Complaint: Female Urogenital Problems Source: Patient Present Illness HPI 63-year-old female presents to the emergency department with 2 complaints 1 of which is a vaginal yeast infection. Patient reports that she vaginal rash with some white discharge. Patient denies dysuria, urinary frequency, urgency or hematuria. Patient denies suspicion of UTI and is requesting treatment for yeast infection only. She states she responds best to a regimen of several Diflucan pills po followed by one day vaginal cream applied a week later. Patient is also reporting she has been having intermittent cramping and loose stools consistent with previous episodes of colitis. Patient reports early symptoms and would like to have her Bentyl medication which typically resolves her symptoms. Patient states her last episode of colitis was in December. Patient denies fevers, chills, blood in the stool or black tarry stools. Patient denies passing stools. Patient denies pain at this time but states she has intermittent cramping that is 6/10 in severity just prior to loose stools. Patient is also requesting refill of her pain medication and states that she just ran out and does not have an appointment with her doctor until next week. She denies any other symptoms at this time denies any other aggravating relieving factors. Allergies: Coded Allergies: LATEX (Verified Allergy, Unknown, 12/07/18) Patient History Past Medical History: see triage record Past Surgical History: none Pertinent Family History: none Now: No Reviewed Nursing Documentation: PMH: Agreed; PSxH: Agreed Nursing Documentation-PMH Hx Cardiac Problems: Yes Hx Hypertension: Yes Hx Asthma: Yes Hx COPD: Yes Hx Diabetes: Yes Hx Cancer: No Hx Gastrointestinal Problems: Yes Hx Neurological Problems: No Review of Systems All Other Systems: negative except mentioned in HPI Physical Exam Vital Signs Date Time Temp Pulse Resp B/P (MAP) Pulse Ox O2 Delivery O2 Flow Rate FiO2 06/13/19 17:26 98.4 80 18 130/85 (100) 100 Room Air Sp02 EP Interpretation: reviewed, normal General Appearance: no apparent distress, alert, GCS 15, non-toxic Head: normocephalic, atraumatic Eyes: bilateral eye normal inspection, bilateral eye PERRL ENT: hearing grossly normal, normal voice Neck: full range of motion Respiratory: lungs clear, normal breath sounds, speaking full sentences Cardiovascular #1: regular rate, rhythm Gastrointestinal: normal bowel sounds, non tender, soft, non-distended, no guarding Rectal: deferred Genitourinary: normal inspection, no CVA tenderness, deferred - Pelvic deferred by pt. Musculoskeletal: back normal, gait/station normal, normal range of motion, non- tender Neurologic: alert, oriented x3, responsive, motor strength/tone normal, sensory intact, speech normal, grossly normal Psychiatric: judgement/insight normal Lymphatic: no adenopathy Medical Decision Making PA Attestation Dr. Galloway Is my supervising Physician whom patient management has been discussed with. Diagnostic Impression: Primary Impression: Yeast vaginitis Additional Impressions: Request for narcotic pain medication History of colitis ER Course 63-year-old female presents to the emergency department with 2 complaints 1 of which is a vaginal yeast infection. Patient reports that she vaginal rash with some white discharge. Patient denies dysuria, urinary frequency, urgency or hematuria. Patient denies suspicion of UTI and is requesting treatment for yeast infection only. She states she responds best to a regimen of several Diflucan pills po followed by one day vaginal cream applied a week later. Patient is also reporting she has been having intermittent cramping and loose stools consistent with previous episodes of colitis. Patient reports early symptoms and would like to have her Bentyl medication which typically resolves her symptoms. Patient states her last episode of colitis was in December. Patient denies fevers, chills, blood in the stool or black tarry stools. Patient denies passing stools. Patient denies pain at this time but states she has intermittent cramping that is 6/10 in severity just prior to loose stools. Patient is also requesting refill of her pain medication and states that she just ran out and does not have an appointment with her doctor until next week. She denies any other symptoms at this time denies any other aggravating relieving factors. Ddx considered but are not limited to UTi , Pyelo, STI, Stone, Cystitis, vaginal laceration, vaginitis, Colitis exacerbation, viral GE, diarrhea, drug- seeking just to name a few. Vital signs: are WNL, pt. is afebrile H& PE are most consistent with: Yeast Vaginitis , and mild early exacerbation of colitis without complication or evidence of significant infection. ORDERS: - Pt. declines UA and wants to be treated clinically. ED INTERVENTIONS: -Diflucan PO -I do not identify an emergent condition at this time. With current presentation , pt. is stable for close outpatient follow up and conservative treatment. D/ w pt. to return promptly to ED with worsening or new symptoms.- Pt. verbalizes' understanding and agreement with proposed treatment plan. DISCHARGE: At this time pt. is stable for d/c to home. Will provide printed patient care instructions, and any necessary prescriptions. Care plan and follow up instructions have been discussed with the patient prior to discharge. discussed with the patient prior to discharge. Last Vital Signs Date Time Temp Pulse Resp B/P (MAP) Pulse Ox O2 Delivery O2 Flow Rate FiO2 06/13/19 17:37 98.4 89 18 130/85 100 Room Air Disposition: HOME, SELF-CARE Condition: Stable Scripts Tramadol Hcl* (ULTRAM*) 50 Mg Tablet 50 MG ORAL Q8HR PRN for For Pain, #3 TAB 0 Refills Prov: Jolly Belle 06/13/19 Dicyclomine Hcl* (DICYCLOMINE HCL*) 10 Mg Capsule 10 MG ORAL TID, #9 CAP Prov: Jolly Belle 06/13/19 Miconazole Nitrate (Monistat 1) 1 Each Kit 1 EACH VG ONCE, #1 PACK Prov: Jolly Belle 06/13/19 Fluconazole (FLUCONAZOLE) 100 Mg Tablet 100 MG ORAL DAILY, #7 TAB 0 Refills Prov: Jolly Belle 06/13/19 Referrals: [facility],REFERRING (PCP) Patient Instructions: Medicine Refill at the Emergency Department, Vaginal Yeast Infection, Adult Additional Instructions: Take medications as directed.---Do not drink alcohol, drive, or operate heavy machinery while taking Tramadol as this may cause drowsiness. Follow up with a Primary Care Provider in 3-5 days, even if your symptoms have resolved. and for any additional request for narcotic pain medication related to your chronic condition: colitis. Return sooner to ED if new symptoms occur, or current symptoms become worse. - Please note that this Emergency Department Report was dictated using Telly technology software, occasionally this can lead to erroneous entry secondary to interpretation by the dictation equipment. Jolly Belle Jun 13, 2019 18:42
[2019-06-13] MEDS ORDERED: FLUCONAZOLE100 MG ORAL (18:54)
[2019-06-13] MEDS ORDERED: MONISTAT 11 EACH VG (18:54)
[2019-06-13] MEDS ORDERED: DICYCLOMINE HCL10 MG ORAL (18:54)
[2019-06-13] MEDS ORDERED: TRAMADOL HCL50 MG ORAL ×2 (18:54)
--- NOTE | 2019-06-13 19:00 | NUR ---
ER DISCHARGE NOTE: Patient is cleared to be discharged per ERMD, pt is aox4, on room air, with stable vital signs. pt was given dc and prescription instructions, pt was able to verbalize understanding, pt is able to ambulate with steady gait. pt took all belongings.
[2019-06-13 19:06] VITALS: BP 130/85
[2019-06-15] MEDS ORDERED: TRAMADOL HCL50 MG ORAL (20:34)
[2019-06-15] MEDS ORDERED: MONISTAT 744 GM VG (20:34)
== END 2019-06-13 19:08 | disposition home or self-care (01) ==
LOC: EMR 17:54
DX: B37.3 Candidiasis of vulva and vagina (principal); I10 Essential (primary) hypertension; J45.909 Unspecified asthma, uncomplicated; J44.9 Chronic obstructive pulmonary disease, unspecified; E11.9 Type 2 diabetes mellitus without complications; Z91.040 Latex allergy status
CPT/HCPCS: 99282

== ENCOUNTER 2019-06-22 08:21 | Emergency (ER) | payer OTHER ==
[~2019-06-22] VITALS: Ht 154.9 cm; Wt 75.7 kg
[~2019-06-22 08:21] MED LIST changes: +DICYCLOMINE HCL10 MG ORAL; +MONISTAT 11 EACH VG; +MONISTAT 744 GM VG; +TRAMADOL HCL50 MG ORAL
[2019-06-22] MEDS ORDERED: ZOFRAN4 M3 ORAL (08:37)
[2019-06-22 08:45] VITALS: BP 137/89
--- NOTE | 2019-06-22 08:52 | NUR ---
ED Nurse Note: pt presents to the ED c/o cough x3 days with "greenish" phlegm. pt states that she has px with coughing and a history of pneumonia. pt is also c/o of pain with urination but denies seeing any blood. pt's oral temp is 97.9, BP 137/89, HR 89, O2 sat 96% on room air.
[2019-06-22] MEDS ORDERED: Ketorolac 30mg Inj IM ONE (09:00)
[2019-06-22 09:15] LABS: APPEARANCE,URINE CLEAR; BILIRUBIN, URINE NEGATIVE (NEGATIVE); COLOR,URINE PALE YELLOW; GLUCOSE, URINE (UA) NEGATIVE (NEGATIVE); KETONES,URINE NEGATIVE (NEGATIVE); LEUKOCYTE ESTERASE ,URINE 1+ (NEGATIVE); NITRITE,URINE NEGATIVE (NEGATIVE); PH,URINE 5 (4.5-8.0); PROTEIN,URINE NEGATIVE (NEGATIVE); UROBILINOGEN,URINE NORMAL MG/DL (0.0-1.0)
[2019-06-22] MEDS ORDERED: AMOXICILLIN500 MG ORAL (09:58)
[2019-06-22] MEDS ORDERED: PROMETHAZINE-D118 ML ORAL (09:58)
[2019-06-22] MEDS ORDERED: IBUPROFEN600 MG ORAL (09:58)
[2019-06-22 10:02] VITALS: BP 137/89
--- NOTE | 2019-06-22 10:02 | NUR ---
ER DISCHARGE NOTE: Patient is cleared to be discharged per ERMD, pt is aox4, on room air, with stable vital signs. pt was given dc and prescription instructions, pt was able to verbalize understanding, pt id band removed without complications. pt is able to ambulate with steady gait. pt took all belongings.
--- NOTE | 2019-06-22 10:46 | Emergency Room Report ---
History of Present Illness General Chief Complaint: Generalized Weakness Source: Patient Present Illness HPI 63-year-old female presents ED for evaluation. Complaining of cough and congestion and body aches for the last 2 days. States her grandchildren have similar symptoms. Cough is productive with yellowish phlegm. Afebrile in triage. Pain is dull, 9 out of 10, nonradiating. Worse with coughing. Did not receive flu vaccine. Denies recent travel. Denies chest pain or shortness of breath. No other aggravating relieving factors. Denies any other associated symptoms Allergies: Coded Allergies: LATEX (Verified Allergy, Unknown, 12/07/18) Patient History Past Medical History: HTN, asthma Past Surgical History: none Pertinent Family History: none Social History: Denies: smoking, alcohol use, drug use Now: No Immunizations: UTD Reviewed Nursing Documentation: PMH: Agreed; PSxH: Agreed Nursing Documentation-PMH Past Medical History: No History, Except For Hx Cardiac Problems: Yes - cervical, lumbar stenosis; DJD Hx Hypertension: Yes Hx Asthma: Yes Hx COPD: Yes Hx Diabetes: Yes Hx Cancer: No Hx Gastrointestinal Problems: Yes - 'infected colon' Hx Dialysis: No - UTI History Of Psychiatric Problem: No Hx Neurological Problems: No Review of Systems All Other Systems: negative except mentioned in HPI Physical Exam Vital Signs Date Time Temp Pulse Resp B/P (MAP) Pulse Ox O2 Delivery O2 Flow Rate FiO2 06/22/19 08:32 98.6 89 16 137/89 (105) 96 Room Air Sp02 EP Interpretation: reviewed, normal General Appearance: no apparent distress, alert, GCS 15, non-toxic Head: normocephalic, atraumatic Eyes: bilateral eye normal inspection, bilateral eye PERRL ENT: hearing grossly normal, normal pharynx, no angioedema, normal voice Neck: full range of motion, supple/symm/no masses Respiratory: chest non-tender, lungs clear, normal breath sounds, speaking full sentences Cardiovascular #1: regular rate, rhythm, no edema Cardiovascular #2: 2+ carotid (R), 2+ carotid (L), 2+ radial (R), 2+ radial (L) , 2+ dorsalis pedis (R), 2+ dorsalis pedis (L) Gastrointestinal: normal bowel sounds, non tender, soft, non-distended, no guarding, no rebound Rectal: deferred Genitourinary: normal inspection, no CVA tenderness Musculoskeletal: back normal, gait/station normal, normal range of motion, non- tender Neurologic: alert, oriented x3, responsive, motor strength/tone normal, sensory intact, speech normal Psychiatric: judgement/insight normal, memory normal, mood/affect normal, no suicidal/homicidal ideation Reflexes: 3+ bicep (R), 3+ bicep (L), 3+ tricep (R), 3+ tricep (L), 3+ knee (R) , 3+ knee (L) Lymphatic: no adenopathy Medical Decision Making Diagnostic Impression: Primary Impression: Atypical pneumonia Additional Impression: Opioid dependence ER Course Hospital Course 63 yo F presents with bodyaches, cough and congestion Differential diagnoses include: URI, pharyngitis, otitis media, asthma Clinical course Patient placed on stretcher. After initial history, physical exam reveals a female in no acute distress. Bilateral TM unremarkable. No pharyngeal erythema. No tonsillar exudates. No lymphadenopathy. lungs clear. abdomen soft. CXR - no focal consolidation, haziness in both lung barragan UA - negative flu swab negative Presentation consistent with atypical pneumonia. Discussed findings with patient. Will discharge to home with prescription for antibiotics and cough medication Is requesting stronger pain meds after Toradol. Is requesting cough medication with codeine. I reviewed CURES and is documented patient receiving extensive narcotic prescriptions on a monthly basis. Diagnosis - atypical pneumonia, opioid dependence Stable and discharged home with Rx amoxicillin, promethazine/DM. Instructed to followup with PMD. Return to ED if symptoms recur or worsen Labs Test 06/22/19 08:38 Urine Color Pale yellow Urine Appearance Clear Urine pH 5 (4.5-8.0) Urine Specific [place] 1.005 (1.005-1.035) Urine Protein Negative (NEGATIVE) Urine Glucose (UA) Negative (NEGATIVE) Urine Ketones Negative (NEGATIVE) Urine Blood Negative (NEGATIVE) Urine Nitrite Negative (NEGATIVE) Urine Bilirubin Negative (NEGATIVE) Urine Urobilinogen Normal MG/DL (0.0-1.0) Urine Leukocyte Esterase 1+ (NEGATIVE) Urine RBC 0 /HPF (0 - 2) Urine WBC 0-2 /HPF (0 - 2) Urine Squamous Epithelial Cells Occasional /LPF Urine Bacteria Few /HPF (NONE) Chest X-Ray Diagnostic Results Chest X-Ray Diagnostic Results : Chest X-Ray Ordered: Yes # of Views/Limited/Complete: 1 View Indication: Other - cough EP Interpretation: Yes Interpretation: no consolidation, no effusion, no pneumothorax, no acute cardiopulmonary disease Impression: No acute disease Electronically Signed by: Electronically signed by Valentin Lester MD Last Vital Signs Date Time Temp Pulse Resp B/P (MAP) Pulse Ox O2 Delivery O2 Flow Rate FiO2 06/22/19 10:02 98.6 16 137/89 96 Room Air 06/22/19 08:45 89 Status: improved Disposition: HOME, SELF-CARE Condition: Stable Scripts Ibuprofen* (MOTRIN*) 600 Mg Tablet 600 MG ORAL Q8H PRN for For Pain for 7 Days, #30 TAB 0 Refills Prov: Valentin Lester MD 06/22/19 D-Methorphan Hb/Prometh Hcl* (PROMETHAZINE-DM SYRUP*) 118 Ml Syrup 5 ML ORAL Q6H PRN for For Cough, #118 ML 0 Refills Prov: Valentin Lester MD 06/22/19 Amoxicillin* (AMOXIL*) 500 Mg Capsule 500 MG ORAL THREE TIMES A DAY, #21 CAP Prov: Valentin Lester MD 06/22/19 Referrals: NON PHYSICIAN (PCP) Patient Instructions: Community-Acquired Pneumonia, Adult, [id number] Valentin Lester MD Jun 22, 2019 10:46
--- NOTE | 2019-06-22 11:46 | Diagnostic Imaging Report ---
Indication: Cough Technique: One view of the chest Comparison: 09/15/2017 Findings: Less optimal inspiration currently. The heart is upper limits normal in size. Lungs pleural spaces are clear. There is no significant interim change Impression: No acute process
== END 2019-06-22 10:02 | disposition home or self-care (01) ==
LOC: EMR 08:40
DX: J18.9 Pneumonia, unspecified organism (principal); F11.20 Opioid dependence, uncomplicated; I10 Essential (primary) hypertension; J44.9 Chronic obstructive pulmonary disease, unspecified; E11.9 Type 2 diabetes mellitus without complications; M48.02 Spinal stenosis, cervical region; M48.061 Spinal stenosis, lumbar region without neurogenic claudication; M19.90 Unspecified osteoarthritis, unspecified site; Z91.040 Latex allergy status
CPT/HCPCS: 71045; 81003; 86710; 96372; J1885; Z7502; 99283

== ENCOUNTER 2019-10-19 18:38 | Emergency (ER) | payer OTHER ==
[~2019-10-19] VITALS: Ht 154.9 cm; Wt 74.8 kg
[~2019-10-19 18:38] MED LIST changes: +PROMETHAZINE-D118 ML ORAL; +ZOFRAN4 M3 ORAL
--- NOTE | 2019-10-19 18:50 | NUR ---
ED Nurse Note: call for the patient, pt is not in a waiting room
[2019-10-19 19:20] VITALS: BP 120/85
--- NOTE | 2019-10-19 19:20 | NUR ---
ED Nurse Note: Patient presents to ED with neck and shoulder px x 3 days without injury. Patient reports falling x2 days ago in her bathroom, she hit her L hip. AAO x4, VSS at this time, skin is warm tp touch.
--- NOTE | 2019-10-19 20:23 | Emergency Room Report ---
History of Present Illness General Chief Complaint: Multiple Trauma/Fall Source: Patient Present Illness HPI Disclaimer: Please note that this report is being documented using DRAGON technology. This can lead to erroneous entry secondary to incorrect interpretation by the dictating instrument. HPI: 64-year-old female history of diabetes hypertension presents for evaluation of diffuse myalgias, particularly right shoulder pain, syncopal episode and head injury and. States he has been feeling pain in the right shoulder without obvious trauma for the past few days. She had the shoulder surgically repaired for rotator cuff tear over 20 years ago. She reports urinary frequency over the past few days but denies dysuria or hematuria. Worsening body wide myalgias and today while changing her pants in the bathroom had a loss of consciousness falling backward striking her head. Unknown how long she was unconscious but states it was brief. She had a friend bring her to the emergency department. She denies any significant headache but reports significant neck pain or worsening right shoulder pain. She has a history of cervical and lumbar stenosis. Nonoperable. Otherwise denied any prodromal palpitations, chest pain or shortness of breath. She noted a spinning sensation but denied any changes in hearing. No history of vertigo. She has been complaining of some sinus congestion over the past few days as well. PMH: Diabetes, recurrent UTIs PSH: Shoulder repair Allergies: Latex Social Hx: Denies alcohol, tobacco or drug use Allergies: Coded Allergies: LATEX (Verified Allergy, Unknown, 12/07/18) Nursing Documentation-PMH Hx Cardiac Problems: Yes - cervical, lumbar stenosis; DJD Hx Hypertension: Yes Hx Asthma: Yes Hx COPD: Yes Hx Diabetes: Yes Hx Cancer: No Hx Gastrointestinal Problems: Yes - 'infected colon' Hx Dialysis: No - UTI Hx Neurological Problems: No Review of Systems All Other Systems: negative except mentioned in HPI Physical Exam Vital Signs Date Time Temp Pulse Resp B/P (MAP) Pulse Ox O2 Delivery O2 Flow Rate FiO2 10/19/19 19:01 98.6 78 18 120/85 (97) 97 Room Air General: Awake and alert, no acute distress HEENT: NC/AT. EOMI. PERRLA. No nystagmus. Nonicteric sclera. Tympanic membranes are pearly ortiz nonbulging with clear landmarks bilaterally. Mucous membranes are moist. Cardiovascular: RRR. S1 and S2 normal. No murmur appreciated Resp: Normal work of breathing. No cough, wheezing or crackles appreciated Abdomen: Abdomen is soft, nondistended. Nontender Skin: Intact. No abrasions, laceration or rash over the exposed skin MSK: Normal tone and bulk. Moving all extremities. No obvious deformity. Neuro: Awake and alert. Mentating appropriately. Back/Spine: Patient has some tenderness in the midline in the cervical spine with moderate paraspinal tenderness on the right and left over the trapezius. Medical Decision Making Diagnostic Impression: Primary Impression: Myalgia Additional Impressions: Osteoarthritis of right shoulder Urinary tract infection ER Course 54-year-old female presents for evaluation after syncopal episode also complaining of body wide myalgias, weakness, vertigo. Patient is very tangential in her history. Her physical exam does not find major signs of trauma. She does have midline cervical spine tenderness and a hematoma over the occiput. She is concerned she might have a urinary tract infection causing the body wide myalgias and fatigue. Will obtain syncope labs and UA with tox screen as well as CT scan of the head and neck and an x-ray of the right shoulder given her complaints. Laboratory Tests Test 10/19/19 21:20 White Blood Count 9.5 K/UL (4.8-10.8) Red Blood Count 4.81 M/UL (4.20-5.40) Hemoglobin 14.3 G/DL (12.0-16.0) Hematocrit 40.7 % (37.0-47.0) Mean Corpuscular Volume 85 FL (80-99) Mean Corpuscular Hemoglobin 29.7 PG (27.0-31.0) Mean Corpuscular Hemoglobin Concent 35.1 G/DL (32.0-36.0) Red Cell Distribution Width 12.2 % (11.6-14.8) Platelet Count 246 K/UL (150-450) Mean Platelet Volume 8.0 FL (6.5-10.1) Neutrophils (%) (Auto) 44.1 % (45.0-75.0) L Lymphocytes (%) (Auto) 49.4 % (20.0-45.0) H Monocytes (%) (Auto) 2.4 % (1.0-10.0) Eosinophils (%) (Auto) 3.0 % (0.0-3.0) Basophils (%) (Auto) 1.1 % (0.0-2.0) Urine Color Pale yellow Urine Appearance Clear Urine pH 5 (4.5-8.0) Urine Specific [place] 1.010 (1.005-1.035) Urine Protein Negative (NEGATIVE) Urine Glucose (UA) Negative (NEGATIVE) Urine Ketones Negative (NEGATIVE) Urine Blood 1+ (NEGATIVE) H Urine Nitrite Positive (NEGATIVE) H Urine Bilirubin Negative (NEGATIVE) Urine Urobilinogen Normal MG/DL (0.0-1.0) Urine Leukocyte Esterase 1+ (NEGATIVE) H Urine RBC 5-10 /HPF (0 - 2) H Urine WBC 10-15 /HPF (0 - 2) H Urine Squamous Epithelial Cells Few /LPF (NONE/OCC) Urine Bacteria Many /HPF (NONE) H Sodium Level 145 MMOL/L (136-145) Potassium Level 3.6 MMOL/L (3.5-5.1) Chloride Level 108 MMOL/L (98-107) H Carbon Dioxide Level 29 MMOL/L (21-32) Anion Gap 8 mmol/L (5-15) Blood Urea Nitrogen 11 mg/dL (7-18) Creatinine 0.9 MG/DL (0.55-1.30) Estimate Glomerular Filtration Rate > 60 mL/min (>60) Glucose Level 106 MG/DL (74-106) Calcium Level 9.1 MG/DL (8.5-10.1) Total Bilirubin 0.2 MG/DL (0.2-1.0) Aspartate Amino Transferase (AST) 13 U/L (15-37) L Alanine Aminotransferase (ALT) 17 U/L (12-78) Alkaline Phosphatase 83 U/L (46-116) Troponin I 0.000 ng/mL (0.000-0.056) Total Protein 6.7 G/DL (6.4-8.2) Albumin 3.4 G/DL (3.4-5.0) Globulin 3.3 g/dL Albumin/Globulin Ratio 1.0 (1.0-2.7) Urine Opiates Screen Negative (NEGATIVE) Urine Barbiturates Screen Negative (NEGATIVE) Phencyclidine (PCP) Screen Negative (NEGATIVE) Urine Amphetamines Screen Negative (NEGATIVE) Urine Benzodiazepines Screen Negative (NEGATIVE) Urine Cocaine Screen Negative (NEGATIVE) Urine Marijuana (THC) Screen Positive (NEGATIVE) H EKG Diagnostic Results EKG Time: 20:59 Rate: normal Rhythm: NSR ST Segments: no acute changes Other Impression Sinus rhythm, normal axis, normal mental intervals, nonspecific ST segment changes Rhythm Strip Diag. Results Rhythm Strip Time: 20:59 EP Interpretation: yes Rate: 60s Rhythm: NSR, no PVC's, no ectopy Other X-Ray Diagnostic Results Other X-Ray Diagnostic Results : X-Ray ordered: Right shoulder # of Views/Limited Vs Complete: 3 View Indication: Pain EP Interpretation: Yes Interpretation: no dislocation, no soft tissue swelling, no fractures, other - Moderate calcifications and signs of early osteoarthritis Impression: No acute disease Electronically Signed by: Electronically signed by Dr. John Hurd CT/MRI/US Diagnostic Results CT/MRI/US Diagnostic Results : Impression Preliminary Findings Only See Final Report For Complete Findings CT HEAD Without Contrast: There is no acute hemorrhage, infarct, mass, or hydrocephalus. The calvarium is intact. Radiologist: Britni Wakefield MD Study ready at 20:44 and initial results transmitted at 20:53 Preliminary Findings Only See Final Report For Complete Findings CT C SPINE: There is no acute fracture, dislocation, or subluxation of the cervical spine. There is multilevel degenerative disc disease which is most pronounced at C4-C5 and C5-C6. Mild spinal canal stenoses are suspected at these levels. Note is also made of a multinodular thyroid goiter. Radiologist: Britni Wakefield MD Reevaluation Time: 22:30 Last Vital Signs Date Time Temp Pulse Resp B/P (MAP) Pulse Ox O2 Delivery O2 Flow Rate FiO2 10/19/19 19:01 98.6 78 18 120/85 (97) 97 Room Air Reevaluation Impression Labs consistent with a urinary tract infection testing positive for nitrites. She will be treated ceftriaxone and Keflex on an outpatient basis. She also says she gets Diflucan whenever she gets antibiotics due to yeast infections. Will discharge with Motrin, Ortho follow-up, Robaxin and lidocaine patches for the rest of her symptoms. CT imaging is unremarkable. No evidence of acute injury. Patient states he has not been drinking a lot of water and was little bit dehydrated likely causing her syncopal event is not clear whether or not she fully lost consciousness. She can follow-up with orthopedic surgery and her PMD. Discussed reasons to return to the emergency department patient and family. They understand and agree with this treatment plan. Disposition: HOME, SELF-CARE Condition: Stable Scripts Guaifenesin/D-Methorphan Hb/Pe (ROBITUSSIN COUGH-COLD CF LIQ*) 118 Ml Liquid 10 ML ORAL Q8H PRN for FOR COUGH, #118 ML Prov: John Hurd MD 10/19/19 Fluconazole (FLUCONAZOLE) 100 Mg Tablet 100 MG ORAL DAILY, #2 TAB 0 Refills Prov: John Hurd MD 10/19/19 Methocarbamol* (ROBAXIN-750*) 750 Mg Tablet 750 MG PO QID, #28 TAB 0 Refills Prov: John Hurd MD 10/19/19 Lidocaine Patch* (Lidoderm Patch*) 1 Each Adh..patch 1 PATCH TOPIC DAILY, #10 PATCH 0 Refills Patch(es) may remain in place for up to 12 hours in any 24-hour period. Prov: John Hurd MD 10/19/19 Ibuprofen* (MOTRIN*) 600 Mg Tablet 600 MG ORAL Q8H PRN for For Pain, #30 TAB 0 Refills Prov: John Hurd MD 10/19/19 Cephalexin* (KEFLEX*) 500 Mg Capsule 500 MG ORAL EVERY 12 HOURS, #14 CAP 0 Refills Prov: John Hurd MD 10/19/19 John Hurd MD Oct 19, 2019 20:23
[2019-10-19] MEDS ORDERED: Ketorolac 30mg Inj IV ONE (20:30)
--- NOTE | 2019-10-19 20:54 | Diagnostic Imaging Report ---
Indications: Headache and dizziness Technique: Spiral acquisitions obtained through the brain. Angled axial and coronal 5 x 5 mm slices were reconstructed. Total dose length product 1028 mGycm. CTDI vol(s) 53 mGy. Dose reduction achieved using automated exposure control Comparison: None. Findings: No acute intracranial hemorrhage or edema. No mass effect nor midline shift. Normal ortiz-white differentiation. Normal size ventricles and extra axial CSF spaces. Visualized orbits and sinuses are unremarkable. The mastoids are clear Impression: Negative This agrees with the preliminary interpretation provided overnight by [facility] teleradiology service. The CT scanner at [facility] is accredited by the [employer] and the scans are performed using protocols designed to limit radiation exposure to as low as reasonably achievable to attain images of sufficient resolution adequate for diagnostic evaluation.
--- NOTE | 2019-10-19 21:03 | Diagnostic Imaging Report ---
Indication: Neck pain and bilateral shoulder pain Technique: Spiral acquisitions obtained through the cervical spine. No IV contrast utilized. Multiplanar reconstructions were generated. Total dose length product 200 mGycm. CTDIvol(s) 8.4 mGy. Dose reduction achieved using automated exposure control. Comparison: none Findings: There is slight reversal the normal cervical lordosis, otherwise normal bony alignment. No acute fractures. No dislocations. At C4-5, posterior disc bulge/osseous complex and ossification of posterior longitudinal ligament results in moderate spinal stenosis. The neural foramina are preserved. The disc space is preserved. At C5-6, there is mild degenerative disc narrowing. Posterior osteophytes and posterior longitudinal ligament ossification result in mild narrowing spinal canal. There is mild narrowing of the right neural foramen. At C6-7, there is mild degenerative disc narrowing. There is a posterior osteophyte which does not significantly narrow the spinal canal. The neural foramina are preserved. The remaining disc levels, no significant disc bulge or protrusion, spinal stenosis, or neural foraminal stenosis. The thyroid is diffusely enlarged and multinodular with substernal extension. The included extraspinal soft tissues are otherwise unremarkable. Impression: No acute bony trauma Multilevel degenerative changes, as detailed on a level by level basis above the graft enlarged multinodular thyroid This agrees with the preliminary interpretation provided overnight by [facility] service. The CT scanner at [facility] is accredited by the [employer] and the scans are performed using protocols designed to limit radiation exposure to as low as reasonably achievable to attain images of sufficient resolution adequate for diagnostic evaluation.
[2019-10-19 21:34] LABS: APPEARANCE,URINE CLEAR; BILIRUBIN, URINE NEGATIVE (NEGATIVE); COLOR,URINE PALE YELLOW; GLUCOSE, URINE (UA) NEGATIVE (NEGATIVE); KETONES,URINE NEGATIVE (NEGATIVE); LEUKOCYTE ESTERASE ,URINE 1+ (NEGATIVE); NITRITE,URINE POSITIVE (NEGATIVE); PH,URINE 5 (4.5-8.0); PROTEIN,URINE NEGATIVE (NEGATIVE); UROBILINOGEN,URINE NORMAL MG/DL (0.0-1.0)
[2019-10-19 21:38] LABS: BASOPHILS % (AUTO) 1.1 % (0.0-2.0); HEMATOCRIT 40.7 % (37.0-47.0); HEMOGLOBIN 14.3 G/DL (12.0-16.0); LYMPHOCYTES % (AUTO) 49.4 % (20.0-45.0); MEAN CORPUSCULAR VOLUME 85 FL (80-99); MONOCYTES % (AUTO) 2.4 % (1.0-10.0); NEUTROPHILS % (AUTO) 44.1 % (45.0-75.0); PLATELET COUNT 246 K/UL (150-450); RED BLOOD COUNT 4.81 M/UL (4.20-5.40); RED CELL DISTRIBUTION WIDTH 12.2 % (11.6-14.8); WHITE BLOOD COUNT 9.5 K/UL (4.8-10.8)
[2019-10-19 21:43] LABS: ANION GAP 8 mmol/L (5-15); BLOOD UREA NITROGEN 11 mg/dL (7-18); CALCIUM 9.1 MG/DL (8.5-10.1); CARBON DIOXIDE 29 MMOL/L (21-32); CHLORIDE 108 MMOL/L (98-107); CREATININE 0.9 MG/DL (0.55-1.30); POTASSIUM 3.6 MMOL/L (3.5-5.1); SODIUM 145 MMOL/L (136-145)
[2019-10-19] MEDS ORDERED: LIDODERM700 M1 TOPIC (21:53)
[2019-10-19] MEDS ORDERED: IBUPROFEN600 MG ORAL (21:53)
[2019-10-19] MEDS ORDERED: CEPHALEXIN500 MG ORAL (21:53)
[2019-10-19] MEDS ORDERED: ROBAXIN-750750 MG PO (21:53)
[2019-10-19 21:59] LABS: ALANINE AMINOTRANSFERASE 17 U/L (12-78); ALBUMIN 3.4 G/DL (3.4-5.0); ALKALINE PHOSPHATASE 83 U/L (46-116); ASPARTATE AMINO TRANSFERASE 13 U/L (15-37); BILIRUBIN,TOTAL 0.2 MG/DL (0.2-1.0)
[2019-10-19] MEDS ORDERED: ROBITUSSIN COU118 M1 ORAL (22:28)
[2019-10-19] MEDS ORDERED: FLUCONAZOLE100 MG ORAL (22:28)
[2019-10-19] MEDS ORDERED: cefTRIAXone 1 GM in NS 55 ML IVPB ONE (22:30)
[2019-10-19] MEDS ORDERED: Acetaminophen 500mg (ES) tab ORAL ONE (22:45)
[2019-10-19] MEDS ORDERED: Fluconazole 100mg tab ORAL ONE (23:15)
[2019-10-19 23:19] VITALS: BP 120/85
--- NOTE | 2019-10-19 23:20 | NUR ---
ER DISCHARGE NOTE: Patient is cleared to be discharged per ERMD, pt is aox4, on room air, with stable vital signs. pt was given dc and prescription instructions, pt was able to verbalize understanding, pt id band and iv site removed without complications. pt is able to ambulate with steady gait. pt took all belongings.
--- NOTE | 2019-10-20 09:49 | Diagnostic Imaging Report ---
Indication: Neck pain, shoulder pain Technique: 3 views of the right shoulder Comparison: none Findings: There are degenerative proliferative changes of the inferior glenoid. The bones are osteoporotic. No acute fractures. No dislocations. The joint spaces are preserved. Surgical clips are seen in the supraclavicular soft tissues Impression: No acute process Mild degenerative changes
== END 2019-10-19 23:20 | disposition home or self-care (01) ==
LOC: EMR 20:15
DX: M79.10 Myalgia, unspecified site (principal); M19.011 Primary osteoarthritis, right shoulder; N39.0 Urinary tract infection, site not specified; I10 Essential (primary) hypertension; J44.9 Chronic obstructive pulmonary disease, unspecified; E11.9 Type 2 diabetes mellitus without complications; Z91.040 Latex allergy status; R55 Syncope and collapse; W19.XXXA Unspecified fall, initial encounter; Y92.091 Bathroom in other non-institutional residence as the place of occurrence of the external cause
CPT/HCPCS: 36415; 70450; 72125; 73030; 80053; 80307; 81003; 84484; 85025; 87086; 87181; 93005; 96365; 96375; J0696; J1885; Z7502; 99284